=== PATIENT | male | born 1950 | race Caucasian/White ===

== ENCOUNTER 2022-09-24 20:30 | Observation (INO) | payer MEDICARE, SELFPAY ==
[2022-09-24] VITALS (9 sets, daily range): BP systolic 104–157; BP diastolic 53–59; PULSE 83–104; RESP 16–24; TEMP 36.6–36.9; O2SAT 90–100; BMI 27.1; BMI 26.6
--- NOTE | 2022-09-24 20:44 | ED.VIS.DYS ---
HPI History of Present Illness Chief Complaint: Shortness of Breath Narrative Narrative: Patient presents with dyspnea and weakness. He was discharged from another hospital today to home. He lives by himself and cannot care for himself at home and he is still short of breath. He was admitted for COPD. He is denying any fever or chills. He admits to weakness. He is on 5 L of oxygen at home. [facility] Medical History COPD (chronic obstructive pulmonary disease) Home Medications albuterol sulfate 90 mcg/actuation aerosol inhaler (Proventil HFA) 2 puff inhalation Q4H PRN Wheezing 09/24/22 [History Last Taken Unknown] aspirin 81 mg chewable tablet 81 mg PO DAILY 09/24/22 [History Last Taken Unknown] atorvastatin 80 mg tablet 80 mg PO QHS 09/24/22 [History Last Taken Unknown] carvedilol 3.125 mg tablet 3.125 mg PO BID 09/24/22 [History Last Taken Unknown] dextromethorphan-guaifenesin ER 60 mg-1,200 mg tab,extend release,12hr 1 tab PO Q12H PRN Congestion 09/24/22 [History Last Taken Unknown] escitalopram oxalate 5 mg tablet 5 mg PO DAILY 09/24/22 [History Last Taken Unknown] fluticasone fur. 100 mcg-umeclid 62.5 mcg-vilant 25 mcg inhalat.powder (Trelegy Ellipta) 1 inh inhalation DAILY 09/24/22 [History Last Taken Unknown] gabapentin 300 mg capsule 300 mg PO TID PRN Pain 09/24/22 [History Last Taken Unknown] guaifenesin 600 mg tablet, extended release 12 hr 600 mg PO Q12H PRN Cold Symptoms 09/24/22 [History Last Taken Unknown] ipratropium 0.5 mg-albuterol 3 mg (2.5 mg base)/3 mL nebulization soln 3 ml inhalation Q4H PRN Shortness Of Breath 09/24/22 [History Last Taken Unknown] lisinopril 5 mg tablet 5 mg PO DAILY 09/24/22 [History Last Taken Unknown] lorazepam 0.5 mg tablet 0.5 mg PO TID PRN Anxiety 09/24/22 [History Last Taken Unknown] melatonin 3 mg capsule 6 mg PO QHS PRN Insomnia 09/24/22 [History Last Taken Unknown] quetiapine 25 mg tablet (Seroquel) 25 mg PO QHS 09/24/22 [History Last Taken Unknown] trazodone 100 mg tablet 100 mg PO QHS 09/24/22 [History Last Taken Unknown] trazodone 50 mg tablet 50 mg PO QHS 09/24/22 [History Last Taken Unknown] Allergy/AdvReac Type Severity Reaction Status Date / Time No Known Allergies Allergy Verified 09/24/22 20:37 Social History Smoking Status: Former smoker ROS ROS ED ROS Narrative Past medical history: Reviewed, includes COPD, hypertension Medications: Reviewed Social history: Noncontributory Review of systems: General: No fever. Generalized weakness Eyes: No visual changes ENT: No upper airway congestion, normal voice Neck: No neck pain Cardiovascular: No chest pain Respiratory: Dyspnea as in HPI Gastrointestinal: No abdominal pain, nausea vomiting or diarrhea Genitourinary: No dysuria Musculoskeletal: No myalgia or calf pain Skin: No rash Neurological: No memory loss, confusion or any focal weakness EXAM Physical Exam Narrative Exam Narrative: Physical exam General: Patient appears chronically ill. He appears in some distress Head: Normocephalic, Atraumatic Eyes: Conjunctiva not pale ENT: Somewhat dry mucous membranes Neck: Supple, Nontender, No lymphadenopathy Cardiovascular: Regular rate, Regular rhythm Respiratory: Coarse bilateral breath sounds with wheezing and rhonchi Abdomen: Soft, Nontender, Nondistended Back: Nontender, Normal Inspection. Negative for: CVA tenderness Extremities: Nontender, No edema Skin: Normal color, No rash Neurological: No focal deficits Const Vital Signs: 09/24/22 20:32 09/24/22 20:35 09/24/22 20:43 Temperature 98.5 F 98.5 F Temperature Source Temporal Temporal Pulse Rate 104 H 100 Respiratory Rate 18 18 Respiratory Effort Short of Breath Respiratory Depth Deep Blood Pressure 135/59 H 135/59 H Blood Pressure Mean 84 84 Pulse Ox 98 98 Oxygen Delivery Method Nasal Cannula Nasal Cannula Nasal Cannula Oxygen Flow Rate (L/min) 5 5 5 09/24/22 20:54 Temperature Temperature Source Pulse Rate 98 Respiratory Rate 16 Respiratory Effort Respiratory Depth Blood Pressure Blood Pressure Mean Pulse Ox Oxygen Delivery Method Oxygen Flow Rate (L/min) MDM MDM MDM Narrative Medical decision making narrative: In the pertinent interpretation: Chest x-ray read by me shows COPD. Otherwise no acute findings. Telemetry: Sinus rhythm with a rate in the 90s without ectopy EKG: Sinus rhythm with a rate of 98. Normal LA, QTc is slightly elevated at 472. Nonspecific changes throughout. Otherwise unremarkable EKG MDM: Patient has COPD. It is obvious it is quite severe. He is on home oxygen. He is also quite weak and I talked with him about ADLs he got home today and was quite short of breath however he does not feel like he could perform most of his ADLs. Because of this I talked to him about fpc placement and he is agreeable and I will admit him to the hospital so we can get this done. It is almost 10 PM and I cannot place him in a fpc tonight. I will talk to hospitalist for admission. Blood work, CBC CMP, troponin and natruretic peptide were unremarkable other than slight leukocytosis. There is no evidence of infection I do not believe the patient meets criteria for antibiotics at this time. Lab Data Labs: Laboratory Results - last 24 hr 09/24/22 09/24/22 09/24/22 20:35 20:35 20:35 WBC 14.9 H RBC 3.37 L Hgb 10.2 L Hct 32.6 L MCV 96.7 H MCH 30.3 MCHC 31.3 L RDW Std Deviation 52.0 H RDW Coeff of Jessica 14.9 H Plt Count 211 MPV 10.8 Immature Gran % (Auto) 0.600 Neut % (Auto) 80.7 H Lymph % (Auto) 10.3 L [place] % (Auto) 5.1 Eos % (Auto) 3.2 Baso % (Auto) 0.1 Absolute Neuts (auto) 12.0 H Absolute Lymphs (auto) 1.53 Nucleated RBC % 0 Differential Comment SCANNED Sodium 138 Potassium 4.5 Chloride 98 Carbon Dioxide 38.0 H Anion Gap 2 L BUN 27 H Creatinine 1.03 Estim Creat Clear Calc 59.72 Est GFR (MDRD) Af Amer 91 Est GFR (MDRD) Non-Af 75 BUN/Creatinine Ratio 26.2 H Glucose 107 H Calcium 8.5 Total Bilirubin 0.70 AST 37 ALT 66 H Alkaline Phosphatase 96 Troponin I High Sens 18 B-Natriuretic Peptide 38.1 Total Protein 6.8 Albumin 3.0 L Globulin 3.8 Albumin/Globulin Ratio 0.8 L Discharge Plan Triage Chief Complaint: Shortness of Breath ED Provider: Naresh Navarrete Dx/Rx/DC Orders Clinical Impression: COPD (chronic obstructive pulmonary disease), Weakness, Debility Prescriptions: No Action quetiapine [Seroquel] 25 mg Tablet 25 mg PO QHS atorvastatin 80 mg Tablet 80 mg PO QHS ipratropium-albuterol 0.5 mg-3 mg(2.5 mg base)/3 mL Solution For Nebulization 3 ml INHALATION Q4H PRN (Reason: Shortness Of Breath) trazodone 50 mg Tablet 50 mg PO QHS carvedilol 3.125 mg Tablet 3.125 mg PO BID Rx Instructions: must administer with a meal/food lorazepam 0.5 mg Tablet 0.5 mg PO TID PRN (Reason: Anxiety) trazodone 100 mg Tablet 100 mg PO QHS gabapentin 300 mg Capsule 300 mg PO TID PRN (Reason: Pain) dextromethorphan-guaifenesin 60-1,200 mg Tablet Extended Release 12 Hr 1 tab PO Q12H PRN (Reason: Congestion) aspirin 81 mg Tablet,Chewable 81 mg PO DAILY lisinopril 5 mg Tablet 5 mg PO DAILY albuterol sulfate [Proventil HFA] 90 mcg/actuation Hfa Aerosol Inhaler 2 puff INHALATION Q4H PRN (Reason: Wheezing) escitalopram oxalate 5 mg Tablet 5 mg PO DAILY guaifenesin 600 mg Tablet Extended Release 12hr 600 mg PO Q12H PRN (Reason: Cold Symptoms) Trelegy Ellipta 100-62.5-25 mcg Blister With Device 1 inh INHALATION DAILY melatonin 3 mg Capsule 6 mg PO QHS PRN (Reason: Insomnia) Primary Care Provider: [facility] Doctor,Out of Referrals: [facility] [address] Doctor,Out of [Primary Care Provider] - Disposition Disposition: Acute Care [facility]
--- NOTE | 2022-09-24 20:50 | RAD_ITS ---
STUDY: X-RAY CHEST REASON FOR EXAM: Male, 72 years old. sob TECHNIQUE: Single AP portable view of the chest. COMPARISON: None. FINDINGS: There is hyperinflation of the lungs consistent with chronic obstructive lung disease (COPD). Extensive fibrotic and scarring changes are seen and there is a large bulla on the right upper hemithorax measuring approximately 12.5 cm greatest dimension. No infiltrates. No effusions. There is no demonstrated pleural abnormality. There is moderate cardiac enlargement. Normal mediastinum and hugo. There is prominence of the pulmonary hilar arteries without peripheral pulmonary vascular congestion, suggesting pulmonary hypertension. There is atherosclerotic calcification of the aortic arch with tortuosity. There are diffuse degenerative changes of the visualized thoracic spine. There is degenerative osteoarthritis of the bilateral shoulders. There is no demonstrated abnormality of the visualized soft tissue structures of the upper abdomen. RAD/Chest 1 View (Portable) IMPRESSION: Severe chronic pulmonary disease. No definite acute abnormalities. Electronically Signed: Herber Barry MD at 21:16 EDT ,
[2022-09-24] MEDS: Ipratropium/Albuterol Sulfate 3 ML AMPUL.NEB INHALATION ×2 (20:52→23:23)
[2022-09-24 21:00] LABS: Absolute Lymphocyte Count 1.53 X10^3/uL (0.83-4.51); Basophil# 0.02 X10^3/uL; Basophil% 0.1 % (0-1); Eosinophil# 0.48 X10^3/uL; Eosinophils% 3.2 % (0-5); Hematocrit 32.6 % (40-54); Hemoglobin 10.2 g/dL (13.0-16.5); Lymphocyte # 1.53 X10^3/ul (0.83-4.51); Lymphocyte % 10.3 % (19-41); Mean Corp Hgb Conc 31.3 g/dL (32-36); Mean Corpuscular Hgb 30.3 pg (27.0-32.0); Mean Corpuscular Volume 96.7 fL (80-94); Mean Platelet Vol. 10.8 fl (6.2-12.0); Monocyte# 0.75 X10^3/uL; Monocyte% 5.1 % (0-10); NRBC Flagged by Analyzer 0 % (0-5); Neutrophil # 11.98 X10^3/uL (2.7-7.7); Neutrophil % 80.7 % (47-70); POSITIVE COUNT YES; Platelet Count 211 K/mm3 (150-450); RBC Distribution Width CV 14.9 % (11.6-14.6); Red Blood Count 3.37 M/mm3 (4.6-6.2); White Blood Count 14.9 K/mm3 (4.4-11.0)
[2022-09-24 21:02] LABS: Differential Indicated SCAN CRITERIA MET
[2022-09-24 21:10] LABS: ALB/GLOB Ratio 0.8 RATIO (0.9-2.4); AST(SGOT) 37 U/L (15-37); Alanine Aminotransfer ALT/SGPT 66 U/L (16-61); Alkaline Phosphatase 96 U/L (45-117); Anion Gap 2 (5-15); BUN 27 mg/dL (7-18); BUN/Creat Ratio 26.2 RATIO (10-20); Calcium,Total 8.5 mg/dL (8.5-10.1); Chloride 98 mmol/L (98-107); Creatinine, Serum 1.03 mg/dL (0.70-1.30); EST Glomerular Filtration Rate 75 mL/min (>60); Est Glom Filt Rate - Afr Amer 91 mL/min (>60); Estimated Creatinine Clearance 59.72 ml/min; Globulin 3.8 g/dL (2.2-4.2); Glucose 107 mg/dL (74-106); Potassium 4.5 mmol/L (3.5-5.1); Protein, Total 6.8 g/dL (6.4-8.2); Sodium Level 138 mmol/L (136-145); Troponin-I HS 18 pg/mL (3.0-78.0)
[2022-09-24 21:20] LABS: Differential Comment SCANNED
[2022-09-24 21:27] LABS: BNP,B-Type NATRIURETIC PEPTIDE 38.1 pg/mL (0-100)
--- NOTE | 2022-09-24 23:51 | PCM.HP.STD ---
HPI - General General Date of Admission: 09/24/22 Date of Service: 09/24/22 Chief Complaint: feel short of breath HPI Narrative LILIA BALTAZAR, is a 72 M who presents with shortness of breath after just being discharged from [facility] for COPD (hospitalized 3-5 days). He went home at 5 pm but felt very short of breath, even when sitting there trying to hold conversation with neighbor. He is also feeling like he can't keep up his ADL's in this state. He is on 5 liters baseline and does use duoneb machine which he tried at home tonight but it did not bring relief of symptoms. His daughter sees him about once weekly, and does grocery shopping for him. Other than that he is alone for providing care except for neighbor. He was a lifelong smoker, stopped 3 yrs ago. He follows infrequently with a manufacturing process technician, last appt about 8 mo ago. He has history of mild heart attack about 4 years ago and states he is continuing his medications for this. [facility] Medical History Amputation of arm CAD (coronary artery disease) COPD (chronic obstructive pulmonary disease) Ex-smoker Home Medications albuterol sulfate 90 mcg/actuation aerosol inhaler (Proventil HFA) 2 puff inhalation Q4H PRN Wheezing 09/24/22 [History Last Taken 09/24/22] aspirin 81 mg chewable tablet 81 mg PO DAILY heart health 09/24/22 [History Last Taken 09/24/22] atorvastatin 80 mg tablet 80 mg PO QHS cholesterol 09/24/22 [History Last Taken 09/23/22] carvedilol 3.125 mg tablet 3.125 mg PO BIDCM Check with primary doctor 09/24/22 [History Last Taken 09/24/22] dextromethorphan-guaifenesin ER 60 mg-1,200 mg tab,extend release,12hr 1 tab PO Q12H PRN Congestion 09/24/22 [History Last Taken Unknown] escitalopram oxalate 5 mg tablet 5 mg PO DAILY Check with primary doctor 09/24/22 [History Last Taken 09/24/22] fluticasone fur. 100 mcg-umeclid 62.5 mcg-vilant 25 mcg inhalat.powder (Trelegy Ellipta) 1 inh inhalation DAILY Check with primary doctor 09/24/22 [History Last Taken Unknown] gabapentin 300 mg capsule 300 mg PO TID PRN Pain 09/24/22 [History Last Taken Unknown] guaifenesin 600 mg tablet, extended release 12 hr 1,200 mg PO Q12H PRN Cold Symptoms 09/24/22 [History Last Taken 09/24/22] ipratropium 0.5 mg-albuterol 3 mg (2.5 mg base)/3 mL nebulization soln 3 ml inhalation Q4H PRN Shortness Of Breath 09/24/22 [History Last Taken 09/24/22] lisinopril 5 mg tablet 5 mg PO DAILY Check with primary doctor 09/24/22 [History Last Taken 09/24/22] lorazepam 0.5 mg tablet 0.5 mg PO TID PRN Anxiety 09/24/22 [History Last Taken 09/24/22] melatonin 3 mg capsule 6 mg PO QHS PRN Insomnia 09/24/22 [History Last Taken Unknown] quetiapine 25 mg tablet (Seroquel) 25 mg PO QHS sleep 09/24/22 [History Last Taken 09/23/22] trazodone 100 mg tablet 100 mg PO QHS sleep 09/24/22 [History Last Taken Unknown] Allergy/AdvReac Type Severity Reaction Status Date / Time No Known Allergies Allergy Verified 09/24/22 20:37 Surgical History (Updated 09/24/22 @ 22:39 by Partha Sweet) History of ankle surgery Social History Smoking Status: Former smoker ROS ROS Narrative pertinent negatives and positives above per HPI Vital Signs Vital Signs Vital Signs: 09/24/22 20:32 09/24/22 20:35 09/24/22 20:43 Temperature 98.5 F 98.5 F Temperature Source Temporal Temporal Pulse Rate 104 H 100 Respiratory Rate 18 18 Respiratory Effort Short of Breath Respiratory Depth Deep Respiratory Pattern Blood Pressure 135/59 H 135/59 H Blood Pressure Mean 84 84 Blood Pressure Source Blood Pressure Position Blood Pressure Location Pulse Ox 98 98 Oxygen Delivery Method Nasal Cannula Nasal Cannula Nasal Cannula Oxygen Flow Rate (L/min) 5 5 5 09/24/22 20:54 09/24/22 21:51 09/24/22 22:46 Temperature 98.0 F 97.8 F Temperature Source Oral Oral Pulse Rate 98 94 89 Respiratory Rate 16 18 24 H Respiratory Effort Respiratory Depth Respiratory Pattern Blood Pressure 104/53 L 157/55 H Blood Pressure Mean 70 89 Blood Pressure Source Monitor Blood Pressure Position Semi-Fowlers Blood Pressure Location Right Arm Pulse Ox 100 100 Oxygen Delivery Method Nasal Cannula Nasal Cannula Oxygen Flow Rate (L/min) 5 5 09/24/22 22:54 09/24/22 22:56 09/24/22 23:04 Temperature 97.8 F Temperature Source Oral Pulse Rate 89 Respiratory Rate 24 H Respiratory Effort Normal Respiratory Depth Normal Respiratory Pattern Normal Blood Pressure 157/55 H Blood Pressure Mean 89 Blood Pressure Source Monitor Blood Pressure Position Semi-Fowlers Blood Pressure Location Right Arm Pulse Ox 90 97 Oxygen Delivery Method Nasal Cannula Nasal Cannula Nasal Cannula Oxygen Flow Rate (L/min) 5 4 3 Weight Weight: 170 lb 3.15 oz Body Mass Index (BMI) 26.6 Physical Exam Const alert General Appearance: cooperative HEENT normocephalic and head/scalp atraumatic Neck supple Resp normal respiratory effort Resp Narrative: Non productive cough. Course rales. Sounds plugged Cardio regular rate and regular rhythm GI normal to inspection, nondistended, normoactive bowel sounds Skin Skin Narrative: warm adn dry w/o edema Results Medical Records Data Attestation: I reviewed the patient's medical records Lab / Micro Data Attestation: I reviewed the patient's lab results. Result Diagrams: 09/24/22 20:35 09/24/22 20:35 Labs: Laboratory Results - last 24 hr 09/24/22 20:35: WBC 14.9 H, RBC 3.37 L, Hgb 10.2 L, Hct 32.6 L, MCV 96.7 H, MCH 30.3, MCHC 31.3 L, RDW Std Deviation 52.0 H, RDW Coeff of Jessica 14.9 H, Plt Count 211, MPV 10.8, Immature Gran % (Auto) 0.600, Neut % (Auto) 80.7 H, Lymph % (Auto) 10.3 L, [place] % (Auto) 5.1, Eos % (Auto) 3.2, Baso % (Auto) 0.1, Absolute Neuts (auto) 12.0 H, Absolute Lymphs (auto) 1.53, Nucleated RBC % 0, Differential Comment SCANNED 09/24/22 20:35: Sodium 138, Potassium 4.5, Chloride 98, Carbon Dioxide 38.0 H, Anion Gap 2 L, BUN 27 H, Creatinine 1.03, Estim Creat Clear Calc 59.72, Est GFR (MDRD) Af Amer 91, Est GFR (MDRD) Non-Af 75, BUN/Creatinine Ratio 26.2 H, Glucose 107 H, Calcium 8.5, Total Bilirubin 0.70, AST 37, ALT 66 H, Alkaline Phosphatase 96, Troponin I High Sens 18, Total Protein 6.8, Albumin 3.0 L, Globulin 3.8, Albumin/Globulin Ratio 0.8 L 09/24/22 20:35: B-Natriuretic Peptide 38.1 Assessment & Plan Assessment/Plan (1) COPD (chronic obstructive pulmonary disease): (2) Debility: (3) Weakness: (4) CAD (coronary artery disease): PLAN: Plan Severe COPD, Previous tobacco Use. At this point no sign to suggest acute flare or infection. CXR without consolidation. It shows hyperinflation. This is a worsening of chronic process. Sats 98-100 on 5 liters throughout interview. The patient is being admitted mainly for placement b/c he feels he can't do all his ADLs alone at this point. Continue Budesonide q12 hr schedule Continue daily Ellipta inhaler. Duonebs Incentive spirometry. Mucinex PT, OT and criminal justice social worker consults CAD Resume Coreg 3.25, baby aspirin HLD Resume statin 80 mg lipitor Normocytic Anemia Hgb 10.2, monitor. The patient is DNR CCA no intubation, discussed in detail with Mr Baltazar Charges/Coding Visit Charges Inpatient E&M: 02889 Init Hosp L3
[2022-09-25] VITALS (20 sets, daily range): BP systolic 97–131; BP diastolic 38–60; PULSE 60–88; RESP 18–24; TEMP 36.6–37.3; O2SAT 85–98
--- NOTE | 2022-09-25 02:33 | NURSING ---
Patient was up to the bathroom. Turned him up to 5L and was 80%. Once back to bed, patient was >90% on 2L.
[2022-09-25 05:42] LABS: Absolute Neutrophil Count 7.3 X10^3/uL (2.0-7.7); Basophil# 0.01 X10^3/uL; Basophil% 0.1 % (0-1); Eosinophil# 0.36 X10^3/uL; Eosinophils% 3.7 % (0-5); Hematocrit 27.6 % (40-54); Hemoglobin 8.4 g/dL (13.0-16.5); Lymphocyte % 13.5 % (19-41); Mean Corp Hgb Conc 30.4 g/dL (32-36); Mean Corpuscular Hgb 29.7 pg (27.0-32.0); Mean Corpuscular Volume 97.5 fL (80-94); Monocyte# 0.68 X10^3/uL; Monocyte% 7.1 % (0-10); NRBC Flagged by Analyzer 0 % (0-5); Neutrophil # 7.25 X10^3/uL (2.7-7.7); Neutrophil % 75.2 % (47-70); Platelet Count 191 K/mm3 (150-450); RBC Distribution Width CV 14.8 % (11.6-14.6); RBC Distribution Width SD 52.4 fl (35.1-43.9); Red Blood Count 2.83 M/mm3 (4.6-6.2); White Blood Count 9.6 K/mm3 (4.4-11.0)
[2022-09-25 06:04] LABS: Anion Gap 1 (5-15); BUN 24 mg/dL (7-18); BUN/Creat Ratio 28.4 RATIO (10-20); Calcium,Total 8.1 mg/dL (8.5-10.1); Chloride 99 mmol/L (98-107); Creatinine, Serum 0.85 mg/dL (0.70-1.30); EST Glomerular Filtration Rate 94 mL/min (>60); Est Glom Filt Rate - Afr Amer 114 mL/min (>60); Estimated Creatinine Clearance 72.36 ml/min; Glucose 81 mg/dL (74-106); Potassium 4.3 mmol/L (3.5-5.1); Sodium Level 141 mmol/L (136-145)
[2022-09-25] MEDS: Budesonide Respules 0.5 MG/2 ML AMPUL.NEB. INHALATION (07:37)
[2022-09-25] MEDS: Ipratropium/Albuterol Sulfate 3 ML AMPUL.NEB INHALATION ×5 (07:37→23:35)
[2022-09-25] MEDS: Escitalopram Oxalate 10 MG Tablet 5 MG PO (08:58)
[2022-09-25] MEDS: Lisinopril 5 MG Tablet PO (08:58)
[2022-09-25] MEDS: Carvedilol 3.125 MG TABLET PO (08:58)
[2022-09-25] MEDS: Aspirin 81 MG TAB.CHEW PO (08:58)
[2022-09-25] MEDS: Enoxaparin 40 MG/0.4 ML Syringe SC (08:59)
--- NOTE | 2022-09-25 09:29 | PCM.PN.HOSP ---
Reason for Visit Reason for Visit: Diagnoses Atherosclerotic heart disease of seminole coronary artery without angina pectoris (09/24/22) Chronic obstructive pulmonary disease, unspecified (09/24/22) Weakness (09/24/22) Other malaise (09/24/22) Subjective Subjective Endorses still feeling weak and short of breath Objective Data Objective Data Vital Signs: Vital Signs Temp Pulse Resp BP Pulse Ox O2 Del Method O2 Flow Rate 98.2 F 81 20 H 117/56 L 94 Nasal Cannula 3 09/25/22 08:32 09/25/22 08:32 09/25/22 08:32 09/25/22 08:32 09/25/22 08:32 09/25/22 08:40 09/25/22 08:40 Oxygen Flow Rate (L/min) 3 Oxygen Delivery Method Nasal Cannula Weight: 77.2 kg Body Mass Index (BMI) 26.6 Lab / Micro Data Result Diagrams: 09/25/22 05:05 09/25/22 05:05 Labs: Laboratory Results - last 24 hr 09/24/22 20:35: WBC 14.9 H, RBC 3.37 L, Hgb 10.2 L, Hct 32.6 L, MCV 96.7 H, MCH 30.3, MCHC 31.3 L, RDW Std Deviation 52.0 H, RDW Coeff of Jessica 14.9 H, Plt Count 211, MPV 10.8, Immature Gran % (Auto) 0.600, Neut % (Auto) 80.7 H, Lymph % (Auto) 10.3 L, [place] % (Auto) 5.1, Eos % (Auto) 3.2, Baso % (Auto) 0.1, Absolute Neuts (auto) 12.0 H, Absolute Lymphs (auto) 1.53, Nucleated RBC % 0, Differential Comment SCANNED 09/24/22 20:35: Sodium 138, Potassium 4.5, Chloride 98, Carbon Dioxide 38.0 H, Anion Gap 2 L, BUN 27 H, Creatinine 1.03, Estim Creat Clear Calc 59.72, Est GFR (MDRD) Af Amer 91, Est GFR (MDRD) Non-Af 75, BUN/Creatinine Ratio 26.2 H, Glucose 107 H, Calcium 8.5, Total Bilirubin 0.70, AST 37, ALT 66 H, Alkaline Phosphatase 96, Troponin I High Sens 18, Total Protein 6.8, Albumin 3.0 L, Globulin 3.8, Albumin/Globulin Ratio 0.8 L 09/24/22 20:35: B-Natriuretic Peptide 38.1 09/25/22 05:05: WBC 9.6, RBC 2.83 L, Hgb 8.4 L, Hct 27.6 L, MCV 97.5 H, MCH 29.7, MCHC 30.4 L, RDW Std Deviation 52.4 H, RDW Coeff of Jessica 14.8 H, Plt Count 191, MPV 10.0, Immature Gran % (Auto) 0.400, Neut % (Auto) 75.2 H, Lymph % (Auto) 13.5 L, [place] % (Auto) 7.1, Eos % (Auto) 3.7, Baso % (Auto) 0.1, Absolute Neuts (auto) 7.3, Absolute Lymphs (auto) 1.30, Nucleated RBC % 0 09/25/22 05:05: Sodium 141, Potassium 4.3, Chloride 99, Carbon Dioxide 41.0 H, Anion Gap 1 L, BUN 24 H, Creatinine 0.85, Estim Creat Clear Calc 72.36, Est GFR (MDRD) Af Amer 114, Est GFR (MDRD) Non-Af 94, BUN/Creatinine Ratio 28.4 H, Glucose 81, Calcium 8.1 L Physical Exam Narrative General: Alert, oriented, thin HEENT: Atraumatic, normocephalic Eyes: Anicteric, normal conjunctiva, extraocular movements grossly intact Neck: Supple Respiratory: Slight increased work of breathing, somewhat diminished throughout Cardiovascular: Regular rate and rhythm GI: Soft, nontender, nondistended Extremities: No edema Musculoskeletal: Moving all extremities Neuro: No overt focal neurological deficits Skin: No rashes appreciated Psych: Cooperative Assessment & Plan Assessment/Plan (1) COPD (chronic obstructive pulmonary disease): (2) Debility: (3) Weakness: (4) CAD (coronary artery disease): PLAN: Plan #Weakness, failure to thrive -Presented same day after being discharged from [facility] where he was hospitalized for 3 to 5 days for COPD exacerbation -Was feeling short of breath even just sitting trying to talk with neighbor and feels like he cannot maintain his ADLs -PT/OT -Case management -Given generalized weakness and age and comorbidities will decrease atorvastatin to 40 mg #Chronic hypoxic respiratory failure secondary to COPD -Chronically on 5 L O2 at baseline and uses DuoNebs at home -Does feel he has had some increased shortness of breath -Increase nebs to every 4 hours he reports this so he takes it at home, budesonide twice daily -BNP 38 -No previous chest x-ray and x-ray on admission with read still pending, given complaints we will repeat chest x-ray with PA and lateral to assess for any changes and will add Mucinex -Continue incentive spirometry -COVID-negative, respiratory panel pending -Low threshold to start steroids for any escalating symptoms but did not sound to be in exacerbation on presentation #History of coronary artery disease -Coreg changed to metoprolol due to low BP and possible bronchospasm, aspirin, statin #Anemia of unclear chronicity -Hemoglobin 10.2 on admission and this a.m. is 8.4 -No signs or symptoms of bleeding -All cell lines decreased -Continue to monitor -Can consider FOBT and further work-up if indicated #chronic HFpEF -Echo 07/03/2021 based on note from [place] demonstrates grade 1 left ventricular diastolic dysfunction EF around 40% with dilated RV with RV systolic function normal #DVT ppx: Lovenox subcu oLve Maria MD Time spent in the patient's overall evaluation,decision-making process, review of diagnostic data, adjustment of management, discussion with other providers, nursing nursing and ancillary staff involved in patient's care documentation, 30 minutes Charges/Coding Visit Charges Inpatient E&M: 83727 Subs Hosp L2
--- NOTE | 2022-09-25 09:49 | CASEMGMT ---
Discharge Planning SNF list created and given to SW. Keri Luna
--- NOTE | 2022-09-25 12:52 | CASEMGMT ---
Social Work SW received referral for SNF placement. SW met with pt and introduced self and role of SW. Pt is alert and oriented and willing to speak with SW for assessment. PCP: Pt states he has a PCP at the [facility] but pt cannot remember his name Specialists: Pt has a spring setter and management intern in [place] but pt cannot remember their names [facility] Insurance: Pt has both [employer] and Medicare A&B listed. Phone call to [employer] to clarify and awaiting return call. Pt states he has [employer] but does not have his wallet or insurance cards with him. LNOK: Mary Rivas, daughter Living Arrangements: Pt lives at home alone in a one story home with no steps to enter. Pt states he is independent with self care and household care. Pt does state he has been having difficulty cooking for himself and caring for himself. Transportation: Pt does not drive. Dgt and neighbor helps with groceries, dgt takes to doctor appointments DME: Oxygen through [employer], shower chair. No other DME. Pt states he was at the [facility] hospital this week and discharged yesterday. Pt with shortness of breath and came to [facility]. Pt stating he was planning to go to SNF, pt could not remember which one, from [facility] but was told yesterday he was being discharged home instead. Pt cannot understand why this was. Pt stating he needs additional assistance and cannot return home alone. A list of SNF providers including quality and resource use data and consistent with the patient?s preferred geographic region, medical needs, and insurance network were provided from the [employer] Guide. Pt states he does not have preference on SNF. SW encouraged pt to review list and SW offered to help pt review. Pt refused stating he does not care where he goes. SW inquired about geographical area and pt choosing [place]. Pt agreeable to phone call to dgt to discuss d/c plan. Phone call to dgt and VM left requesting return call. PLAN: SNF placement [facility] [place]
--- NOTE | 2022-09-25 14:43 | CASEMGMT ---
CANDICE CM in to discuss [place] form with patient. RN CM explained [place] form, patient voiced understanding. Pt signed form and filed in chart. Pt provided with a copy of signed [place] form. Patient had no further questions or concerns at this time.
--- NOTE | 2022-09-25 15:18 | CASEMGMT ---
Social Work No return call from pt daughter. NICA placed call to Patient [employer] who states pt insurance is [employer]. SW met with pt again and reviewed list of in network SNF providers. SW read information to pt. Pt again states he does not care which facility he goes to but prefers [facility] or [facility]. valeria Saavedra library clerical assistant updated and to send referrals to facilities in the requested area. Plan: SNF, pending acceptance and precert TOMMY [place]
--- NOTE | 2022-09-25 15:39 | CASEMGMT ---
Discharge Planning Patient would like SNF placement close to his daughter in [place]. Referrals sent via [facility] to [facility], [facility], [facility], [facility], and [facility]. Keri Luna
--- NOTE | 2022-09-25 16:50 | RAD_ITS ---
STUDY: X-RAY CHEST REASON FOR EXAM: Male, 72 years old. Refractory SOB TECHNIQUE: PA and lateral views of the chest. COMPARISON: September 24, 2022 FINDINGS: There is hyperinflation of the lungs consistent with chronic obstructive lung disease (COPD). There are moderate interstitial increased opacities in the mid and lower lungs. There is no demonstrated pleural abnormality. Normal size heart. Normal mediastinum and hugo. Normal visualized pulmonary arteries. Normal visualized aortic arch and descending thoracic aorta. There are diffuse degenerative changes of the visualized thoracic spine. There is degenerative change of the right shoulder. There are degenerative, postoperative, and posttraumatic changes of the left shoulder. There is no demonstrated abnormality of the visualized soft tissue structures of the upper abdomen. RAD/Chest PA and Lateral IMPRESSION: COPD with interstitial fibrosis or edema. Electronically Signed: Awais Fernandez MD at 18:39 EDT ,
[2022-09-25] MEDS: Gabapentin 300 MG Capsule PO (17:39)
[2022-09-25] MEDS: Metoprolol Tartrate 25 MG Tablet 12.5 MG PO (23:24)
[2022-09-25] MEDS: Atorvastatin Calcium 80 MG Tablet 40 MG PO (23:25)
[2022-09-25] MEDS: guaiFENesin 1,200 MG Tablet 1200 MG PO (23:25)
[2022-09-25] MEDS: MELATONIN 3 MG TABLET 6 MG PO (23:29)
[2022-09-25] MEDS: traZODone 50 MG Tablet PO (23:29)
[2022-09-25] MEDS: 0.9% Saline Lock 10 ML Syringe IV (23:45)
[2022-09-26] VITALS (18 sets, daily range): BP systolic 91–135; BP diastolic 54–78; PULSE 63–83; RESP 12–28; TEMP 36.6–37.1; O2SAT 79–99
--- NOTE | 2022-09-26 01:51 | NURSING ---
Patient got up to the bathroom without his NC O2 on. Patient dropped to 79%.
[2022-09-26 06:07] LABS: Absolute Lymphocyte Count 1.12 X10^3/uL (0.83-4.51); Absolute Neutrophil Count 6.5 X10^3/uL (2.0-7.7); Basophil# 0.01 X10^3/uL; Basophil% 0.1 % (0-1); Eosinophil# 0.27 X10^3/uL; Eosinophils% 3.2 % (0-5); Hematocrit 27.2 % (40-54); Hemoglobin 8.4 g/dL (13.0-16.5); Lymphocyte # 1.12 X10^3/ul (0.83-4.51); Lymphocyte % 13.2 % (19-41); Mean Corp Hgb Conc 30.9 g/dL (32-36); Mean Corpuscular Hgb 29.9 pg (27.0-32.0); Mean Corpuscular Volume 96.8 fL (80-94); Mean Platelet Vol. 10.2 fl (6.2-12.0); Monocyte# 0.62 X10^3/uL; Monocyte% 7.3 % (0-10); NRBC Flagged by Analyzer 0 % (0-5); Neutrophil # 6.46 X10^3/uL (2.7-7.7); Neutrophil % 75.8 % (47-70); Platelet Count 170 K/mm3 (150-450); RBC Distribution Width SD 53.1 fl (35.1-43.9); Red Blood Count 2.81 M/mm3 (4.6-6.2); White Blood Count 8.5 K/mm3 (4.4-11.0)
[2022-09-26 06:30] LABS: Anion Gap 2 (5-15); BUN 22 mg/dL (7-18); BUN/Creat Ratio 25.2 RATIO (10-20); Calcium,Total 8.2 mg/dL (8.5-10.1); Chloride 101 mmol/L (98-107); Creatinine, Serum 0.87 mg/dL (0.70-1.30); EST Glomerular Filtration Rate 91 mL/min (>60); Est Glom Filt Rate - Afr Amer 110 mL/min (>60); Glucose 86 mg/dL (74-106); Sodium Level 143 mmol/L (136-145)
[2022-09-26] MEDS: Budesonide Respules 0.5 MG/2 ML AMPUL.NEB. INHALATION ×2 (06:48→18:44)
[2022-09-26] MEDS: Ipratropium/Albuterol Sulfate 3 ML AMPUL.NEB INHALATION ×3 (06:48→18:43)
--- NOTE | 2022-09-26 07:56 | PCM.PN.HOSP ---
Reason for Visit Reason for Visit: Diagnoses Atherosclerotic heart disease of [place] coronary artery without angina pectoris (09/24/22) Chronic obstructive pulmonary disease, unspecified (09/24/22) Weakness (09/24/22) Other malaise (09/24/22) Subjective Subjective Follow-up shortness of breath and debility. Feels more short of breath this morning, attempted BiPAP overnight but only tolerated it for 2 to 3 hours before he could not sleep. Open to wearing it but reports he needs something to help him sleep without the case Objective Data Objective Data Vital Signs: Vital Signs Temp Pulse Resp BP Pulse Ox O2 Del Method O2 Flow Rate 98.8 F 75 16 91/78 90 Nasal Cannula 2 09/26/22 05:53 09/26/22 06:49 09/26/22 06:49 09/26/22 05:53 09/26/22 06:49 09/26/22 06:49 09/26/22 06:49 FiO2 30 09/26/22 01:47 Oxygen Flow Rate (L/min) 2 Oxygen Delivery Method Nasal Cannula Weight: 77.2 kg Body Mass Index (BMI) 26.6 Intake & Output: Intake and Output for Last 24 Hours 09/24/22 09/25/22 09/26/22 23:59 23:59 23:59 Intake Total 350 / 350 Balance 350 / 350 Lab / Micro Data Result Diagrams: 09/26/22 05:35 09/26/22 05:35 Labs: Laboratory Results - last 24 hr 09/26/22 05:35: WBC 8.5, RBC 2.81 L, Hgb 8.4 L, Hct 27.2 L, MCV 96.8 H, MCH 29.9, MCHC 30.9 L, RDW Std Deviation 53.1 H, RDW Coeff of Jessica 15.0 H, Plt Count 170, MPV 10.2, Immature Gran % (Auto) 0.400, Neut % (Auto) 75.8 H, Lymph % (Auto) 13.2 L, [place] % (Auto) 7.3, Eos % (Auto) 3.2, Baso % (Auto) 0.1, Absolute Neuts (auto) 6.5, Absolute Lymphs (auto) 1.12, Nucleated RBC % 0 09/26/22 05:35: Sodium 143, Potassium 4.0, Chloride 101, Carbon Dioxide 40.0 H, Anion Gap 2 L, BUN 22 H, Creatinine 0.87, Estim Creat Clear Calc 70.70, Est GFR (MDRD) Af Amer 110, Est GFR (MDRD) Non-Af 91, BUN/Creatinine Ratio 25.2 H, Glucose 86, Calcium 8.2 L Micro: Microbiology 09/25/22 13:35 Mucosa - Nasopharyngeal Respiratory Panel (PCR) - Final 09/25/22 13:20 Nasal Secretion SARS-CoV-2 Antigen (Rapid) - Final Radiography Diagnostic Testing: Radiology Impression Chest X-Ray 09/25/22 16:50 IMPRESSION: COPD with interstitial fibrosis or edema. 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 Neuro: No overt focal neurological deficits Skin: No rashes appreciated Psych: Cooperative Assessment & Plan Assessment/Plan (1) COPD (chronic obstructive pulmonary disease): (2) Debility: (3) Weakness: (4) CAD (coronary artery disease): PLAN: Plan #Weakness, failure to thrive -Presented same day after being discharged from [facility] where he was hospitalized for 3 to 5 days for COPD exacerbation -Was feeling short of breath even just sitting trying to talk with neighbor and feels like he cannot maintain his ADLs -PT/OT -Case management -Given generalized weakness and age and comorbidities will decrease atorvastatin to 40 mg -09/26: PT evaluated and recommended rehab/SNF/TCU, patient agreeable to SNF #Increased shortness of breath and chronic hypoxic respiratory failure secondary to COPD -Chronically on 5 L O2 at baseline and uses DuoNebs at home -Does feel he has had some increased shortness of breath -Increase nebs to every 4 hours he reports this so he takes it at home, budesonide twice daily -BNP 38 -No previous chest x-ray and x-ray on admission with read still pending, given complaints we will repeat chest x-ray with PA and lateral to assess for any changes and will add Mucinex -Continue incentive spirometry -COVID-negative, respiratory panel pending -Low threshold to start steroids for any escalating symptoms but did not sound to be in exacerbation on presentation -09/26: COVID and respiratory panel negative, remains on nebs, Mucinex, budesonide. Was tried briefly on room air last night and had O2 sat of 79%, continues to have increased shortness of breath, very poor airflow and wheezes and has wet cough but is unable to produce sputum, continue flutter valve, I-S, will order chest physiotherapy and IV steroids as he has failed current measures. Medication scheduled to help him sleep so he is able to tolerate BiPAP #History of coronary artery disease -Coreg changed to metoprolol due to low BP and possible bronchospasm, aspirin, statin #Anemia of unclear chronicity -Hemoglobin 10.2 on admission and this a.m. is 8.4 -No signs or symptoms of bleeding -All cell lines decreased -Continue to monitor -Can consider FOBT and further work-up if indicated -09/26: Hemoglobin stable today at 8.4, continue current medications #chronic HFpEF -Echo 07/03/2021 based on note from [place] demonstrates grade 1 left ventricular diastolic dysfunction EF around 40% with dilated RV with RV systolic function normal #DVT ppx: Lovenox subcu Love Maria MD Time spent in the patient's overall evaluation,decision-making process, review of diagnostic data, adjustment of management, discussion with other providers, nursing nursing and ancillary staff involved in patient's care documentation, 30 minutes Charges/Coding Visit Charges Inpatient E&M: 68543 Subs Hosp L2
[2022-09-26] MEDS: Enoxaparin 40 MG/0.4 ML Syringe SC (09:08)
[2022-09-26] MEDS: guaiFENesin 1,200 MG Tablet 1200 MG PO ×2 (09:08→22:15)
[2022-09-26] MEDS: Aspirin 81 MG TAB.CHEW PO (09:08)
[2022-09-26] MEDS: Escitalopram Oxalate 10 MG Tablet 5 MG PO (09:08)
[2022-09-26] MEDS: Metoprolol Tartrate 25 MG Tablet 12.5 MG PO ×2 (09:08→22:14)
--- NOTE | 2022-09-26 10:53 | CASEMGMT ---
Social Work SW called daughter, left another message for her. SW met w/pt, reviewed the nursing homes that accepted him and their locations. Pt is agreeable to the referral at [facility]. D/C retail plannerjones Saavedra will let them know to start precert. JENNIFER Badillo
--- NOTE | 2022-09-26 11:05 | CASEMGMT ---
Discharge Planning Patient has chosen [facility] and they have accepted. Updates sent via [employer]. Asked that pre-cert be submitted. Keri Luna
--- NOTE | 2022-09-26 11:18 | CASEMGMT ---
Discharge Planning [facility] to start pre-cert. Keri Luna
[2022-09-26] MEDS: 0.9% Saline Lock 10 ML Syringe IV ×2 (14:09→22:22)
[2022-09-26] MEDS: Methylprednisolone Sod Succ 40 MG/ML VIAL IV ×2 (14:09→22:11)
[2022-09-26] MEDS: Albuterol 2.5 MG/3 ML VIAL.NEB. INHALATION (15:02)
[2022-09-26] MEDS: Acetaminophen 325 MG Tablet 650 MG PO (17:31)
[2022-09-26] MEDS: Atorvastatin Calcium 80 MG Tablet 40 MG PO (22:13)
[2022-09-26] MEDS: traZODone 100 MG Tablet PO (22:15)
[2022-09-26] MEDS: MELATONIN 3 MG TABLET 10 MG PO (22:16)
[2022-09-27] VITALS (15 sets, daily range): BP systolic 122–147; BP diastolic 58–65; PULSE 63–90; RESP 16–22; TEMP 36.5–36.8; O2SAT 92–98
[2022-09-27] MEDS: LORazepam 0.5 MG Tablet 0.25 MG PO ×2 (00:04→22:46)
[2022-09-27] MEDS: Albuterol 2.5 MG/3 ML VIAL.NEB. INHALATION (01:36)
[2022-09-27] MEDS: Methylprednisolone Sod Succ 40 MG/ML VIAL IV ×2 (05:50→13:43)
[2022-09-27] MEDS: 0.9% Saline Lock 10 ML Syringe IV (05:51)
[2022-09-27] MEDS: Budesonide Respules 0.5 MG/2 ML AMPUL.NEB. INHALATION ×2 (06:40→19:44)
[2022-09-27] MEDS: Ipratropium/Albuterol Sulfate 3 ML AMPUL.NEB INHALATION ×5 (06:40→23:58)
--- NOTE | 2022-09-27 07:14 | PCM.PN.HOSP ---
Reason for Visit Reason for Visit: Diagnoses Atherosclerotic heart disease of [place] coronary artery without angina pectoris (09/24/22) Chronic obstructive pulmonary disease, unspecified (09/24/22) Weakness (09/24/22) Other malaise (09/24/22) Subjective Subjective Does feel his breathing is improving but was unable to sleep last night since the steroids were started, still has cough but has been unable to produce sputum for sample Objective Data Objective Data Vital Signs: Vital Signs Temp Pulse Resp BP Pulse Ox O2 Del Method O2 Flow Rate 98.2 F 73 22 H 122/65 H 96 Nasal Cannula 2 09/27/22 05:49 09/27/22 06:40 09/27/22 06:40 09/27/22 05:49 09/27/22 06:40 09/27/22 06:40 09/27/22 06:40 FiO2 30 09/26/22 22:45 Oxygen Flow Rate (L/min) 2 Oxygen Delivery Method Nasal Cannula Weight: 77.2 kg Body Mass Index (BMI) 26.6 Intake & Output: Intake and Output for Last 24 Hours 09/25/22 09/26/22 09/27/22 23:59 23:59 23:59 Intake Total 350 / 350 250 / 250 300 / 300 Output Total 250 / 250 Balance 350 / 350 0 / 0 300 / 300 Lab / Micro Data Result Diagrams: 09/27/22 07:06 09/27/22 07:06 Micro: Microbiology 09/25/22 13:35 Mucosa - Nasopharyngeal Respiratory Panel (PCR) - Final 09/25/22 13:20 Nasal Secretion SARS-CoV-2 Antigen (Rapid) - Final Radiography Diagnostic Testing: Radiology Impression Chest X-Ray 09/24/22 20:50 IMPRESSION: Severe chronic pulmonary disease. No definite acute abnormalities. 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 Neuro: No overt focal neurological deficits Skin: No rashes appreciated Psych: Cooperative Assessment & Plan Assessment/Plan (1) COPD (chronic obstructive pulmonary disease): (2) Debility: (3) Weakness: (4) CAD (coronary artery disease): PLAN: Plan #Weakness, failure to thrive -Presented same day after being discharged from [facility] where he was hospitalized for 3 to 5 days for COPD exacerbation -Was feeling short of breath even just sitting trying to talk with neighbor and feels like he cannot maintain his ADLs -PT/OT -Case management -Given generalized weakness and age and comorbidities will decrease atorvastatin to 40 mg -09/26: PT evaluated and recommended rehab/SNF/TCU, patient agreeable to SNF -09/27: Awaiting pre-CERT, continue PT #Increased shortness of breath and chronic hypoxic respiratory failure secondary to COPD -Chronically on 5 L O2 at baseline and uses DuoNebs at home -Does feel he has had some increased shortness of breath -Increase nebs to every 4 hours he reports this so he takes it at home, budesonide twice daily -BNP 38 -No previous chest x-ray and x-ray on admission with read still pending, given complaints we will repeat chest x-ray with PA and lateral to assess for any changes and will add Mucinex -Continue incentive spirometry -COVID-negative, respiratory panel pending -Low threshold to start steroids for any escalating symptoms but did not sound to be in exacerbation on presentation -09/26: COVID and respiratory panel negative, remains on nebs, Mucinex, budesonide. Was tried briefly on room air last night and had O2 sat of 79%, continues to have increased shortness of breath, very poor airflow and wheezes and has wet cough but is unable to produce sputum, continue flutter valve, I-S, will order chest physiotherapy and IV steroids as he has failed current measures. Medication scheduled to help him sleep so he is able to tolerate BiPAP -09/27: To switch to p.o. steroids tomorrow, is improving with addition of steroids, continue nebs #History of coronary artery disease -Coreg changed to metoprolol due to low BP and possible bronchospasm, aspirin, statin #Anemia of unclear chronicity -Hemoglobin 10.2 on admission and this a.m. is 8.4 -No signs or symptoms of bleeding -All cell lines decreased -Continue to monitor -Can consider FOBT and further work-up if indicated -09/26: Hemoglobin stable today at 8.4, continue current medications -09/27: Hemoglobin stable #chronic HFpEF -Echo 07/03/2021 based on note from [place] demonstrates grade 1 left ventricular diastolic dysfunction EF around 40% with dilated RV with RV systolic function normal #DVT ppx: Lovenox subcu Love Maria MD Time spent in the patient's overall evaluation,decision-making process, review of diagnostic data, adjustment of management, discussion with other providers, nursing nursing and ancillary staff involved in patient's care documentation, 30 minutes Charges/Coding Visit Charges Inpatient E&M: 33027 Subs Hosp L2
[2022-09-27 08:00] LABS: Absolute Lymphocyte Count 0.64 X10^3/uL (0.83-4.51); Absolute Neutrophil Count 6.4 X10^3/uL (2.0-7.7); Hematocrit 31.5 % (40-54); Hemoglobin 9.5 g/dL (13.0-16.5); Lymphocyte # 0.64 X10^3/ul (0.83-4.51); Mean Corp Hgb Conc 30.2 g/dL (32-36); Mean Corpuscular Hgb 29.1 pg (27.0-32.0); Mean Corpuscular Volume 96.6 fL (80-94); Mean Platelet Vol. 10.4 fl (6.2-12.0); Monocyte# 0.08 X10^3/uL; Monocyte% 1.1 % (0-10); NRBC Flagged by Analyzer 0 % (0-5); Neutrophil # 6.39 X10^3/uL (2.7-7.7); Neutrophil % 89.3 % (47-70); Platelet Count 185 K/mm3 (150-450); RBC Distribution Width CV 14.6 % (11.6-14.6); RBC Distribution Width SD 51.6 fl (35.1-43.9); Red Blood Count 3.26 M/mm3 (4.6-6.2); White Blood Count 7.2 K/mm3 (4.4-11.0)
[2022-09-27 08:14] LABS: Anion Gap 2 (5-15); BUN 21 mg/dL (7-18); BUN/Creat Ratio 20.4 RATIO (10-20); Calcium,Total 8.6 mg/dL (8.5-10.1); Chloride 100 mmol/L (98-107); Creatinine, Serum 1.03 mg/dL (0.70-1.30); EST Glomerular Filtration Rate 75 mL/min (>60); Est Glom Filt Rate - Afr Amer 91 mL/min (>60); Estimated Creatinine Clearance 59.72 ml/min; Glucose 146 mg/dL (74-106); Potassium 4.6 mmol/L (3.5-5.1); Sodium Level 139 mmol/L (136-145)
[2022-09-27] MEDS: Metoprolol Tartrate 25 MG Tablet 12.5 MG PO ×2 (09:30→20:01)
[2022-09-27] MEDS: Enoxaparin 40 MG/0.4 ML Syringe SC (09:30)
[2022-09-27] MEDS: Escitalopram Oxalate 10 MG Tablet 5 MG PO (09:31)
[2022-09-27] MEDS: guaiFENesin 1,200 MG Tablet 1200 MG PO ×2 (09:31→20:02)
[2022-09-27] MEDS: Aspirin 81 MG TAB.CHEW PO (09:31)
--- NOTE | 2022-09-27 17:26 | CASEMGMT ---
Addendum entered and electronically signed by Lorrie Patrick 09/27/22 17:40: Spoke with patient's daughter Mary Rivas at [phone] and updated to planning. -ricardo Original Note: [facility] when [facility] is obtained. Green Sheet is on the chart, to be followed at time of discharge, should percert come back this weekend. [facility] aware to notify [facility] nurses station. PASRR screen is completed and attached to the Green Sheet. PLAN: Skilled level of care pending precert. PASRR completed. -CAROL Suresh, RISK CONSULTANT
--- NOTE | 2022-09-27 17:42 | CASEMGMT ---
Advanced Directive Validation Spoke with patient's daughter Mary who confirms to be the POAHC, though does not have copies of the paperwork (POAHC and Living Will). Mary reports [facility] had a copy on file. Mary reports patient has been to [place] twice in the last month, home for 24 hours the first time, then less than 2 hours after the 2nd visit, which then prompted decision to come to [place] for 3rd visit to hospital. Supportive listening offered. Plan: Will attempt to secure Advanced Directives from [facility]. Discharge Plan: SNF, pending insurance precert. -CAROL Suresh, TELEGRAPH OFFICE ROUTE AIDE
[2022-09-27] MEDS: Atorvastatin Calcium 80 MG Tablet 40 MG PO (20:01)
[2022-09-27] MEDS: Acetaminophen 325 MG Tablet 650 MG PO (20:06)
[2022-09-27] MEDS: MELATONIN 10 MG TABLET PO (22:45)
[2022-09-27] MEDS: traZODone 100 MG Tablet PO (22:45)
[2022-09-28] VITALS (15 sets, daily range): BP systolic 122–140; BP diastolic 60–74; PULSE 67–92; RESP 18–23; TEMP 36.4–36.8; O2SAT 89–100
[2022-09-28] MEDS: Sodium Chloride 0.65% 1 SPRAY SPRAY.BTL 2 SPRAY NASAL (02:07)
[2022-09-28 05:50] LABS: Absolute Neutrophil Count 8.4 X10^3/uL (2.0-7.7); Basophil# 0.01 X10^3/uL; Basophil% 0.1 % (0-1); Hematocrit 28.6 % (40-54); Hemoglobin 8.8 g/dL (13.0-16.5); Lymphocyte % 7.2 % (19-41); Mean Corp Hgb Conc 30.8 g/dL (32-36); Mean Corpuscular Hgb 29.9 pg (27.0-32.0); Mean Corpuscular Volume 97.3 fL (80-94); Mean Platelet Vol. 10.4 fl (6.2-12.0); Monocyte# 0.58 X10^3/uL; Monocyte% 5.9 % (0-10); NRBC Flagged by Analyzer 0 % (0-5); Neutrophil # 8.43 X10^3/uL (2.7-7.7); Neutrophil % 86.3 % (47-70); Platelet Count 185 K/mm3 (150-450); RBC Distribution Width CV 15.1 % (11.6-14.6); RBC Distribution Width SD 53.4 fl (35.1-43.9); Red Blood Count 2.94 M/mm3 (4.6-6.2); White Blood Count 9.8 K/mm3 (4.4-11.0)
[2022-09-28 06:18] LABS: Anion Gap 2 (5-15); BUN 27 mg/dL (7-18); BUN/Creat Ratio 28.4 RATIO (10-20); Calcium,Total 8.3 mg/dL (8.5-10.1); Chloride 103 mmol/L (98-107); Creatinine, Serum 0.95 mg/dL (0.70-1.30); EST Glomerular Filtration Rate 82 mL/min (>60); Est Glom Filt Rate - Afr Amer 100 mL/min (>60); Estimated Creatinine Clearance 64.75 ml/min; Glucose 116 mg/dL (74-106); Potassium 4.6 mmol/L (3.5-5.1); Sodium Level 142 mmol/L (136-145)
--- NOTE | 2022-09-28 06:49 | PCM.PN.HOSP ---
Reason for Visit Reason for Visit: Diagnoses Atherosclerotic heart disease of [place] coronary artery without angina pectoris (09/24/22) Chronic obstructive pulmonary disease, unspecified (09/24/22) Weakness (09/24/22) Other malaise (09/24/22) Subjective Subjective Continues to be short of breath but better than he had been, does have cough but has difficulty producing sputum Objective Data Objective Data Vital Signs: Vital Signs Temp Pulse Resp BP Pulse Ox O2 Del Method O2 Flow Rate 97.5 F L 67 18 133/70 H 95 Nasal Cannula 3 09/28/22 02:21 09/28/22 02:21 09/28/22 02:21 09/28/22 02:21 09/28/22 02:21 09/28/22 02:22 09/28/22 02:21 FiO2 30 09/26/22 22:45 Oxygen Flow Rate (L/min) 3 Oxygen Delivery Method Nasal Cannula Weight: 77.2 kg Body Mass Index (BMI) 26.6 Intake & Output: Intake and Output for Last 24 Hours 09/26/22 09/27/22 09/28/22 23:59 23:59 23:59 Intake Total 250 / 250 800 / 800 Output Total 250 / 250 Balance 0 / 0 800 / 800 Lab / Micro Data Result Diagrams: 09/28/22 05:17 09/28/22 05:17 Labs: Laboratory Results - last 24 hr 09/27/22 07:06: WBC 7.2, RBC 3.26 L, Hgb 9.5 L, Hct 31.5 L, MCV 96.6 H, MCH 29.1, MCHC 30.2 L, RDW Std Deviation 51.6 H, RDW Coeff of Jessica 14.6, Plt Count 185, MPV 10.4, Immature Gran % (Auto) 0.600, Neut % (Auto) 89.3 H, Lymph % (Auto) 9.0 L, [place] % (Auto) 1.1, Eos % (Auto) 0.0, Baso % (Auto) 0.0, Absolute Neuts (auto) 6.4, Absolute Lymphs (auto) 0.64 L, Nucleated RBC % 0 09/27/22 07:06: Sodium 139, Potassium 4.6, Chloride 100, Carbon Dioxide 37.0 H, Anion Gap 2 L, BUN 21 H, Creatinine 1.03, Estim Creat Clear Calc 59.72, Est GFR (MDRD) Af Amer 91, Est GFR (MDRD) Non-Af 75, BUN/Creatinine Ratio 20.4 H, Glucose 146 H, Calcium 8.6 09/28/22 05:17: WBC 9.8, RBC 2.94 L, Hgb 8.8 L, Hct 28.6 L, MCV 97.3 H, MCH 29.9, MCHC 30.8 L, RDW Std Deviation 53.4 H, RDW Coeff of Jessica 15.1 H, Plt Count 185, MPV 10.4, Immature Gran % (Auto) 0.500, Neut % (Auto) 86.3 H, Lymph % (Auto) 7.2 L, [place] % (Auto) 5.9, Eos % (Auto) 0.0, Baso % (Auto) 0.1, Absolute Neuts (auto) 8.4 H, Absolute Lymphs (auto) 0.70 L, Nucleated RBC % 0 09/28/22 05:17: Sodium 142, Potassium 4.6, Chloride 103, Carbon Dioxide 37.0 H, Anion Gap 2 L, BUN 27 H, Creatinine 0.95, Estim Creat Clear Calc 64.75, Est GFR (MDRD) Af Amer 100, Est GFR (MDRD) Non-Af 82, BUN/Creatinine Ratio 28.4 H, Glucose 116 H, Calcium 8.3 L Micro: Microbiology 09/25/22 13:35 Mucosa - Nasopharyngeal Respiratory Panel (PCR) - Final 09/25/22 13:20 Nasal Secretion SARS-CoV-2 Antigen (Rapid) - Final Physical Exam Narrative General: Alert, oriented, thin HEENT: Atraumatic, normocephalic Eyes: Anicteric, normal conjunctiva, extraocular movements grossly intact Neck: Supple Respiratory: Work of breathing improved, somewhat better airflow bilaterally Cardiovascular: Regular rate GI: Soft, nontender, nondistended Extremities: No edema Musculoskeletal: Moving all extremities, 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 Neuro: No overt focal neurological deficits Skin: No rashes appreciated Psych: Cooperative Assessment & Plan Assessment/Plan (1) COPD (chronic obstructive pulmonary disease): (2) Debility: (3) Weakness: (4) CAD (coronary artery disease): PLAN: Plan #Weakness, failure to thrive -Presented same day after being discharged from [facility] where he was hospitalized for 3 to 5 days for COPD exacerbation -Was feeling short of breath even just sitting trying to talk with neighbor and feels like he cannot maintain his ADLs -PT/OT -Case management -Given generalized weakness and age and comorbidities will decrease atorvastatin to 40 mg -09/26: PT evaluated and recommended rehab/SNF/TCU, patient agreeable to SNF -09/27: Awaiting pre-CERT, continue PT -09/28: Continue working with physical therapy #Increased shortness of breath and chronic hypoxic respiratory failure secondary to COPD -Chronically on 5 L O2 at baseline and uses DuoNebs at home -Does feel he has had some increased shortness of breath -Increase nebs to every 4 hours he reports this so he takes it at home, budesonide twice daily -BNP 38 -No previous chest x-ray and x-ray on admission with read still pending, given complaints we will repeat chest x-ray with PA and lateral to assess for any changes and will add Mucinex -Continue incentive spirometry -COVID-negative, respiratory panel pending -Low threshold to start steroids for any escalating symptoms but did not sound to be in exacerbation on presentation -09/26: COVID and respiratory panel negative, remains on nebs, Mucinex, budesonide. Was tried briefly on room air last night and had O2 sat of 79%, continues to have increased shortness of breath, very poor airflow and wheezes and has wet cough but is unable to produce sputum, continue flutter valve, I-S, will order chest physiotherapy and IV steroids as he has failed current measures. Medication scheduled to help him sleep so he is able to tolerate BiPAP -09/27: To switch to p.o. steroids tomorrow, is improving with addition of steroids, continue nebs -09/28: De-escalated to p.o. steroids, continue nebs, continue to encourage flutter valve incentive spirometry #History of coronary artery disease -Coreg changed to metoprolol due to low BP and possible bronchospasm, aspirin, statin #Anemia of unclear chronicity -Hemoglobin 10.2 on admission and this a.m. is 8.4 -No signs or symptoms of bleeding -All cell lines decreased -Continue to monitor -Can consider FOBT and further work-up if indicated -09/26: Hemoglobin stable today at 8.4, continue current medications -09/27: Hemoglobin stable #chronic HFpEF -Echo 07/03/2021 based on note from [place] demonstrates grade 1 left ventricular diastolic dysfunction EF around 40% with dilated RV with RV systolic function normal -09/28: Does not appear to be overloaded at this time, BNP on presentation 38.1 #DVT ppx: Lovenox subcu Love Maria MD Time spent in the patient's overall evaluation,decision-making process, review of diagnostic data, adjustment of management, discussion with other providers, nursing nursing and ancillary staff involved in patient's care documentation, 30 minutes Charges/Coding Visit Charges Inpatient E&M: 35268 Subs Hosp L2
[2022-09-28] MEDS: Budesonide Respules 0.5 MG/2 ML AMPUL.NEB. INHALATION ×2 (07:10→19:00)
[2022-09-28] MEDS: Ipratropium/Albuterol Sulfate 3 ML AMPUL.NEB INHALATION ×5 (07:10→23:33)
[2022-09-28] MEDS: Enoxaparin 40 MG/0.4 ML Syringe SC (07:39)
[2022-09-28] MEDS: Escitalopram Oxalate 10 MG Tablet 5 MG PO (07:39)
[2022-09-28] MEDS: Aspirin 81 MG TAB.CHEW PO (07:39)
[2022-09-28] MEDS: Metoprolol Tartrate 25 MG Tablet 12.5 MG PO ×2 (07:39→21:11)
[2022-09-28] MEDS: predniSONE 20 MG Tablet 40 MG PO (07:40)
[2022-09-28] MEDS: guaiFENesin 1,200 MG Tablet 1200 MG PO ×2 (07:40→21:11)
--- NOTE | 2022-09-28 12:20 | RAD_ITS ---
EXAM: XR CHEST, 1 VIEW CLINICAL INDICATION: SOB. TECHNIQUE: Frontal view of the chest. COMPARISON: 09/25/2022. FINDINGS: LUNGS AND PLEURAL SPACES: Large bleb in the right upper lobe is unchanged. No suspicious infiltrates. Mild pulmonary hyperinflation and flattening of the hemidiaphragms are unchanged. No pneumothorax. No effusion. HEART: Unremarkable. Cardiac silhouette not enlarged. MEDIASTINUM: Central airways and mediastinal contour are unremarkable. BONES/JOINTS: Fracture deformity of the left shoulder with 2 threaded metallic screws in the left glenoid process. SOFT TISSUES: Unremarkable. RAD/Chest 1 View (Portable) IMPRESSION: 1. No acute findings in the chest. 2. Large bleb in the right upper lobe and COPD are unchanged. Electronically Signed: Trino Miller MD at 15:21 EDT ,
[2022-09-28] MEDS: Furosemide 20 MG/2 ML VIAL IV (12:21)
--- NOTE | 2022-09-28 14:19 | CPS ---
Pt sounds much better after lasix, no longer coarse and wet.
[2022-09-28] MEDS: Atorvastatin Calcium 80 MG Tablet 40 MG PO (21:11)
[2022-09-28] MEDS: Acetaminophen 325 MG Tablet 650 MG PO (21:12)
[2022-09-28] MEDS: Gabapentin 300 MG Capsule PO (23:50)
[2022-09-28] MEDS: MELATONIN 10 MG TABLET PO (23:50)
[2022-09-28] MEDS: LORazepam 0.5 MG Tablet 0.25 MG PO (23:50)
[2022-09-29] VITALS (14 sets, daily range): BP systolic 118–129; BP diastolic 49–60; PULSE 67–97; RESP 18–24; TEMP 36.4–36.7; O2SAT 5–100
[2022-09-29] MEDS: Ipratropium/Albuterol Sulfate 3 ML AMPUL.NEB INHALATION ×4 (07:04→19:42)
--- NOTE | 2022-09-29 07:14 | PCM.PN.HOSP ---
Reason for Visit Reason for Visit: Diagnoses Atherosclerotic heart disease of [place] coronary artery without angina pectoris (09/24/22) Chronic obstructive pulmonary disease, unspecified (09/24/22) Weakness (09/24/22) Other malaise (09/24/22) Subjective Subjective Reports he is feeling somewhat better today after he got good sleep last night, breathing continues to improve Objective Data Objective Data Vital Signs: Vital Signs Temp Pulse Resp BP Pulse Ox O2 Del Method O2 Flow Rate 97.5 F L 67 18 129/49 H 95 Nasal Cannula 3 09/29/22 05:47 09/29/22 05:47 09/29/22 05:47 09/29/22 05:47 09/29/22 05:47 09/29/22 05:48 09/29/22 05:47 FiO2 30 09/26/22 22:45 Oxygen Flow Rate (L/min) 3 Oxygen Delivery Method Nasal Cannula Weight: 77.2 kg Body Mass Index (BMI) 26.6 Intake & Output: Intake and Output for Last 24 Hours 09/27/22 09/28/22 09/29/22 23:59 23:59 23:59 Intake Total 800 / 800 650 / 650 Output Total 800 / 800 Balance 800 / 800 -150 / -150 Lab / Micro Data Result Diagrams: 09/29/22 06:30 09/29/22 06:30 Micro: Microbiology 09/28/22 21:10 Sputum, Expectorated/Coughed Gram Stain - Preliminary 09/25/22 13:35 Mucosa - Nasopharyngeal Respiratory Panel (PCR) - Final 09/25/22 13:20 Nasal Secretion SARS-CoV-2 Antigen (Rapid) - Final Radiography Diagnostic Testing: Radiology Impression Chest X-Ray 09/28/22 12:20 IMPRESSION: 1. No acute findings in the chest. 2. Large bleb in the right upper lobe and COPD are unchanged. 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, Neuro: No overt focal neurological deficits Skin: No rashes appreciated Psych: Cooperative Assessment & Plan Assessment/Plan (1) COPD (chronic obstructive pulmonary disease): (2) Debility: (3) Weakness: (4) CAD (coronary artery disease): PLAN: Plan #Weakness, failure to thrive -Presented same day after being discharged from [facility] where he was hospitalized for 3 to 5 days for COPD exacerbation -Was feeling short of breath even just sitting trying to talk with neighbor and feels like he cannot maintain his ADLs -PT/OT -Case management -Given generalized weakness and age and comorbidities will decrease atorvastatin to 40 mg -09/26: PT evaluated and recommended rehab/SNF/TCU, patient agreeable to SNF -09/27: Awaiting pre-CERT, continue PT -09/28: Continue working with physical therapy -09/29: Patient has additional difficulty due to his arm amputation and was discussing various ways to troubleshoot this problem, continue to work with physical therapy #Increased shortness of breath and chronic hypoxic respiratory failure secondary to COPD -Chronically on 5 L O2 at baseline and uses DuoNebs at home -Does feel he has had some increased shortness of breath -Increase nebs to every 4 hours he reports this so he takes it at home, budesonide twice daily -BNP 38 -No previous chest x-ray and x-ray on admission with read still pending, given complaints we will repeat chest x-ray with PA and lateral to assess for any changes and will add Mucinex -Continue incentive spirometry -COVID-negative, respiratory panel pending -Low threshold to start steroids for any escalating symptoms but did not sound to be in exacerbation on presentation -09/26: COVID and respiratory panel negative, remains on nebs, Mucinex, budesonide. Was tried briefly on room air last night and had O2 sat of 79%, continues to have increased shortness of breath, very poor airflow and wheezes and has wet cough but is unable to produce sputum, continue flutter valve, I-S, will order chest physiotherapy and IV steroids as he has failed current measures. Medication scheduled to help him sleep so he is able to tolerate BiPAP -09/27: To switch to p.o. steroids tomorrow, is improving with addition of steroids, continue nebs -09/28: De-escalated to p.o. steroids, continue nebs, continue to encourage flutter valve incentive spirometry -09/29: Was able to produce sputum sample. Continue steroids and nebs, patient did have some crackles yesterday and x-ray appeared to have possible small left-sided pleural effusion and he responded well to Lasix. Echo 07/03/2021 based on note from Brandon demonstrates grade 1 left ventricular diastolic dysfunction EF around 40% with dilated RV with RV systolic function normal. Given he had borderline EF with a component of diastolic dysfunction and dilated RV will repeat echo to assess for worsening and eval if worsening heart failure could be component of slow recovery #History of coronary artery disease -Coreg changed to metoprolol due to low BP and possible bronchospasm, cont aspirin, statin #Anemia of unclear chronicity -Hemoglobin 10.2 on admission and this a.m. is 8.4 -No signs or symptoms of bleeding -All cell lines decreased -Continue to monitor -Can consider FOBT and further work-up if indicated -09/26: Hemoglobin stable today at 8.4, continue current medications -09/27: Hemoglobin stable #chronic HFpEF -Echo 07/03/2021 based on note from Brandon demonstrates grade 1 left ventricular diastolic dysfunction EF around 40% with dilated RV with RV systolic function normal -09/28: Does not appear to be peripherally overloaded at this time BNP on presentation 38.1 however he did have some crackles that responded to Lasix #DVT ppx: Lovenox subcu Love Maria MD Time spent in the patient's overall evaluation,decision-making process, review of diagnostic data, adjustment of management, discussion with other providers, nursing nursing and ancillary staff involved in patient's care documentation, 30 minutes Charges/Coding Visit Charges Inpatient E&M: 85621 Subs Hosp L2
--- NOTE | 2022-09-29 07:17 | ECHOCS_ITS ---
Reason For Study: Congenital heart disease, failure to thrive Procedure This was a 2D Doppler, Color Flow transthoracic echocardiogram. The study was technically difficult. Exam performed portable in patient room. Left Ventricle Normal left ventricle. Apical false tendon noted. Left ventricular systolic function is lower limits of normal. The estimated ejection fraction is 53 %. Stage 1 diastolic dysfunction. No regional wall motion abnormalities noted. Right Ventricle Normal RV size. Normal systolic function. Atria Normal left atrium. Normal right atrium. Mitral Valve There is mild mitral annular calcification. Trivial mitral valve insufficiency. Tricuspid Valve Normal tricuspid valve. Aortic Valve Trisinus/trileaflet aortic valve. Pulmonic Valve Normal pulmonic valve. Great Vessels Normal aortic root. The pulmonary artery is normal size. Normal inferior vena cava. Pericardium/Pleural No pericardial effusion. Medication Diluted definity 2ml given slow IV push to enhance endocardial definition. MMode/2D Measurements & Calculations LVIDd: 5.0 cm IVSd: 1.1 cm Ao root diam: 3.3 cm LVIDs: 3.5 cm LVPWd: 1.3 cm RVDd: 4.3 cm FS: 30.0 % LAV(MOD-bp): 33.0 ml LVAd ap4: 45.6 cm2 LVAd ap2: 39.3 cm2 LAV(MOD-bp) Indexed: 17.5 ml/m2 LVLd ap4: 9.8 cm LVLd ap2: 8.7 cm LAV(MOD-sp2): 30.3 ml EDV(MOD-sp4): 179.6 ml EDV(MOD-sp2): 144.8 ml LAV(MOD-sp4): 35.8 ml EDV(sp4-el): 180.2 ml EDV(sp2-el): 151.4 ml LVAs ap4: 28.4 cm2 LVAs ap2: 22.4 cm2 LVLs ap4: 8.1 cm LVLs ap2: 7.6 cm ESV(MOD-sp4): 86.0 ml ESV(MOD-sp2): 55.9 ml ESV(sp4-el): 84.5 ml ESV(sp2-el): 55.6 ml EF(MOD-sp4): 52.1 % EF(MOD-sp2): 61.4 % EF(sp4-el): 53.1 % SV(MOD-sp4): 93.6 ml SV(MOD-sp2): 88.9 ml SV(sp4-el): 95.6 ml LA A4 area: 16.3 cm2 LA dimension(2D): 2.9 cm RA A4 area: 17.9 cm2 TAPSE: 2.1 cm Time Measurements MV dec time: 0.22 sec Doppler Measurements & Calculations MV E max jakob: 89.2 cm/sec Lat Peak E' Jakob: 12.5 cm/sec Med Peak E' Jakob: 8.0 cm/sec MV A max jakob: 94.0 cm/sec E/E' lat: 7.1 E/E' med: 11.1 MV E/A: 0.95 Ao V2 max: 128.0 cm/sec LV V1 max: 93.2 cm/sec MV dec slope: 402.8 cm/sec2 Ao max P.6 mmHg LV V1 max P.5 mmHg PA V2 max: 88.9 cm/sec ECHO/Echo Complete W/ Contrast Interpretation Summary Normal left ventricle. Left ventricular systolic function is lower limits of normal. The estimated ejection fraction is 53 %. Stage 1 diastolic dysfunction. There is mild mitral annular calcification. Apical false tendon noted. Ordering Physician: Love Maria Performed By: Lizyz Londono RDCS
[2022-09-29 07:26] LABS: Absolute Lymphocyte Count 1.59 X10^3/uL (0.83-4.51); Absolute Neutrophil Count 5.3 X10^3/uL (2.0-7.7); Basophil# 0.01 X10^3/uL; Basophil% 0.1 % (0-1); Eosinophil# 0.05 X10^3/uL; Eosinophils% 0.7 % (0-5); Hemoglobin 9.2 g/dL (13.0-16.5); Lymphocyte # 1.59 X10^3/ul (0.83-4.51); Lymphocyte % 20.8 % (19-41); Mean Corp Hgb Conc 29.7 g/dL (32-36); Mean Corpuscular Hgb 29.6 pg (27.0-32.0); Mean Corpuscular Volume 99.7 fL (80-94); Mean Platelet Vol. 10.6 fl (6.2-12.0); Monocyte# 0.63 X10^3/uL; Monocyte% 8.2 % (0-10); NRBC Flagged by Analyzer 0 % (0-5); Neutrophil # 5.34 X10^3/uL (2.7-7.7); Neutrophil % 69.8 % (47-70); Platelet Count 188 K/mm3 (150-450); RBC Distribution Width CV 15.5 % (11.6-14.6); RBC Distribution Width SD 55.7 fl (35.1-43.9); Red Blood Count 3.11 M/mm3 (4.6-6.2); White Blood Count 7.7 K/mm3 (4.4-11.0)
--- NOTE | 2022-09-29 07:36 | CPS ---
patient states he does not want the pulmicort
[2022-09-29] MEDS: predniSONE 20 MG Tablet 40 MG PO (08:49)
[2022-09-29] MEDS: Aspirin 81 MG TAB.CHEW PO (08:50)
[2022-09-29] MEDS: Metoprolol Tartrate 25 MG Tablet 12.5 MG PO ×2 (08:50→20:17)
[2022-09-29] MEDS: guaiFENesin 1,200 MG Tablet 1200 MG PO ×2 (08:50→20:17)
[2022-09-29] MEDS: Escitalopram Oxalate 10 MG Tablet 5 MG PO (08:50)
[2022-09-29] MEDS: Enoxaparin 40 MG/0.4 ML Syringe SC (08:51)
[2022-09-29 08:54] LABS: Anion Gap 5 (5-15); BUN 31 mg/dL (7-18); BUN/Creat Ratio 31.1 RATIO (10-20); Calcium,Total 8.8 mg/dL (8.5-10.1); Chloride 100 mmol/L (98-107); EST Glomerular Filtration Rate 78 mL/min (>60); Est Glom Filt Rate - Afr Amer 94 mL/min (>60); Estimated Creatinine Clearance 61.51 ml/min; Glucose 87 mg/dL (74-106); Potassium 3.9 mmol/L (3.5-5.1); Sodium Level 141 mmol/L (136-145)
--- NOTE | 2022-09-29 11:32 | CASEMGMT ---
Discharge Planning Updates sent to [facility] via [employer]. Keri Luna
[2022-09-29] MEDS: Gabapentin 300 MG Capsule PO ×2 (11:50→23:06)
--- NOTE | 2022-09-29 15:34 | PCM.HOSP.N ---
Hospitalist Note Gram-positive cocci in chains in his sputum and although growth is rare and is present and he still has wet cough and still has shortness of breath above baseline, will add Rocephin and await speciation
--- NOTE | 2022-09-29 15:50 | CASEMGMT ---
Social Work SW placed call to [facility] Medical Records and requested copy of advance directives. [place] signed by pt and faxed to [facility] for records. Message to [facility] and precert has not yet been obtained. SW to continue to follow. Plan: [facility], pending precert TOMMY Fairbanks
[2022-09-29] MEDS: Ceftriaxone 1 GM/50 ML BAG IV (16:43)
[2022-09-29] MEDS: 0.9% Saline Lock 10 ML Syringe IV (16:43)
[2022-09-29] MEDS: Acetaminophen 325 MG Tablet 650 MG PO ×2 (16:43→23:10)
[2022-09-29] MEDS: Atorvastatin Calcium 80 MG Tablet 40 MG PO (20:16)
[2022-09-29] MEDS: Sodium Chloride 0.65% 1 SPRAY SPRAY.BTL 2 SPRAY NASAL (20:18)
[2022-09-29] MEDS: MELATONIN 10 MG TABLET PO (23:06)
[2022-09-29] MEDS: LORazepam 0.5 MG Tablet 0.25 MG PO (23:06)
[2022-09-30] VITALS (16 sets, daily range): BP systolic 121–141; BP diastolic 52–69; PULSE 63–97; RESP 12–24; TEMP 36.6; O2SAT 94–98
[2022-09-30] MEDS: Albuterol 2.5 MG/3 ML VIAL.NEB. INHALATION (04:41)
[2022-09-30] MEDS: Ipratropium/Albuterol Sulfate 3 ML AMPUL.NEB INHALATION ×6 (04:56→23:17)
[2022-09-30 07:19] LABS: Absolute Lymphocyte Count 1.63 X10^3/uL (0.83-4.51); Absolute Neutrophil Count 4.3 X10^3/uL (2.0-7.7); Eosinophil# 0.09 X10^3/uL; Eosinophils% 1.4 % (0-5); Hematocrit 30.3 % (40-54); Hemoglobin 9.1 g/dL (13.0-16.5); Lymphocyte # 1.63 X10^3/ul (0.83-4.51); Lymphocyte % 24.9 % (19-41); Mean Corpuscular Hgb 29.7 pg (27.0-32.0); Mean Platelet Vol. 10.5 fl (6.2-12.0); Monocyte# 0.52 X10^3/uL; NRBC Flagged by Analyzer 0 % (0-5); Neutrophil # 4.29 X10^3/uL (2.7-7.7); Neutrophil % 65.5 % (47-70); Platelet Count 190 K/mm3 (150-450); RBC Distribution Width CV 15.1 % (11.6-14.6); RBC Distribution Width SD 54.6 fl (35.1-43.9); Red Blood Count 3.06 M/mm3 (4.6-6.2); White Blood Count 6.5 K/mm3 (4.4-11.0)
[2022-09-30 07:40] LABS: Anion Gap 0 (5-15); BUN 28 mg/dL (7-18); BUN/Creat Ratio 34.4 RATIO (10-20); Calcium,Total 8.3 mg/dL (8.5-10.1); Chloride 102 mmol/L (98-107); Creatinine, Serum 0.81 mg/dL (0.70-1.30); EST Glomerular Filtration Rate 99 mL/min (>60); Est Glom Filt Rate - Afr Amer 119 mL/min (>60); Estimated Creatinine Clearance 75.94 ml/min; Glucose 92 mg/dL (74-106); Potassium 3.7 mmol/L (3.5-5.1); Sodium Level 141 mmol/L (136-145)
[2022-09-30] MEDS: Budesonide Respules 0.5 MG/2 ML AMPUL.NEB. INHALATION ×2 (07:53→19:24)
[2022-09-30] MEDS: Aspirin 81 MG TAB.CHEW PO (07:56)
[2022-09-30] MEDS: Enoxaparin 40 MG/0.4 ML Syringe SC (07:58)
[2022-09-30] MEDS: Escitalopram Oxalate 10 MG Tablet 5 MG PO (07:58)
[2022-09-30] MEDS: guaiFENesin 1,200 MG Tablet 1200 MG PO ×2 (07:58→22:10)
[2022-09-30] MEDS: Metoprolol Tartrate 25 MG Tablet 12.5 MG PO ×2 (07:58→22:07)
[2022-09-30] MEDS: predniSONE 20 MG Tablet 60 MG PO (08:04)
[2022-09-30] MEDS: Ceftriaxone 1 GM/50 ML BAG IV (10:13)
[2022-09-30] MEDS: 0.9% Saline Lock 10 ML Syringe IV (10:13)
[2022-09-30] MEDS: Acetaminophen 325 MG Tablet 650 MG PO (10:21)
--- NOTE | 2022-09-30 10:53 | CASEMGMT ---
Addendum entered by Ria Simms 09/30/22 16:01: No return call from [facility]. SW placed call to [employer] and spoke with Mandi ([phone] #3) and discussed appeal and request for Peer to Peer. Mandi states that after reviewing information, it is discovered that pt case was not denied by voided. Case was voided because referral was started from [facility] but clinical information was never uploaded. Mandi recommends [facility] restarts precert at this time. Phone call to Admission coordinator at [facility] Sherrie ([phone]) and explained above. Sherrie agreeable to start a new precert. NICA sent updated clinicals via [employer] and requested this be done as soon as possible. Sherrie agreeable. TOMMY Fairbanks Original Note: Social Work SW notified by [employer] that pt was denied by insurance. Appeal can be called to [phone]. NICA called this number and automated option for an online appeal can be made. No peer to peer option. [facility] ([phone][facility] who states no other information has been provided for Peer to Peer and case has been closed by [employer]. NICA placed call to Courtney at [employer] [phone] option #3 and discussed case and requested Peer to Peer. Courtney states she sent an email to the correct department who will call this SW today to set up a Peer to Peer. Physician has been updated and agreeable to complete Peer to Peer. NICA will await return call from [facility]. Plan: Awaiting return call from [facility] for Peer to Peer for SNF placement TOMMY Fairbanks
--- NOTE | 2022-09-30 18:00 | PCM.PN.HOSP ---
Reason for Visit Reason for Visit: Diagnoses Atherosclerotic heart disease of [place] coronary artery without angina pectoris (09/24/22) Chronic obstructive pulmonary disease, unspecified (09/24/22) Weakness (09/24/22) Other malaise (09/24/22) Subjective Subjective Pt starting to improve from respiratory status but has some pain when coughing. Continue with breathing treatments Objective Data Objective Data Vital Signs: Vital Signs Temp Pulse Resp BP Pulse Ox O2 Del Method O2 Flow Rate 97.8 F 75 18 121/52 H 97 Nasal Cannula 3 09/30/22 14:56 09/30/22 15:37 09/30/22 15:37 09/30/22 14:56 09/30/22 14:56 09/30/22 14:56 09/30/22 14:56 FiO2 30 09/30/22 01:38 Oxygen Flow Rate (L/min) [ 95 AMBULATING with Oxygen #1] Oxygen Flow Rate (L/min) 3 Oxygen Delivery Method Nasal Cannula Weight: 77.2 kg Body Mass Index (BMI) 26.6 Intake & Output: Intake and Output for Last 24 Hours 09/28/22 09/29/22 09/30/22 23:59 23:59 23:59 Intake Total 650 / 650 57.00 / 57.00 290 / 290 Output Total 800 / 800 300 / 300 Balance -150 / -150 57.00 / 57.00 -10 / -10 Lab / Micro Data Result Diagrams: 09/30/22 06:50 09/30/22 06:50 Labs: Laboratory Results - last 24 hr 09/30/22 06:50: WBC 6.5, RBC 3.06 L, Hgb 9.1 L, Hct 30.3 L, MCV 99.0 H, MCH 29.7, MCHC 30.0 L, RDW Std Deviation 54.6 H, RDW Coeff of Jessica 15.1 H, Plt Count 190, MPV 10.5, Immature Gran % (Auto) 0.200, Neut % (Auto) 65.5, Lymph % (Auto) 24.9, [place] % (Auto) 8.0, Eos % (Auto) 1.4, Baso % (Auto) 0.0, Absolute Neuts (auto) 4.3, Absolute Lymphs (auto) 1.63, Nucleated RBC % 0 09/30/22 06:50: Sodium 141, Potassium 3.7, Chloride 102, Carbon Dioxide 39.0 H, Anion Gap 0 L, BUN 28 H, Creatinine 0.81, Estim Creat Clear Calc 75.94, Est GFR (MDRD) Af Amer 119, Est GFR (MDRD) Non-Af 99, BUN/Creatinine Ratio 34.4 H, Glucose 92, Calcium 8.3 L Micro: Microbiology 09/28/22 21:10 Sputum, Expectorated/Coughed Gram Stain - Final 09/25/22 13:35 Mucosa - Nasopharyngeal Respiratory Panel (PCR) - Final 09/25/22 13:20 Nasal Secretion SARS-CoV-2 Antigen (Rapid) - Final Physical Exam Narrative General: Alert, oriented, thin HEENT: Atraumatic, normocephalic Eyes: Anicteric, normal conjunctiva, extraocular movements grossly intact Neck: Supple Respiratory: Work of breathing is improved, somewhat diminished airflow bilaterally but do not appreciate any crackles today Cardiovascular: Regular rate GI: Soft, nontender, nondistended Extremities: Trace bilateral lower extremity pitting edema Musculoskeletal: Moving all extremities, 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, Neuro: No overt focal neurological deficits Skin: No rashes appreciated Psych: Cooperative Assessment & Plan Assessment/Plan (1) COPD (chronic obstructive pulmonary disease): (2) Debility: (3) Weakness: (4) CAD (coronary artery disease): PLAN: Plan #Weakness, failure to thrive -Presented same day after being discharged from [facility] where he was hospitalized for 3 to 5 days for COPD exacerbation -Was feeling short of breath even just sitting trying to talk with neighbor and feels like he cannot maintain his ADLs -PT/OT -Case management -Given generalized weakness and age and comorbidities will decrease atorvastatin to 40 mg -09/26: PT evaluated and recommended rehab/SNF/TCU, patient agreeable to SNF -09/27: Awaiting pre-CERT, continue PT -09/28: Continue working with physical therapy -09/29: Patient has additional difficulty due to his arm amputation and was discussing various ways to troubleshoot this problem, continue to work with physical therapy -09/30: Patient debilitated with several rapid readmissions and not safe for discharge home, physical therapy recommending placement, agree. Continue to work on placement, new pre-CERT has to be started #Increased shortness of breath and chronic hypoxic respiratory failure secondary to COPD -Chronically on 5 L O2 at baseline and uses DuoNebs at home -Does feel he has had some increased shortness of breath -Increase nebs to every 4 hours he reports this so he takes it at home, budesonide twice daily -BNP 38 -No previous chest x-ray and x-ray on admission with read still pending, given complaints we will repeat chest x-ray with PA and lateral to assess for any changes and will add Mucinex -Continue incentive spirometry -COVID-negative, respiratory panel pending -Low threshold to start steroids for any escalating symptoms but did not sound to be in exacerbation on presentation -09/26: COVID and respiratory panel negative, remains on nebs, Mucinex, budesonide. Was tried briefly on room air last night and had O2 sat of 79%, continues to have increased shortness of breath, very poor airflow and wheezes and has wet cough but is unable to produce sputum, continue flutter valve, I-S, will order chest physiotherapy and IV steroids as he has failed current measures. Medication scheduled to help him sleep so he is able to tolerate BiPAP -09/27: To switch to p.o. steroids tomorrow, is improving with addition of steroids, continue nebs -09/28: De-escalated to p.o. steroids, continue nebs, continue to encourage flutter valve incentive spirometry -09/29: Was able to produce sputum sample. Continue steroids and nebs, patient did have some crackles yesterday and x-ray appeared to have possible small left-sided pleural effusion and he responded well to Lasix. Echo 07/03/2021 based on note from Brandon demonstrates grade 1 left ventricular diastolic dysfunction EF around 40% with dilated RV with RV systolic function normal. Given he had borderline EF with a component of diastolic dysfunction and dilated RV will repeat echo to assess for worsening and eval if worsening heart failure could be component of slow recovery -09/30: Sputum culture with rare gram-positive cocci in chains, on Rocephin, did seem to improve on this, continue current management #History of coronary artery disease -Coreg changed to metoprolol due to low BP and possible bronchospasm, cont aspirin, statin #Anemia of unclear chronicity -Hemoglobin 10.2 on admission and this a.m. is 8.4 -No signs or symptoms of bleeding -All cell lines decreased -Continue to monitor -Can consider FOBT and further work-up if indicated -09/26: Hemoglobin stable today at 8.4, continue current medications -09/27: Hemoglobin stable #chronic HFpEF -Echo 07/03/2021 based on note from Brandon demonstrates grade 1 left ventricular diastolic dysfunction EF around 40% with dilated RV with RV systolic function normal -09/28: Does not appear to be peripherally overloaded at this time BNP on presentation 38.1 however he did have some crackles that responded to Lasix #DVT ppx: Lovenox subcu Love Maria MD Time spent in the patient's overall evaluation,decision-making process, review of diagnostic data, adjustment of management, discussion with other providers, nursing nursing and ancillary staff involved in patient's care documentation, 30 minutes Charges/Coding Visit Charges Inpatient E&M: 43548 Subs Hosp L2
[2022-09-30] MEDS: Atorvastatin Calcium 80 MG Tablet 40 MG PO (22:04)
[2022-09-30] MEDS: LORazepam 0.5 MG Tablet 0.25 MG PO (22:46)
[2022-09-30] MEDS: MELATONIN 10 MG TABLET PO (22:46)
[2022-09-30] MEDS: Gabapentin 300 MG Capsule PO (22:46)
[2022-10-01] VITALS (13 sets, daily range): BP systolic 122–139; BP diastolic 48–66; PULSE 67–93; RESP 12–20; TEMP 36.4–36.6; O2SAT 94–98
--- NOTE | 2022-10-01 05:28 | CPS ---
Bipap put on patient by RN
[2022-10-01] MEDS: Ipratropium/Albuterol Sulfate 3 ML AMPUL.NEB INHALATION ×5 (05:30→23:03)
[2022-10-01] MEDS: Budesonide Respules 0.5 MG/2 ML AMPUL.NEB. INHALATION ×3 (05:30→19:27)
[2022-10-01] MEDS: Gabapentin 300 MG Capsule PO ×2 (08:35→22:48)
[2022-10-01] MEDS: Acetaminophen 325 MG Tablet 650 MG PO ×2 (08:36→20:06)
[2022-10-01] MEDS: guaiFENesin 1,200 MG Tablet 1200 MG PO ×2 (08:36→22:48)
[2022-10-01] MEDS: predniSONE 20 MG Tablet 60 MG PO (08:36)
[2022-10-01] MEDS: Metoprolol Tartrate 25 MG Tablet 12.5 MG PO ×2 (08:36→22:49)
[2022-10-01] MEDS: Escitalopram Oxalate 10 MG Tablet 5 MG PO (08:36)
[2022-10-01] MEDS: Aspirin 81 MG TAB.CHEW PO (08:36)
[2022-10-01 08:49] LABS: Anion Gap 1 (5-15); BUN 22 mg/dL (7-18); BUN/Creat Ratio 24.2 RATIO (10-20); Calcium,Total 8.6 mg/dL (8.5-10.1); Chloride 101 mmol/L (98-107); Creatinine, Serum 0.91 mg/dL (0.70-1.30); EST Glomerular Filtration Rate 87 mL/min (>60); Est Glom Filt Rate - Afr Amer 105 mL/min (>60); Estimated Creatinine Clearance 67.59 ml/min; Glucose 87 mg/dL (74-106); Sodium Level 143 mmol/L (136-145)
[2022-10-01] MEDS: Ceftriaxone 1 GM/50 ML BAG IV (09:52)
[2022-10-01] MEDS: Enoxaparin 40 MG/0.4 ML Syringe SC (09:52)
[2022-10-01] MEDS: 0.9% Saline Lock 10 ML Syringe IV ×2 (09:52→14:56)
--- NOTE | 2022-10-01 11:18 | CASEMGMT ---
Addendum entered by Ria Simms 10/01/22 13:35: Phone call to Sherrie in admissions at [facility] to check on status of precert. VM left. TOMMY Fairbanks Original Note: Social Work Message sent to [facility] requesting status update of precert. SW will await return information. SW met with pt and updated on discharge process. Plan: [facility], pending TOMMY Phelan
--- NOTE | 2022-10-01 13:07 | PCM.PN.HOSP ---
Reason for Visit Reason for Visit: Diagnoses Atherosclerotic heart disease of [place] coronary artery without angina pectoris (09/24/22) Chronic obstructive pulmonary disease, unspecified (09/24/22) Weakness (09/24/22) Other malaise (09/24/22) Subjective Subjective Her words at times he will feel like he cannot catch his breath when laying flat but otherwise doing much better. Does still have cough Objective Data Objective Data Vital Signs: Vital Signs Temp Pulse Resp BP Pulse Ox O2 Del Method O2 Flow Rate 97.8 F 70 20 H 129/66 H 98 Nasal Cannula 5 10/01/22 08:28 10/01/22 08:36 10/01/22 08:28 10/01/22 08:28 10/01/22 08:28 10/01/22 08:28 10/01/22 08:28 FiO2 30 10/01/22 00:20 Oxygen Flow Rate (L/min) [ 95 AMBULATING with Oxygen #1] Oxygen Flow Rate (L/min) 5 Oxygen Delivery Method Nasal Cannula Weight: 77.2 kg Body Mass Index (BMI) 26.6 Intake & Output: Intake and Output for Last 24 Hours 09/29/22 09/30/22 10/01/22 23:59 23:59 23:59 Intake Total 57.00 / 57.00 290 / 790 755 / 755 Output Total 300 / 500 200 / 200 Balance 57.00 / 57.00 -10 / 290 555 / 555 Lab / Micro Data Result Diagrams: 09/30/22 06:50 10/01/22 07:42 Labs: Laboratory Results - last 24 hr 10/01/22 07:42: Sodium 143, Potassium 4.0, Chloride 101, Carbon Dioxide 41.0 H, Anion Gap 1 L, BUN 22 H, Creatinine 0.91, Estim Creat Clear Calc 67.59, Est GFR (MDRD) Af Amer 105, Est GFR (MDRD) Non-Af 87, BUN/Creatinine Ratio 24.2 H, Glucose 87, Calcium 8.6 Micro: Microbiology 09/28/22 21:10 Sputum, Expectorated/Coughed Gram Stain - Final 09/28/22 21:10 Sputum, Expectorated/Coughed Respiratory Culture - Preliminary Gram negative tato 09/25/22 13:35 Mucosa - Nasopharyngeal Respiratory Panel (PCR) - Final 09/25/22 13:20 Nasal Secretion SARS-CoV-2 Antigen (Rapid) - Final Physical Exam Narrative General: Alert, oriented, thin HEENT: Atraumatic, normocephalic Eyes: Anicteric, normal conjunctiva, extraocular movements grossly intact Neck: Supple Respiratory: Work of breathing is improved, somewhat diminished airflow bilaterally, no wheezes Cardiovascular: Regular rate GI: Soft, nontender, nondistended Extremities: Trace bilateral lower extremity pitting edema Musculoskeletal: Moving all extremities, 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, Neuro: No overt focal neurological deficits Skin: No rashes appreciated Psych: Cooperative Assessment & Plan Assessment/Plan (1) COPD (chronic obstructive pulmonary disease): (2) Debility: (3) Weakness: (4) CAD (coronary artery disease): PLAN: Plan #Weakness, failure to thrive -Presented same day after being discharged from [facility] where he was hospitalized for 3 to 5 days for COPD exacerbation -Was feeling short of breath even just sitting trying to talk with neighbor and feels like he cannot maintain his ADLs -PT/OT -Case management -Given generalized weakness and age and comorbidities will decrease atorvastatin to 40 mg -09/26: PT evaluated and recommended rehab/SNF/TCU, patient agreeable to SNF -09/27: Awaiting pre-CERT, continue PT -09/28: Continue working with physical therapy -09/29: Patient has additional difficulty due to his arm amputation and was discussing various ways to troubleshoot this problem, continue to work with physical therapy -09/30: Patient debilitated with several rapid readmissions and not safe for discharge home, physical therapy recommending placement, agree. Continue to work on placement, new pre-CERT has to be started -10/01: Pre-CERT pending #Increased shortness of breath and chronic hypoxic respiratory failure secondary to COPD-found to have gram-negative tato pneumonia -Chronically on 5 L O2 at baseline and uses DuoNebs at home -Does feel he has had some increased shortness of breath -Increase nebs to every 4 hours he reports this so he takes it at home, budesonide twice daily -BNP 38 -No previous chest x-ray and x-ray on admission with read still pending, given complaints we will repeat chest x-ray with PA and lateral to assess for any changes and will add Mucinex -Continue incentive spirometry -COVID-negative, respiratory panel pending -Low threshold to start steroids for any escalating symptoms but did not sound to be in exacerbation on presentation -09/26: COVID and respiratory panel negative, remains on nebs, Mucinex, budesonide. Was tried briefly on room air last night and had O2 sat of 79%, continues to have increased shortness of breath, very poor airflow and wheezes and has wet cough but is unable to produce sputum, continue flutter valve, I-S, will order chest physiotherapy and IV steroids as he has failed current measures. Medication scheduled to help him sleep so he is able to tolerate BiPAP -09/27: To switch to p.o. steroids tomorrow, is improving with addition of steroids, continue nebs -09/28: De-escalated to p.o. steroids, continue nebs, continue to encourage flutter valve incentive spirometry -09/29: Was able to produce sputum sample. Continue steroids and nebs, patient did have some crackles yesterday and x-ray appeared to have possible small left-sided pleural effusion and he responded well to Lasix. Echo 07/03/2021 based on note from [facility] demonstrates grade 1 left ventricular diastolic dysfunction EF around 40% with dilated RV with RV systolic function normal. Given he had borderline EF with a component of diastolic dysfunction and dilated RV will repeat echo to assess for worsening and eval if worsening heart failure could be component of slow recovery -09/30: Sputum culture with rare gram-positive cocci in chains, on Rocephin, did seem to improve on this, continue current management -10/01: Sputum culture now showing gram-negative rods, changed antibiotic to Zosyn, saturating well, pursuing placement at present #History of coronary artery disease -Coreg changed to metoprolol due to low BP and possible bronchospasm, cont aspirin, statin #Anemia of unclear chronicity -Hemoglobin 10.2 on admission and this a.m. is 8.4 -No signs or symptoms of bleeding -All cell lines decreased -Continue to monitor -Can consider FOBT and further work-up if indicated -09/26: Hemoglobin stable today at 8.4, continue current medications -09/27: Hemoglobin stable #chronic HFpEF -Echo 07/03/2021 based on note from [facility] demonstrates grade 1 left ventricular diastolic dysfunction EF around 40% with dilated RV with RV systolic function normal -09/28: Does not appear to be peripherally overloaded at this time BNP on presentation 38.1 however he did have some crackles that responded to Lasix -10/01: He will need daily weights at discharge and may need as needed Lasix moving forward for any signs/symptoms of fluid overload #DVT ppx: Lovenox subcu Love Maria MD Time spent in the patient's overall evaluation,decision-making process, review of diagnostic data, adjustment of management, discussion with other providers, nursing nursing and ancillary staff involved in patient's care documentation, 30 minutes Charges/Coding Visit Charges Inpatient E&M: 65785 Subs Hosp L2
[2022-10-01] MEDS: Furosemide 20 MG/2 ML VIAL IV (14:56)
--- NOTE | 2022-10-01 15:51 | CASEMGMT ---
Discharge Planning Spoke with hospital receptionist at [facility] regarding status of pre-cert. She was able to check [employer] and it is still pending. SW notified. Keri Luna DC Planning Asst.
[2022-10-01] MEDS: LORazepam 0.5 MG Tablet 0.25 MG PO (22:48)
[2022-10-01] MEDS: MELATONIN 10 MG TABLET PO (22:49)
[2022-10-01] MEDS: Atorvastatin Calcium 80 MG Tablet 40 MG PO (22:49)
[2022-10-02] VITALS (10 sets, daily range): BP systolic 131–141; BP diastolic 54–62; PULSE 60–76; RESP 12–24; TEMP 36.6–36.7; O2SAT 95–99; BMI 25.9
[2022-10-02] MEDS: Albuterol 2.5 MG/3 ML VIAL.NEB. INHALATION (05:13)
[2022-10-02] MEDS: Budesonide Respules 0.5 MG/2 ML AMPUL.NEB. INHALATION (06:50)
[2022-10-02] MEDS: Ipratropium/Albuterol Sulfate 3 ML AMPUL.NEB INHALATION ×3 (06:50→14:13)
[2022-10-02 07:10] LABS: Anion Gap 1 (5-15); BUN 24 mg/dL (7-18); BUN/Creat Ratio 24.4 RATIO (10-20); Chloride 100 mmol/L (98-107); Creatinine, Serum 0.98 mg/dL (0.70-1.30); EST Glomerular Filtration Rate 79 mL/min (>60); Est Glom Filt Rate - Afr Amer 96 mL/min (>60); Estimated Creatinine Clearance 62.77 ml/min; Glucose 104 mg/dL (74-106); Potassium 3.7 mmol/L (3.5-5.1); Sodium Level 141 mmol/L (136-145)
[2022-10-02] MEDS: guaiFENesin 1,200 MG Tablet 1200 MG PO (08:10)
[2022-10-02] MEDS: predniSONE 20 MG Tablet 60 MG PO (08:10)
[2022-10-02] MEDS: Metoprolol Tartrate 25 MG Tablet 12.5 MG PO (08:10)
[2022-10-02] MEDS: Aspirin 81 MG TAB.CHEW PO (08:10)
[2022-10-02] MEDS: Escitalopram Oxalate 10 MG Tablet 5 MG PO (08:11)
[2022-10-02] MEDS: Enoxaparin 40 MG/0.4 ML Syringe SC (08:11)
--- NOTE | 2022-10-02 10:46 | CASEMGMT ---
Discharge Planning Precert has been obtained by [facility]. SW notified. Keri Luna, Discharge Planning Asst.
[2022-10-02] MEDS: 0.9% Saline Lock 10 ML Syringe IV (10:50)
--- NOTE | 2022-10-02 12:15 | CASEMGMT ---
Social Work SW let pt know that he was approved by insurance to go to SNF today. SW also let physician know. Pt to be discharged to [facility] this afternoon once physician completes the discharge. Pt to [facility] skilled. JENNIFER Boggs
--- NOTE | 2022-10-02 12:32 | TREXTCAR_ITS ---
Diet Diet Order/Speech Therapy: 09/24/22 22:15 Diet: Regular - General Food consistency:: Regular Liquid Consistency:: Regular/Thin Is pt able to select menu?: Yes Routine Orders/Code Status Suppository Type: Dulcolax 10mg Suppository Frequency: Daily PRN O2 Liters per Minute: 5 O2 Frequency: Continuous Keep PO Greater than or Equal to (%): 90 Code Status: DNRCC-A Therapies Physical Therapy: Eval and Treat Occupational Therapy: Eval and Treat Problem/Diagnosis (1) COPD (chronic obstructive pulmonary disease): Status: Chronic Code(s): J44.9 - Chronic obstructive pulmonary disease, unspecified (2) Weakness: Status: Acute Code(s): R53.1 - Weakness (3) CAD (coronary artery disease): Status: Acute Code(s): I25.10 - Atherosclerotic heart disease of [place] coronary artery without angina pectoris Plan #Weakness, failure to thrive #Increased shortness of breath and chronic hypoxic respiratory failure secondary to COPD on 5 L home O2-found to have gram-negative tato pneumonia as well #History of coronary artery disease #Chronic anemia #chronic HFpEF 72-year-old male history of COPD on 5 L home O2, coronary artery disease, left arm amputation presented to [facility] 09/24/2022 due to increased weakness and shortness of breath. He had been admitted at [facility] for a COPD exacerbation and went home at 5 PM but after several hours was too weak and short of breath and came back to the ED. He was treated for COPD exacerbation with nebs and steroids and did begin to improve, was able to cough up sputum which did grow gram-negative rods, final sensitivity pending but patient doing much better and feel he can be discharged on oral Levaquin pending final sensitivities. Did have some crackles in the bases with history of chronic heart failure with preserved ejection fraction and had 2 dose of Lasix over his hospitalization which did improve each time. Do not feel he needs scheduled Lasix but will need daily weights and possibly as needed moving forward. Does still have cough but is saturating well on his home O2, has some chest pain when he has cough and has difficulty producing sputum, feel he will benefit from prolonged prednisone taper. On day of discharge he was feeling better though still weak and with cough, feel he does not need further inpatient admission and is stable to go to SNF for further rehab and management. Discharge instructions as followed: DISCHARGE INSTRUCTIONS PLEASE READ *Please take this with you to your next doctors appointment* -You will be discharged on a prednisone taper: -60 mg daily x3 days -50mg daily x3 days -40mg daily x3 days -30mg daily x3 days -20mg daily x3 days -10mg daily x3 days -Would recommend wearing BiPAP at bedtime and adjust nighttime medication for better tolerability -Would recommend continuing Trelegy Ellipta with duonebs every 4-6 hours and can spread out until able to tolerate as needed -Can consider resuming Seroquel at bedtime but would only do so if wearing BiPAP and given potential QTc interaction would begin this after you have completed your antibiotic course -Your Coreg has been discontinued and you have been changed to metoprolol tartrate 12.5 mg twice daily to try to decrease your risk of bronchospasm -Would resume lorazepam with caution due to age and respiratory status -You will be discharged on antibiotics to complete a course for pneumonia, you will be sent on Levaquin 750 mg to take for 6 more days -Please follow-up with your lung doctor upon discharge, if you do not already have a lung doctor would recommend being referred to on outpatient basis -Weigh yourself every day. A sudden weight gain can mean you are retaining fluid. Weigh yourself at the same time of day and in the same kind of clothes. Ideally, weigh yourself first thing in the morning after you empty your bladder, but before you eat breakfast. -Please call your physician if your weight goes up by more than 2 pounds in 1 day or 5 pounds in 1 week. This can be a sign that you are retaining more fluid than you should be. -Please call your primary care provider's office upon discharge to schedule a hospital follow up within 1 week. -For any concerning signs or symptoms please call 911 or proceed to the nearest emergency department Allergies/Procedures Done in Hospital Allergies No Known Allergies Allergy (Verified 09/24/22 20:37) Procedures: 2-D Echocardiogram Type of Care/Length of Stay Estimated LOS: More Than 30 Days Type of Care Needed: Skilled Rehab Potential: Fair Prognosis: Fair Additional Orders/Day of Discharge Day of Discharge: 10/02/22 Discharge Plan Admission Admit Date/Time: 09/24/22 22:14 Primary Reason for Your Visit: Shortness of breath Attending Provider: Love Maria Primary Care Provider: Care Physician,No Primary Consulting Providers: Dean Anaya Instructions Patient Instructions: Asthma and COPD Additional Instructions / Restrictions: DISCHARGE INSTRUCTIONS PLEASE READ *Please take this with you to your next doctors appointment* -You will be discharged on a prednisone taper: -60 mg daily x3 days -50mg daily x3 days -40mg daily x3 days -30mg daily x3 days -20mg daily x3 days -10mg daily x3 days -Would recommend wearing BiPAP at bedtime and adjust nighttime medication for better tolerability -Would recommend continuing Trelegy Ellipta with duonebs every 4-6 hours and can spread out until able to tolerate as needed -Can consider resuming Seroquel at bedtime but would only do so if wearing BiPAP and given potential QTc interaction would begin this after you have completed your antibiotic course -Your Coreg has been discontinued and you have been changed to metoprolol tartrate 12.5 mg twice daily to try to decrease your risk of bronchospasm -Would resume lorazepam with caution due to age and respiratory status, will defer this to the physician taking over your care -You will be discharged on antibiotics to complete a course for pneumonia, you will be sent on Levaquin 750 mg to take for 6 more days -Please follow-up with your lung doctor upon discharge, if you do not already have a lung doctor would recommend being referred to on outpatient basis -Weigh yourself every day. A sudden weight gain can mean you are retaining fluid. Weigh yourself at the same time of day and in the same kind of clothes. Ideally, weigh yourself first thing in the morning after you empty your bladder, but before you eat breakfast. -Please call your physician if your weight goes up by more than 2 pounds in 1 day or 5 pounds in 1 week. This can be a sign that you are retaining more fluid than you should be. -Please call your primary care provider's office upon discharge to schedule a hospital follow up within 1 week. -For any concerning signs or symptoms please call 911 or proceed to the nearest emergency department Discharge Orders/Prescriptions Prescriptions: New metoprolol tartrate 25 mg Tablet 12.5 mg PO BID 30 Days Qty: 30 0RF prednisone 20 mg tablet See Taper PO BREAKFAST Qty: 32 0RF Taper: Prednisone Taper 60 mg WITH BREAKFAST for 3 Days and 0 Hour 50 mg WITH BREAKFAST for 3 Days and 0 Hour 40 mg WITH BREAKFAST for 3 Days and 0 Hour 30 mg WITH BREAKFAST for 3 Days and 0 Hour 20 mg WITH BREAKFAST for 3 Days and 0 Hour 10 mg WITH BREAKFAST for 3 Days and 0 Hour levofloxacin 750 mg tablet 750 mg PO DAILY 6 Days Qty: 6 0RF Continued atorvastatin 80 mg Tablet 80 mg PO QHS gabapentin 300 mg Capsule 300 mg PO TID PRN (Reason: Pain) aspirin 81 mg Tablet,Chewable 81 mg PO DAILY lisinopril 5 mg Tablet 5 mg PO DAILY albuterol sulfate [Proventil HFA] 90 mcg/actuation Hfa Aerosol Inhaler 2 puff INHALATION Q4H PRN (Reason: Wheezing) escitalopram oxalate 5 mg Tablet 5 mg PO DAILY guaifenesin 600 mg Tablet Extended Release 12hr 1,200 mg PO Q12H PRN (Reason: Cold Symptoms) Trelegy Ellipta 100-62.5-25 mcg Blister With Device 1 inh INHALATION DAILY melatonin 3 mg Capsule 6 mg PO QHS PRN (Reason: Insomnia) Changed ipratropium-albuterol 0.5 mg-3 mg(2.5 mg base)/3 mL Solution For Nebulization 3 ml INHALATION Q6H 14 Days Qty: 0 0RF trazodone 100 mg Tablet 100 mg PO QHS PRN (Reason: insomnia) Qty: 30 0RF Held quetiapine [Seroquel] 25 mg Tablet 25 mg PO QHS Hold Instructions: Resume on 10/08/22. Can consider resuming Seroquel at bedtime but would only do so if wearing BiPAP Discontinued carvedilol 3.125 mg Tablet 3.125 mg PO BIDCM Rx Instructions: must administer with a meal/food lorazepam 0.5 mg Tablet 0.5 mg PO TID PRN (Reason: Anxiety) dextromethorphan-guaifenesin 60-1,200 mg Tablet Extended Release 12 Hr 1 tab PO Q12H PRN (Reason: Congestion) Referrals / Follow Up: Care Physician,No Primary [Primary Care Provider] - [facility] Doctor,Out of [Non-Staff] - Within 1 Week Disposition Disposition (needs filled in before D/C Order can be placed): Intermediate Facility
--- NOTE | 2022-10-02 12:38 | DS.PCM_ITS ---
Providers Date of Admission: 09/24/22 Date of Discharge: 10/02/22 Primary Care Physician: No Primary Care Phys Reason For Visit: FAILURE TO THRIVE Diagnosis Discharge Diagnosis (1) COPD (chronic obstructive pulmonary disease): Status: Chronic Code(s): J44.9 - Chronic obstructive pulmonary disease, unspecified (2) Weakness: Status: Acute Code(s): R53.1 - Weakness (3) CAD (coronary artery disease): Status: Acute Code(s): I25.10 - Atherosclerotic heart disease of [place] coronary artery without angina pectoris Plan #Weakness, failure to thrive #Increased shortness of breath and chronic hypoxic respiratory failure secondary to COPD on 5 L home O2-found to have gram-negative tato pneumonia as well #History of coronary artery disease #Chronic anemia #chronic HFpEF Medications at Discharge Home Medications albuterol sulfate 90 mcg/actuation aerosol inhaler (Proventil HFA) 2 puff inhalation Q4H PRN Wheezing 09/24/22 aspirin 81 mg chewable tablet 81 mg PO DAILY heart health 09/24/22 atorvastatin 80 mg tablet 80 mg PO QHS cholesterol 09/24/22 escitalopram oxalate 5 mg tablet 5 mg PO DAILY Check with primary doctor 09/24/22 fluticasone fur. 100 mcg-umeclid 62.5 mcg-vilant 25 mcg inhalat.powder (Trelegy Ellipta) 1 inh inhalation DAILY Check with primary doctor 09/24/22 gabapentin 300 mg capsule 300 mg PO TID PRN Pain 09/24/22 guaifenesin 600 mg tablet, extended release 12 hr 1,200 mg PO Q12H PRN Cold Symptoms 09/24/22 lisinopril 5 mg tablet 5 mg PO DAILY Check with primary doctor 09/24/22 melatonin 3 mg capsule 6 mg PO QHS PRN Insomnia 09/24/22 quetiapine 25 mg tablet (Seroquel) 25 mg PO QHS sleep 09/24/22 ipratropium 0.5 mg-albuterol 3 mg (2.5 mg base)/3 mL nebulization soln 3 ml inhalation Q6H 14 days #0 mL 09/30/22 trazodone 100 mg tablet 100 mg PO QHS PRN insomnia #30 tabs 09/30/22 levofloxacin 750 mg tablet 750 mg PO DAILY 6 days #6 tabs 06/08/23 metoprolol tartrate 25 mg tablet 12.5 mg PO BID 30 days #30 tabs 10/02/22 prednisone 20 mg tablet See Taper PO BREAKFAST #32 tabs 10/02/22 Hospital Course Procedures Transthoracic echo Summary of Care Provided Minutes Spent on Discharge: 40 Hospital Course: 72-year-old male history of COPD on 5 L home O2, coronary artery disease, left arm amputation presented to [facility] 09/24/2022 due to increased weakness and shortness of breath. He had been admitted at [facility] for a COPD exacerbation and went home at 5 PM but after several hours was too weak and short of breath and came back to the ED. He was treated for COPD e xacerbation with nebs and steroids and did begin to improve, was able to cough up sputum which did grow gram-negative rods, final sensitivity pending but patient doing much better and feel he can be discharged on oral Levaquin pending final sensitivities. Did have some crackles in the bases with history of chronic heart failure with preserved ejection fraction and had 2 dose of Lasix over his hospitalization which did improve each time. Do not feel he needs scheduled Lasix but will need daily weights and possibly as needed moving forward. Does still have cough but is saturating well on his home O2, has some chest pain when he has cough and has difficulty producing sputum, feel he will benefit from prolonged prednisone taper. On day of discharge he was feeling better though still weak and with cough, feel he does not need further inpatient admission and is stable to go to SNF for further rehab and management. Discharge instructions as followed: DISCHARGE INSTRUCTIONS PLEASE READ *Please take this with you to your next doctors appointment* -You will be discharged on a prednisone taper: -60 mg daily x3 days -50mg daily x3 days -40mg daily x3 days -30mg daily x3 days -20mg daily x3 days -10mg daily x3 days -Would recommend wearing BiPAP at bedtime and adjust nighttime medication for better tolerability -Would recommend continuing Trelegy Ellipta with duonebs every 4-6 hours and can spread out until able to tolerate as needed -Can consider resuming Seroquel at bedtime but would only do so if wearing BiPAP and given potential QTc interaction would begin this after you have completed your antibiotic course -Your Coreg has been discontinued and you have been changed to metoprolol tartrate 12.5 mg twice daily to try to decrease your risk of bronchospasm -Would resume lorazepam with caution due to age and respiratory status -You will be discharged on antibiotics to complete a course for pneumonia, you will be sent on Levaquin 750 mg to take for 6 more days -Please follow-up with your lung doctor upon discharge, if you do not already have a lung doctor would recommend being referred to on outpatient basis -Weigh yourself every day. A sudden weight gain can mean you are retaining fluid. Weigh yourself at the same time of day and in the same kind of clothes. Ideally, weigh yourself first thing in the morning after you empty your bladder, but before you eat breakfast. -Please call your physician if your weight goes up by more than 2 pounds in 1 day or 5 pounds in 1 week. This can be a sign that you are retaining more fluid than you should be. -Please call your primary care provider's office upon discharge to schedule a hospital follow up within 1 week. 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, Neuro: No overt focal neurological deficits Skin: No rashes appreciated Psych: Cooperative Weight / BMI Weight Weight: 75.3 kg Body Mass Index (BMI) 25.9 ABG / Lab / Microbiology Data Result Diagrams: 09/30/22 06:50 10/02/22 06:20 Laboratory: Laboratory Results - last 24 hr 10/02/22 06:20: Sodium 141, Potassium 3.7, Chloride 100, Carbon Dioxide 40.0 H, Anion Gap 1 L, BUN 24 H, Creatinine 0.98, Estim Creat Clear Calc 62.77, Est GFR (MDRD) Af Amer 96, Est GFR (MDRD) Non-Af 79, BUN/Creatinine Ratio 24.4 H, Glucose 104, Calcium 8.0 L Microbiology: Microbiology 10/02/22 11:30 Nasal Secretion SARS-CoV-2 Antigen (Rapid) - Final 09/28/22 21:10 Sputum, Expectorated/Coughed Gram Stain - Final 09/28/22 21:10 Sputum, Expectorated/Coughed Respiratory Culture - Preliminary Gram negative tato 09/25/22 13:35 Mucosa - Nasopharyngeal Respiratory Panel (PCR) - Final 09/25/22 13:20 Nasal Secretion SARS-CoV-2 Antigen (Rapid) - Final Meaningful Use Info Meaningful Use Diagnoses (Choose all that apply): None applicable Discharge Plan Admission Admit Date/Time: 09/24/22 22:14 Primary Reason for Your Visit: Shortness of breath Attending Provider: Love Maria Primary Care Provider: Care Physician,No Primary Consulting Providers: Dean Anaya Instructions Patient Instructions: Asthma and COPD Additional Instructions / Restrictions: DISCHARGE INSTRUCTIONS PLEASE READ *Please take this with you to your next doctors appointment* -You will be discharged on a prednisone taper: -60 mg daily x3 days -50mg daily x3 days -40mg daily x3 days -30mg daily x3 days -20mg daily x3 days -10mg daily x3 days -Would recommend wearing BiPAP at bedtime and adjust nighttime medication for better tolerability -Would recommend continuing Trelegy Ellipta with duonebs every 4-6 hours and can spread out until able to tolerate as needed -Can consider resuming Seroquel at bedtime but would only do so if wearing BiPAP and given potential QTc interaction would begin this after you have completed your antibiotic course -Your Coreg has been discontinued and you have been changed to metoprolol tartrate 12.5 mg twice daily to try to decrease your risk of bronchospasm -Would resume lorazepam with caution due to age and respiratory status, will defer this to the physician taking over your care -You will be discharged on antibiotics to complete a course for pneumonia, you will be sent on Levaquin 750 mg to take for 6 more days -Please follow-up with your lung doctor upon discharge, if you do not already have a lung doctor would recommend being referred to on outpatient basis -Weigh yourself every day. A sudden weight gain can mean you are retaining fluid. Weigh yourself at the same time of day and in the same kind of clothes. Ideally, weigh yourself first thing in the morning after you empty your bladder, but before you eat breakfast. -Please call your physician if your weight goes up by more than 2 pounds in 1 day or 5 pounds in 1 week. This can be a sign that you are retaining more fluid than you should be. -Please call your primary care provider's office upon discharge to schedule a hospital follow up within 1 week. -For any concerning signs or symptoms please call 911 or proceed to the nearest emergency department Discharge Orders/Prescriptions Prescriptions: New metoprolol tartrate 25 mg Tablet 12.5 mg PO BID 30 Days Qty: 30 0RF prednisone 20 mg tablet See Taper PO BREAKFAST Qty: 32 0RF Taper: Prednisone Taper 60 mg WITH BREAKFAST for 3 Days and 0 Hour 50 mg WITH BREAKFAST for 3 Days and 0 Hour 40 mg WITH BREAKFAST for 3 Days and 0 Hour 30 mg WITH BREAKFAST for 3 Days and 0 Hour 20 mg WITH BREAKFAST for 3 Days and 0 Hour 10 mg WITH BREAKFAST for 3 Days and 0 Hour levofloxacin 750 mg tablet 750 mg PO DAILY 6 Days Qty: 6 0RF Continued atorvastatin 80 mg Tablet 80 mg PO QHS gabapentin 300 mg Capsule 300 mg PO TID PRN (Reason: Pain) aspirin 81 mg Tablet,Chewable 81 mg PO DAILY lisinopril 5 mg Tablet 5 mg PO DAILY albuterol sulfate [Proventil HFA] 90 mcg/actuation Hfa Aerosol Inhaler 2 puff INHALATION Q4H PRN (Reason: Wheezing) escitalopram oxalate 5 mg Tablet 5 mg PO DAILY guaifenesin 600 mg Tablet Extended Release 12hr 1,200 mg PO Q12H PRN (Reason: Cold Symptoms) Trelegy Ellipta 100-62.5-25 mcg Blister With Device 1 inh INHALATION DAILY melatonin 3 mg Capsule 6 mg PO QHS PRN (Reason: Insomnia) Changed ipratropium-albuterol 0.5 mg-3 mg(2.5 mg base)/3 mL Solution For Nebulization 3 ml INHALATION Q6H 14 Days Qty: 0 0RF trazodone 100 mg Tablet 100 mg PO QHS PRN (Reason: insomnia) Qty: 30 0RF Held quetiapine [Seroquel] 25 mg Tablet 25 mg PO QHS Hold Instructions: Resume on 10/08/22. Can consider resuming Seroquel at bedt mikie but would only do so if wearing BiPAP Discontinued carvedilol 3.125 mg Tablet 3.125 mg PO BIDCM Rx Instructions: must administer with a meal/food lorazepam 0.5 mg Tablet 0.5 mg PO TID PRN (Reason: Anxiety) dextromethorphan-guaifenesin 60-1,200 mg Tablet Extended Release 12 Hr 1 tab PO Q12H PRN (Reason: Congestion) Referrals / Follow Up: Care Physician,No Primary [Primary Care Provider] - [facility] Doctor,Out of [Non-Staff] - Within 1 Week Disposition Disposition (needs filled in before D/C Order can be placed): [facility] Facility Charges/Coding Visit Charges Inpatient E&M: 37498 Disch Hosp >30min
--- NOTE | 2022-10-02 13:46 | CASEMGMT ---
Discharge Planning Transport set up for 4:30 w/[facility]. Discharge documents sent to [facility] with pickup time. SW notified. Keri Luna DC Planning Asst.
--- NOTE | 2022-10-02 13:50 | CASEMGMT ---
Social Work Transport is at 2:30pm, not 4:30pm. SW let pt know and pt's bedside RN know the time. SW also let pt's daughter Mary know time of pickup. Pt leaving today, 2:30pm, via [facility], for [facility], going there skilled. No further needs are anticipated. JENNIFER Badillo
[2022-10-02] MEDS: Gabapentin 300 MG Capsule PO (14:24)
[2022-10-02] MEDS: Acetaminophen 325 MG Tablet 650 MG PO (14:24)
== END 2022-10-02 16:46 | disposition skilled nursing facility (03) ==
LOC: ED 21:54 → MS3 22:11
PROVIDERS: Admitting Provider Hospitalist; Emergency Provider Emergency Medicine; Visit Provider Internal Medicine
DX: J15.6 Pneumonia due to other Gram-negative bacteria (principal); J44.0 Chronic obstructive pulmonary disease with (acute) lower respiratory infection; I11.0 Hypertensive heart disease with heart failure; I50.32 Chronic diastolic (congestive) heart failure; J96.11 Chronic respiratory failure with hypoxia; Z87.891 Personal history of nicotine dependence; Z79.82 Long term (current) use of aspirin; I25.10 Atherosclerotic heart disease of native coronary artery without angina pectoris; R62.7 Adult failure to thrive; Z79.51 Long term (current) use of inhaled steroids; Z79.899 Other long term (current) drug therapy; Z99.81 Dependence on supplemental oxygen; I25.2 Old myocardial infarction; D64.9 Anemia, unspecified
CPT/HCPCS: 36415; 71045; 71046; 80048; 80053; 83880; 84484; 85025; 87070; 87077; 87186; 87205; 87426; 87633; 93005; 93306; 94002; 94003; 94640; 94668; 94762; 96365; 96366; 96367; 96372; 96375; 96376; 97110; 97116; 97162; 97166; 97530; 97535; 99221; 99252; 99285; J7050; Q9957; A4216; C8929; G0378; G0463; J1940

== ENCOUNTER 2022-10-03 09:09 | Observation (INO) | payer MEDICARE, SELFPAY ==
[2022-10-03] VITALS (13 sets, daily range): BP systolic 115–164; BP diastolic 61–87; PULSE 71–97; RESP 16–20; TEMP 36.6–37.1; O2SAT 95–99; BMI 26.6
--- NOTE | 2022-10-03 09:36 | EKG12_ITS ---
Test Reason : SOB Blood Pressure : / mmHG Vent. Rate : 078 BPM Atrial Rate : 078 BPM P-R Int : 164 ms QRS Dur : 098 ms QT Int : 384 ms P-R-T Axes : 079 -12 098 degrees QTc Int : 437 ms Normal sinus rhythm Septal infarct , age undetermined Abnormal ECG Confirmed by KENDALL CHAHAL, ZAID ([id number]), editor greeting card HERLINDA MACEDO ([id number]) on 10/06/2022 1:35:03 PM Referred By: JANES Confirmed By:ZAID ARGUETA MD
--- NOTE | 2022-10-03 09:36 | RAD_ITS ---
STUDY: X-RAY CHEST REASON FOR EXAM: Male, 72 years old. Cough sob TECHNIQUE: Single AP portable view of the chest. COMPARISON: Comparison is made with prior study dated September 28, 2022. FINDINGS: EKG electrodes are seen. There is hyperinflation of the lungs consistent with chronic obstructive lung disease (COPD). Decreased bronchovascular markings in both upper lobes more prominent on the right side suggests of bolus formation. Stable increased markings at the lung bases suggestive of scarring. Normal size heart. Normal mediastinum and hugo. There is prominence of the pulmonary hilar arteries without peripheral pulmonary vascular congestion, suggesting pulmonary hypertension. Normal visualized aortic arch and descending thoracic aorta. There are diffuse degenerative changes of the visualized thoracic spine. There is degenerative osteoarthritis of the bilateral shoulders. There is no demonstrated abnormality of the visualized soft tissue structures of the upper abdomen. RAD/Chest 1 View (Portable) IMPRESSION: Hyperinflation and changes compatible with COPD. Bullous changes in the right upper lobe. Stable scarring at the lung bases. Prominence of the pulmonary arteries bilaterally. Electronically Signed: Vidal Cornejo MD at 10:20 EDT ,
--- NOTE | 2022-10-03 09:39 | EDS_ITS ---
HPI History of Present Illness Chief Complaint: Shortness of Breath Informant: patient and EMS Narrative Narrative: Patient was recently admitted for COPD and debility, he was discharged to rehab facility in [place] yesterday from this hospital, when he got there he needed a breathing treatment and they told him that they do not do breathing treatments. His daughter came and got him, took him home where he lives alone, he woke up this morning and he cannot breathe despite doing a breathing treatment so he was brought back here by EMS. He denies any new symptoms. PFSH PFSH Medical History Amputation of arm CAD (coronary artery disease) COPD (chronic obstructive pulmonary disease) Ex-smoker Home Medications albuterol sulfate 90 mcg/actuation aerosol inhaler (Proventil HFA) 2 puff inhalation Q4H PRN Wheezing 09/24/22 [History Last Taken 09/24/22] aspirin 81 mg chewable tablet 81 mg PO DAILY heart health 09/24/22 [History Last Taken 09/24/22] atorvastatin 80 mg tablet 80 mg PO QHS cholesterol 09/24/22 [History Last Taken 09/23/22] escitalopram oxalate 5 mg tablet 5 mg PO DAILY Check with primary doctor 09/24/22 [History Last Taken 09/24/22] fluticasone fur. 100 mcg-umeclid 62.5 mcg-vilant 25 mcg inhalat.powder (Trelegy Ellipta) 1 inh inhalation DAILY Check with primary doctor 09/24/22 [History Last Taken Unknown] gabapentin 300 mg capsule 300 mg PO TID PRN Pain 09/24/22 [History Last Taken Unknown] guaifenesin 600 mg tablet, extended release 12 hr 1,200 mg PO Q12H PRN Cold Symptoms 09/24/22 [History Last Taken 09/24/22] lisinopril 5 mg tablet 5 mg PO DAILY Check with primary doctor 09/24/22 [History Last Taken 09/24/22] melatonin 3 mg capsule 6 mg PO QHS PRN Insomnia 09/24/22 [History Last Taken Unknown] quetiapine 25 mg tablet (Seroquel) 25 mg PO QHS sleep 09/24/22 [History Last Taken 09/23/22] ipratropium 0.5 mg-albuterol 3 mg (2.5 mg base)/3 mL nebulization soln 3 ml inhalation Q6H 14 days #0 mL 09/30/22 [Rx Last Taken 10/03/22] trazodone 100 mg tablet 100 mg PO QHS PRN insomnia #30 tabs 09/30/22 [Rx Last Taken Unknown] levofloxacin 750 mg tablet 750 mg PO DAILY 6 days #6 tabs 10/02/22 [Rx Last Taken Unknown] metoprolol tartrate 25 mg tablet 12.5 mg PO BID 30 days #30 tabs 10/02/22 [Rx Last Taken Unknown] prednisone 20 mg tablet See Taper PO BREAKFAST #32 tabs 10/02/22 [Rx Last Taken Unknown] Allergy/AdvReac Type Severity Reaction Status Date / Time No Known Allergies Allergy Verified 09/24/22 20:37 Surgical History History of ankle surgery Social History Smoking Status: Former smoker ROS ROS ED Constitutional Constitutional ED: Denies chills or fever(s) Eyes Eyes: Denies change in vision or diplopia ENT ENT ED: Denies rhinorrhea or sore throat Cardiovascular Cardiovascular: Denies chest pain or palpitations Respiratory/Chest Respiratory/Chest: Reports chest tightness, cough, dyspnea and wheezing Gastrointestinal Gastrointestinal: Denies abdominal pain, diarrhea, nausea or vomiting Genitourinary Genitourinary ED: Denies dysuria or hematuria Musculoskeletal Musculoskeletal: Denies back pain or neck pain Integumentary Denies abscess or rash Neurologic Neurologic: Denies headache(s), paresthesias or weakness Psychiatric Psychiatric: Denies anxiety or suicidal thoughts EXAM Physical Exam Const Vital Signs: 10/03/22 09:10 10/03/22 09:12 10/03/22 09:12 Temperature 97.9 F 97.9 F Temperature Source Temporal Temporal Pulse Rate 90 85 Respiratory Rate 19 H 20 H Respiratory Effort Short of Breath Respiratory Depth Deep Respiratory Pattern Normal Blood Pressure 164/68 H 164/68 H Blood Pressure Mean 100 100 Pulse Ox 96 95 Oxygen Delivery Method Nasal Cannula Nasal Cannula Nasal Cannula Oxygen Flow Rate (L/min) 3 3 3 10/03/22 10:15 10/03/22 13:14 Temperature Temperature Source Pulse Rate 88 77 Respiratory Rate 18 17 Respiratory Effort Respiratory Depth Respiratory Pattern Tachypnea Blood Pressure 115/87 H Blood Pressure Mean 96 Pulse Ox 98 Oxygen Delivery Method Nasal Cannula Oxygen Flow Rate (L/min) 3 Positive well nourished and well developed Constitutional Narrative: Mild respiratory distress General Appearance ED: well developed HEENT Reports moist mucous membranes normocephalic and atraumatic Eyes PERRL and EOMs intact bilaterally Neck full ROM, no lymphadenopathy, supple and no JVD Resp Resp Narrative: Mild respiratory distress, expiratory wheezes throughout diminished throughout, no rales or rhonchi heard Cardio regular rate, regular rhythm and no murmurs Rate: Negative for tachycardic GI non-tender and non-distended Auscultation: normoactive bowel sounds Palpation: soft Back/Spine no CVA tenderness General Back: other FROM Extremity normal to inspection Extremity Narrative: Status post left upper arm amputation distal to the shoulder General Extremety ED: Yes edema; Negative for pulses abnormal or tenderness General Extremity: edema bilateral lower extremity Details: trace; Negative for pulses abnormal Neuro oriented x3, CN's II-XII intact bilaterally and no sensory deficits noted Sensorium / Orientation: awake and alert Motor Exam: strength 5/5 throughout Psych mental status grossly normal Skin no rashes or lesions noted and no wounds MDM MDM MDM Narrative Medical decision making narrative: Breathing treatments, 1 view chest x-ray showing COPD and no pneumonia acutely on my interpretation or change compared with the other films from before, and repeat labs were obtained. I reviewed records, he was discharged yesterday on prednisone taper starting at 60 mg daily for 3 days his last dose was yesterday so I gave him a dose of 60 mg here in addition to the above treatments. They did help quite a bit and he is currently doing well with regards to his vital signs and pulse ox, mid 90s on 3 L nasal cannula. Chest x-ray 1 view reviewed and on my interpretation shows no acute pneumonia/infiltrate, but does show chronic COPD changes, radiology in agreement. I got case management involved. It sounds like they do have the ability to provide breathing treatments at the senior care he went to, however at the time he needed them they happen to be out of the medication itself. The patient is refusing to go back there. With regards to getting into a new 1, his insurance requires precertification. For that reason, I am not able to get him to a new facility out of the ER and he will be admitted. History & Record Review Additional record(s) reviewed:: Prior inpatient record and Prior labs Lab Data Attestation: I reviewed the patient's lab results. Labs: Laboratory Results - last 24 hr 10/03/22 10/03/22 10/03/22 10:15 10:15 10:15 WBC 5.2 RBC 3.68 L Hgb 10.9 L Hct 35.4 L MCV 96.2 H MCH 29.6 MCHC 30.8 L RDW Std Deviation 51.9 H RDW Coeff of Jessica 14.8 H Plt Count 136 L MPV 11.0 Immature Gran % (Auto) 0.400 Neut % (Auto) 85.8 H Lymph % (Auto) 11.3 L Estill % (Auto) 2.3 Eos % (Auto) 0.2 Baso % (Auto) 0.0 Absolute Neuts (auto) 4.5 Absolute Lymphs (auto) 0.59 L Nucleated RBC % 0 Platelet Estimate ADEQUATE Plt Morphology Comment LARGE Polychromasia RARE Basophilic Stippling RARE Ovalocytes 1+ Sodium 141 Potassium 4.9 Chloride 98 Carbon Dioxide 43.0 H Anion Gap 0 L BUN 21 H Creatinine 0.96 Estim Creat Clear Calc 64.07 Est GFR (MDRD) Af Amer 98 Est GFR (MDRD) Non-Af 81 BUN/Creatinine Ratio 21.8 H Glucose 125 H Calcium 9.1 Troponin I High Sens 33 B-Natriuretic Peptide 112.5 H Radiography Diagnostic Testing: Clinical Impression(s) from Imaging Studies Chest X-Ray 10/03/22 09:36 IMPRESSION: Hyperinflation and changes compatible with COPD. Bullous changes in the right upper lobe. Stable scarring at the lung bases. Prominence of the pulmonary arteries bilaterally. Electronically Signed: Vidal Cornejo MD at 10:20 EDT , Rhythm Strip Rhythm Strip: Sinus Rhythm Rate: 80 Ectopy: None EKG Initial EKG: Attestation: I personally reviewed and interpreted this EKG as follows: Interpretation: Sinus Rhythm, No Acute Injury Pattern and Non-Specific ST Changes Prior EKG tracings: available for review Prior: Unchanged Management Discussion w/another healthcare provider: Hospitalist and powder worker tnt/Case management Discharge Plan Dx/Rx/DC Orders Clinical Impression: Debility, Acute exacerbation of chronic obstructive pulmonary disease (COPD) Disposition Disposition: Acute Care Hospital [facility] Discharge Date/Time: 10/03/22 15:58
[2022-10-03] MEDS: Albuterol 2.5 MG/3 ML VIAL.NEB. INHALATION ×2 (09:50)
[2022-10-03] MEDS: Ipratropium/Albuterol Sulfate 3 ML AMPUL.NEB INHALATION ×4 (09:50→23:51)
[2022-10-03] MEDS: predniSONE 20 MG Tablet 60 MG PO (09:56)
[2022-10-03 10:33] LABS: Absolute Lymphocyte Count 0.59 X10^3/uL (0.83-4.51); Absolute Neutrophil Count 4.5 X10^3/uL (2.0-7.7); Eosinophil# 0.01 X10^3/uL; Eosinophils% 0.2 % (0-5); Hematocrit 35.4 % (40-54); Hemoglobin 10.9 g/dL (13.0-16.5); Lymphocyte # 0.59 X10^3/ul (0.83-4.51); Lymphocyte % 11.3 % (19-41); Mean Corp Hgb Conc 30.8 g/dL (32-36); Mean Corpuscular Hgb 29.6 pg (27.0-32.0); Mean Corpuscular Volume 96.2 fL (80-94); Monocyte# 0.12 X10^3/uL; Monocyte% 2.3 % (0-10); NRBC Flagged by Analyzer 0 % (0-5); Neutrophil # 4.49 X10^3/uL (2.7-7.7); Neutrophil % 85.8 % (47-70); POSITIVE COUNT YES; POSITIVE DIFFERENTIAL YES; Platelet Count 136 K/mm3 (150-450); RBC Distribution Width CV 14.8 % (11.6-14.6); RBC Distribution Width SD 51.9 fl (35.1-43.9); Red Blood Count 3.68 M/mm3 (4.6-6.2); White Blood Count 5.2 K/mm3 (4.4-11.0)
[2022-10-03 10:52] LABS: Anion Gap 0 (5-15); BUN 21 mg/dL (7-18); BUN/Creat Ratio 21.8 RATIO (10-20); Calcium,Total 9.1 mg/dL (8.5-10.1); Chloride 98 mmol/L (98-107); Creatinine, Serum 0.96 mg/dL (0.70-1.30); EST Glomerular Filtration Rate 81 mL/min (>60); Est Glom Filt Rate - Afr Amer 98 mL/min (>60); Estimated Creatinine Clearance 64.07 ml/min; Glucose 125 mg/dL (74-106); Potassium 4.9 mmol/L (3.5-5.1); Sodium Level 141 mmol/L (136-145); Troponin-I HS 33 pg/mL (3.0-78.0)
[2022-10-03 11:00] LABS: Differential Indicated SCAN CRITERIA MET
[2022-10-03 11:01] LABS: Basophilic Stippling RARE; Platelet Estimate ADEQUATE (ADEQ); Platelet Morphology LARGE; Polychromasia RARE
[2022-10-03 11:02] LABS: Ovalocyte 1+
--- NOTE | 2022-10-03 14:37 | CM.ED ---
Social Work NICA introduced self and role to patient. Patient reports he got to the SNF and they do not do breathing treatments there and he went to an ED in [place] for a breathing treatment. Daughter picked him up from ED and then took him home. Pt reports he could not breathe in the morning and he returned to [facility]. SW called SNF, [facility], who reports patient signed out AMA and had called 911 from facility due to not getting his breathing treatment immediately. DON reports they give breathing treatments but were waiting for his prescription since he had arrived yesterday but pt did not want to wait and called 911. DON reports [facility] unwilling to take patient back. Pt will need a precert through his insurance for new SNF placement. SW called pt's daughter per patient request. Daughter, Shahnaz, expressed her concerns regarding whether patient will be able to return home or need more permanent care. Daughter also wondered if Medicaid may be an option. Daughter reports there was a SNF in [facility] that were on his list and she is interested in for patient. SW provided emotional support. Plan: Pt will need precert for new SNF placement. NICA to review SNF options daughter reported for referral. Kim Franco LITHOGRAPHIC PLATE MAKER, EMBEDDED SYSTEMS ENGINEER
--- NOTE | 2022-10-03 14:49 | HP.PCM.HOS_ITS ---
HPI - General General Date of Admission: 10/03/22 Date of Service: 10/03/22 Chief Complaint: SOB HPI Narrative LILIA SIBLEY, is a 72-year-old male history of COPD on 5 L home O2, coronary artery disease, left arm amputation presented to [facility] 10/03/2022 with increasing shortness of breath refractory to nebulizer treatments. He had recently been hospitalized from 09/24 to 10/02 with a COPD exacerbation and pneumonia and slowly improved, he was discharged to SNF 10/02 for further rehab due to weakness and frequent readmissions and failure to thrive. He was discharged on prednisone taper, nebs, antibiotics. He was at the SNF and reports he asked for breathing treatment as he was having increased difficulty breathing because he had not had 1 in 8 hours and he reports that he was told that he cannot get a breathing treatment as they were not giving them ever since [facility]. After this he called the squad and was taken to [facility] and given a breathing treatment which helped. His daughter made him there and took him home and this morning when he woke up he felt worse and like he could not breathe and breathing treatments were not helping so he presented to the ED. He was given steroids and a neb treatment and this combination did help. Hospitalist called for placement. Spoke with patient who reports that he felt worse this morning in regards to his breathing, denies fevers, still has wet cough but difficulty producing sputum. No other new/acute complaints. [facility] Medical History Amputation of arm CAD (coronary artery disease) COPD (chronic obstructive pulmonary disease) Ex-smoker Home Medications albuterol sulfate 90 mcg/actuation aerosol inhaler (Proventil HFA) 2 puff inhalation Q4H PRN Wheezing 09/24/22 [History Last Taken 09/24/22] aspirin 81 mg chewable tablet 81 mg PO DAILY heart health 09/24/22 [History Last Taken 09/24/22] atorvastatin 80 mg tablet 80 mg PO QHS cholesterol 09/24/22 [History Last Taken 09/23/22] escitalopram oxalate 5 mg tablet 5 mg PO DAILY Check with primary doctor 09/24/22 [History Last Taken 09/24/22] fluticasone fur. 100 mcg-umeclid 62.5 mcg-vilant 25 mcg inhalat.powder (Trelegy Ellipta) 1 inh inhalation DAILY Check with primary doctor 09/24/22 [History Last Taken Unknown] gabapentin 300 mg capsule 300 mg PO TID PRN Pain 09/24/22 [History Last Taken Unknown] guaifenesin 600 mg tablet, extended release 12 hr 1,200 mg PO Q12H PRN Cold Symptoms 09/24/22 [History Last Taken 09/24/22] lisinopril 5 mg tablet 5 mg PO DAILY Check with primary doctor 09/24/22 [History Last Taken 09/24/22] melatonin 3 mg capsule 6 mg PO QHS PRN Insomnia 09/24/22 [History Last Taken Unknown] quetiapine 25 mg tablet (Seroquel) 25 mg PO QHS sleep 09/24/22 [History Last Ta chris 09/23/22] ipratropium 0.5 mg-albuterol 3 mg (2.5 mg base)/3 mL nebulization soln 3 ml inhalation Q6H 14 days #0 mL 09/30/22 [Rx Last Taken 10/03/22] trazodone 100 mg tablet 100 mg PO QHS PRN insomnia #30 tabs 09/30/22 [Rx Last Taken Unknown] levofloxacin 750 mg tablet 750 mg PO DAILY 6 days #6 tabs 10/02/22 [Rx Last Taken Unknown] metoprolol tartrate 25 mg tablet 12.5 mg PO BID 30 days #30 tabs 10/02/22 [Rx Last Taken Unknown] prednisone 20 mg tablet See Taper PO BREAKFAST #32 tabs 10/02/22 [Rx Last Taken Unknown] Allergy/AdvReac Type Severity Reaction Status Date / Time No Known Allergies Allergy Verified 09/24/22 20:37 Surgical History (Updated 09/24/22 @ 22:39 by Partha Sweet) History of ankle surgery Social History Smoking Status: Former smoker ROS ROS Narrative General: Denies fever/chills HENT: Denies headache, denies stuffy nose, denies sore throat EYES: Chronic changes in vision Resp: Has cough but has difficulty producing sputum, does have shortness of breath Cardiac: Denies chest pain GI: Denies abdominal pain, denies changes in bowel, denies nausea/vomiting : Denies changes in urination Extremity: Denies swelling MSK: Generalized weakness Neuro: Denies any numbness/tingling Heme: Denies any bleeding or bruising Skin: Denies rashes Psychiatric: Expressed frustration over the past 24 hours but was very pleasant and cooperative on my exam Vital Signs Vital Signs Vital Signs: 10/03/22 09:10 10/03/22 09:12 10/03/22 09:12 Temperature 97.9 F 97.9 F Temperature Source Temporal Temporal Pulse Rate 90 85 Respiratory Rate 19 H 20 H Respiratory Effort Short of Breath Respiratory Depth Deep Respiratory Pattern Normal Blood Pressure 164/68 H 164/68 H Blood Pressure Mean 100 100 Pulse Ox 96 95 Oxygen Delivery Method Nasal Cannula Nasal Cannula Nasal Cannula Oxygen Flow Rate (L/min) 3 3 3 10/03/22 10:15 10/03/22 13:14 Temperature Temperature Source Pulse Rate 88 77 Respiratory Rate 18 17 Respiratory Effort Respiratory Depth Respiratory Pattern Tachypnea Blood Pressure 115/87 H Blood Pressure Mean 96 Pulse Ox 98 Oxygen Delivery Method Nasal Cannula Oxygen Flow Rate (L/min) 3 Weight Weight: 77 kg Body Mass Index (BMI) 26.6 Results Lab / Micro Data Result Diagrams: 10/03/22 10:15 10/03/22 10:15 Labs: Laboratory Results - last 24 hr 10/03/22 10:15: WBC 5.2, RBC 3.68 L, Hgb 10.9 L, Hct 35.4 L, MCV 96.2 H, MCH 29.6, MCHC 30.8 L, RDW Std Deviation 51.9 H, RDW Coeff of Jessica 14.8 H, Plt Count 136 L, MPV 11.0, Immature Gran % (Auto) 0.400, Neut % (Auto) 85.8 H, Lymph % (Auto) 11.3 L, [place] % (Auto) 2.3, Eos % (Auto) 0.2, Baso % (Auto) 0.0, Absolute Neuts (auto) 4.5, Absolute Lymphs (auto) 0.59 L, Nucleated RBC % 0, Platelet Estimate ADEQUATE, Plt Morphology Comment LARGE, Polychromasia RARE, Basophilic Stippling RARE, Ovalocytes 1+ 10/03/22 10:15: Sodium 141, Potassium 4.9, Chloride 98, Carbon Dioxide 43.0 H, Anion Gap 0 L, BUN 21 H, Creatinine 0.96, Estim Creat Clear Calc 64.07, Est GFR (MDRD) Af Amer 98, Est GFR (MDRD) Non-Af 81, BUN/Creatinine Ratio 21.8 H, Glucose 125 H, Calcium 9.1, Troponin I High Sens 33 Rhythm Strip Rhythm Strip: Sinus Rhythm Rate: 80 Ectopy: None Radiology Impression Chest X-Ray 10/03/22 09:36 IMPRESSION: Hyperinflation and changes compatible with COPD. Bullous changes in the right upper lobe. Stable scarring at the lung bases. Prominence of the pulmonary arteries bilaterally. Electronically Signed: Vidal Cornejo MD at 10:20 EDT , Assessment & Plan Assessment/Plan (1) COPD (chronic obstructive pulmonary disease): (2) Debility: (3) Weakness: (4) CAD (coronary artery disease): PLAN: Plan #Suspect acute exacerbation of chronic COPD with chronic hypoxic respiratory failure and pneumonia for which she is still on antibiotics -Multifactorial, did not receive his prednisone and suspect with his lungs, current pneumonia and need for long taper this likely caused exacerbation -Cannot rule out a component of fluid overload given increased in pulmonary markings on chest x-ray and does have hazy opacity in lower left lung that was not there on prior film -Had been discharged on Levaquin for 6 more days to complete a course for pneumonia with gram-negative tato growing in previous sputum culture, did not get dose today, will continue Levaquin to complete course -COVID yesterday negative but will repeat respiratory panel and sputum culture -We will obtain BNP and repeat cxr in AM, daily weights, I's and O's -Mucinex -Incentive spirometry, chest physiotherapy #Generalized weakness/failure to thrive -PT/OT and case management consults -Patient will need placement #History of coronary artery disease -Metoprolol, aspirin, statin #Chronic anemia -Stable #Chronic heart failure with preserved ejection fraction -Echo 07/03/2021 based on note from [place] demonstrates grade 1 left ventricular diastolic dysfunction EF around 40% with dilated RV with RV systolic function normal -Did have some increase in pulmonary markings on chest x-ray, will obtain BNP -Daily weights, I's and O's #DVT ppx: Lovenox subcu Love Maria, MD Time spent in the patient's overall evaluation,decision-making process, review of diagnostic data, adjustment of management, discussion with other providers, nursing nursing and ancillary staff involved in patient's care documentation, 60 minutes Charges/Coding Visit Charges Inpatient E&M: 21291 Init Hosp L2
[2022-10-03 16:08] LABS: BNP,B-Type NATRIURETIC PEPTIDE 112.5 pg/mL (0-100)
--- NOTE | 2022-10-03 16:22 | CASEMGMT ---
Addendum entered by Raisa Arrieta 10/04/22 16:56: Both [facility] and [facility] responded they can accept pt. SW to follow up Thursday with PT/OT to facilities. JENNIFER Badillo Original Note: Social Work SW met w/pt in room, he is agreeable to go to another [facility]. He states that [facility] didn't have oxygen tanks. (He also has said they didn't have his nebulizer treatments, see prior SW note). Pt would like to go wherever his daughter thinks would be a good choice. SW called daughter, spoke w/her about options. SW does have list for pt and daughter of halfway facilities in network w/insurance, in their preferred geographic area, complete with quality and resource use data. However, daughter states preference for places pt has been in the past: [facility] or [facility] in [facility]. She wasn't sure on the [facility], asked SW to check w/pt. SW checked w/pt, these are the two places pt has been. SW will make referrals on Thursday. SW will continue to follow. JENNIFER Badillo
[2022-10-03] MEDS: levoFLOXacin 750 MG Tablet PO (18:33)
[2022-10-03] MEDS: guaiFENesin 1,200 MG Tablet 1200 MG PO (20:55)
[2022-10-03] MEDS: MELATONIN 10 MG TABLET PO (20:55)
[2022-10-03] MEDS: Metoprolol Tartrate 25 MG Tablet 12.5 MG PO (20:56)
[2022-10-03] MEDS: Furosemide 20 MG/2 ML VIAL IV (22:02)
[2022-10-03] MEDS: 0.9% Saline Lock 10 ML Syringe IV ×2 (22:03→22:41)
[2022-10-03] MEDS: Atorvastatin Calcium 80 MG Tablet PO (22:08)
[2022-10-04] VITALS (13 sets, daily range): BP systolic 120–156; BP diastolic 40–65; PULSE 68–89; RESP 16–20; TEMP 36.5–36.8; O2SAT 94–99; BMI 33.1
--- NOTE | 2022-10-04 00:46 | CPS ---
Pt refuses PAP at this time
[2022-10-04] MEDS: Ipratropium/Albuterol Sulfate 3 ML AMPUL.NEB INHALATION ×6 (04:50→23:29)
--- NOTE | 2022-10-04 05:00 | RAD_ITS ---
STUDY: X-RAY CHEST REASON FOR EXAM: Male, 72 years old. worsened sob TECHNIQUE: Single AP portable view of the chest. COMPARISON: October 03, 2022 FINDINGS: Redemonstration of hyperinflation and moderate to significant cystic emphysematous changes of both lungs. Chronic interstitial fibrotic opacities are stable in the lung bases. No focal consolidation or new infiltrate is seen. No pneumothorax is present. There is borderline cardiomegaly. Normal mediastinum and hugo. Normal visualized pulmonary arteries. There is atherosclerotic calcification of the aortic arch with tortuosity. Stable osseous structures. Surgical screws of the left glenoid are stable. There is no demonstrated abnormality of the visualized soft tissue structures of the upper abdomen. RAD/Chest 1 View (Portable) IMPRESSION: 1. Redemonstration of hyperinflation and moderate to significant cystic emphysematous changes of both lungs. Chronic interstitial fibrotic opacities are stable in the lung bases. No focal consolidation or new infiltrate is seen. No pneumothorax is present. Electronically Signed: Kareem Regalado MD at 16:11 EDT ,
[2022-10-04] MEDS: levoFLOXacin 750 MG Tablet PO (06:59)
[2022-10-04] MEDS: 0.9% Saline Lock 10 ML Syringe IV ×2 (07:04→20:58)
--- NOTE | 2022-10-04 07:49 | PN.HOSP_ITS ---
Reason for Visit Reason for Visit: Diagnoses Atherosclerotic heart disease of [place] coronary artery without angina pectoris (10/03/22) Chronic obstructive pulmonary disease, unspecified (10/03/22) Weakness (10/03/22) Other malaise (10/03/22) Subjective Subjective Patient anxious about getting his nebulizers on time. Reports he is not feeling very well due to multiple emergencies on the floor overnight causing delay in any breathing treatments he requested. No other major complaints at this time Objective Data Objective Data Vital Signs: Vital Signs Temp Pulse Resp BP Pulse Ox O2 Del Method O2 Flow Rate 97.7 F L 71 18 156/57 H 98 Nasal Cannula 3 10/04/22 02:44 10/04/22 04:51 10/04/22 04:51 10/04/22 02:44 10/04/22 04:05 10/04/22 04:05 10/04/22 04:05 Oxygen Flow Rate (L/min) 3 Oxygen Delivery Method Nasal Cannula Weight: 95.9 kg Body Mass Index (BMI) 33.1 Intake & Output: Intake and Output for Last 24 Hours 10/02/22 10/03/22 10/04/22 23:59 23:59 23:59 Intake Total 200 / 200 Balance 200 / 200 Lab / Micro Data Result Diagrams: 10/03/22 10:15 10/03/22 10:15 Labs: Laboratory Results - last 24 hr 10/03/22 10:15: WBC 5.2, RBC 3.68 L, Hgb 10.9 L, Hct 35.4 L, MCV 96.2 H, MCH 29.6, MCHC 30.8 L, RDW Std Deviation 51.9 H, RDW Coeff of Jessica 14.8 H, Plt Count 136 L, MPV 11.0, Immature Gran % (Auto) 0.400, Neut % (Auto) 85.8 H, Lymph % (Auto) 11.3 L, [place] % (Auto) 2.3, Eos % (Auto) 0.2, Baso % (Auto) 0.0, Absolute Neuts (auto) 4.5, Absolute Lymphs (auto) 0.59 L, Nucleated RBC % 0, Platelet Estimate ADEQUATE, Plt Morphology Comment LARGE, Polychromasia RARE, Basophilic Stippling RARE, Ovalocytes 1+ 10/03/22 10:15: Sodium 141, Potassium 4.9, Chloride 98, Carbon Dioxide 43.0 H, Anion Gap 0 L, BUN 21 H, Creatinine 0.96, Estim Creat Clear Calc 64.07, Est GFR (MDRD) Af Amer 98, Est GFR (MDRD) Non-Af 81, BUN/Creatinine Ratio 21.8 H, Glucose 125 H, Calcium 9.1, Troponin I High Sens 33 10/03/22 10:15: B-Natriuretic Peptide 112.5 H Micro: Microbiology 10/03/22 15:10 Mucosa - Nose Respiratory Panel (PCR) - Final Radiography Diagnostic Testing: Radiology Impression Chest X-Ray 10/03/22 09:36 IMPRESSION: Hyperinflation and changes compatible with COPD. Bullous changes in the right upper lobe. Stable scarring at the lung bases. Prominence of the pulmonary arteries bilaterally. Electronically Signed: Vidal Cornejo MD at 10:20 EDT , Rhythm Strip Rhythm Strip: Sinus Rhythm Rate: 80 Ectopy: None Physical Exam Narrative General: Alert, oriented, thin HEENT: Atraumatic, normocephalic Eyes: Anicteric, normal conjunctiva, extraocular movements grossly intact Neck: Supple Respiratory: Work of breathing is improved, somewhat diminished airflow bilaterally, no wheezes Cardiovascular: Regular rate GI: Soft, nontender, nondistended Extremities: Trace bilateral lower extremity pitting edema Musculoskeletal: Moving all extremities, 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, Neuro: No overt focal neurological deficits Skin: No rashes appreciated Psych: Cooperative Assessment & Plan Assessment/Plan (1) COPD (chronic obstructive pulmonary disease): (2) Debility: (3) Weakness: (4) CAD (coronary artery disease): PLAN: Plan #Suspect acute exacerbation of chronic COPD with chronic hypoxic respiratory failure and pneumonia for which she is still on antibiotics -Multifactorial, did not receive his prednisone and suspect with his lungs, current pneumonia and need for long taper this likely caused exacerbation -Cannot rule out a component of fluid overload given increased in pulmonary markings on chest x-ray and does have hazy opacity in lower left lung that was not there on prior film -Had been discharged on Levaquin for 6 more days to complete a course for pneumonia with gram-negative tato growing in previous sputum culture, did not get dose today, will continue Levaquin to complete course -COVID yesterday negative but will repeat respiratory panel and sputum culture -We will obtain BNP and repeat cxr in AM, daily weights, I's and O's -Mucinex -Incentive spirometry, chest physiotherapy -10/04: O2 sat 99 to 100% on 3 L, is improving, continue nebs, steroids, Levaquin #Generalized weakness/failure to thrive -PT/OT and case management consults -Patient will need placement #History of coronary artery disease -Metoprolol, aspirin, statin #Chronic anemia -Stable #Chronic heart failure with preserved ejection fraction -Echo 07/03/2021 based on note from [place] demonstrates grade 1 left ventricular diastolic dysfunction EF around 40% with dilated RV with RV systolic function normal -Did have some increase in pulmonary markings on chest x-ray, will obtain BNP -Daily weights, I's and O's -10/04: BNP slightly elevated compared to previous, received 1 dose of Lasix, O2 sat improved #DVT ppx: Lovenox subcu Love Maria MD Time spent in the patient's overall evaluation,decision-making process, review of diagnostic data, adjustment of management, discussion with other providers, nursing nursing and ancillary staff involved in patient's care documentation, 30 minutes Charges/Coding Visit Charges Inpatient E&M: 23092 Subs Hosp L2
[2022-10-04] MEDS: Metoprolol Tartrate 25 MG Tablet 12.5 MG PO ×2 (09:10→20:57)
[2022-10-04] MEDS: Escitalopram Oxalate 10 MG Tablet 5 MG PO (09:11)
[2022-10-04] MEDS: Lisinopril 5 MG Tablet PO (09:12)
[2022-10-04] MEDS: Enoxaparin 40 MG/0.4 ML Syringe SC (09:12)
[2022-10-04] MEDS: guaiFENesin 1,200 MG Tablet 1200 MG PO ×2 (09:13→20:57)
[2022-10-04] MEDS: Aspirin 81 MG TAB.CHEW PO (09:13)
[2022-10-04 09:37] LABS: Absolute Neutrophil Count 5.1 X10^3/uL (2.0-7.7); Hematocrit 34.3 % (40-54); Hemoglobin 10.6 g/dL (13.0-16.5); Mean Corp Hgb Conc 30.9 g/dL (32-36); Mean Corpuscular Volume 97.2 fL (80-94); Monocyte# 0.19 X10^3/uL; Monocyte% 3.3 % (0-10); NRBC Flagged by Analyzer 0 % (0-5); Neutrophil # 5.14 X10^3/uL (2.7-7.7); Neutrophil % 89.4 % (47-70); POSITIVE DIFFERENTIAL YES; Platelet Count 228 K/mm3 (150-450); Red Blood Count 3.53 M/mm3 (4.6-6.2); White Blood Count 5.8 K/mm3 (4.4-11.0)
[2022-10-04 09:47] LABS: Differential Indicated SCAN CRITERIA MET
[2022-10-04 09:49] LABS: ALB/GLOB Ratio 0.9 RATIO (0.9-2.4); AST(SGOT) 18 U/L (15-37); Alanine Aminotransfer ALT/SGPT 36 U/L (16-61); Alkaline Phosphatase 65 U/L (45-117); Anion Gap 2 (5-15); BUN 26 mg/dL (7-18); Calcium,Total 8.7 mg/dL (8.5-10.1); Chloride 96 mmol/L (98-107); Creatinine, Serum 1.04 mg/dL (0.70-1.30); EST Glomerular Filtration Rate 74 mL/min (>60); Est Glom Filt Rate - Afr Amer 90 mL/min (>60); Estimated Creatinine Clearance 59.14 ml/min; Globulin 3.3 g/dL (2.2-4.2); Glucose 134 mg/dL (74-106); Magnesium 2.2 mg/dL (1.6-2.6); Potassium 4.4 mmol/L (3.5-5.1); Protein, Total 6.3 g/dL (6.4-8.2); Sodium Level 139 mmol/L (136-145)
[2022-10-04 10:07] LABS: Differential Comment SCANNED
--- NOTE | 2022-10-04 16:15 | CASEMGMT ---
CANDICE CM in to complete KRISH[place] form with patient. CANDICE WHIPPLE explained [place] form, patient voiced understanding. Patient signed [place] form and filed in chart. Patient provided with copy of signed [place] form. Patient had no further questions or concerns at this time.
--- NOTE | 2022-10-04 16:16 | CASEMGMT ---
Social Work SW sent initial referrals to [facility] and [facility]. Pt did not participate in therapy today however. SW spoke w/pt in room, confirmed the SNF choices. SW did give pt list of long-term facilities in network w/pt's insurance, in pt's preferred geographic area, complete with quality and resource use data in event pt wants to consider a different facility. SW also encouraged pt to participate in therapy so we can send the rest of the referral Thursday. SW explained the process of referral, acceptance and precert to pt. SW will follow up on Thursday. JENNIFER Badillo
[2022-10-04] MEDS: Acetaminophen 325 MG Tablet 650 MG PO (20:56)
[2022-10-04] MEDS: Atorvastatin Calcium 80 MG Tablet PO (20:58)
[2022-10-04] MEDS: traZODone 100 MG Tablet PO (20:58)
[2022-10-04] MEDS: MELATONIN 10 MG TABLET PO (20:59)
[2022-10-05] VITALS (14 sets, daily range): BP systolic 117–137; BP diastolic 49–87; PULSE 62–93; RESP 12–24; TEMP 36.4–36.7; O2SAT 95–99; BMI 33.0
[2022-10-05] MEDS: Ipratropium/Albuterol Sulfate 3 ML AMPUL.NEB INHALATION ×6 (02:57→22:40)
--- NOTE | 2022-10-05 03:13 | CPS ---
Patient refuses Bipap use
[2022-10-05] MEDS: levoFLOXacin 750 MG Tablet PO (05:04)
[2022-10-05 06:27] LABS: Absolute Lymphocyte Count 0.53 X10^3/uL (0.83-4.51); Absolute Neutrophil Count 4.6 X10^3/uL (2.0-7.7); Hematocrit 30.9 % (40-54); Hemoglobin 9.7 g/dL (13.0-16.5); Lymphocyte # 0.53 X10^3/ul (0.83-4.51); Lymphocyte % 9.6 % (19-41); Mean Corp Hgb Conc 31.4 g/dL (32-36); Mean Corpuscular Hgb 30.2 pg (27.0-32.0); Mean Corpuscular Volume 96.3 fL (80-94); Mean Platelet Vol. 9.7 fl (6.2-12.0); Monocyte# 0.35 X10^3/uL; Monocyte% 6.4 % (0-10); NRBC Flagged by Analyzer 0 % (0-5); Neutrophil % 83.6 % (47-70); POSITIVE DIFFERENTIAL YES; Platelet Count 207 K/mm3 (150-450); RBC Distribution Width CV 15.3 % (11.6-14.6); RBC Distribution Width SD 53.6 fl (35.1-43.9); Red Blood Count 3.21 M/mm3 (4.6-6.2); White Blood Count 5.5 K/mm3 (4.4-11.0)
[2022-10-05 06:43] LABS: Differential Indicated SCAN CRITERIA MET
[2022-10-05 06:49] LABS: Anisocytosis 1+; Macrocytosis 1+
[2022-10-05 06:51] LABS: AST(SGOT) 19 U/L (15-37); Alanine Aminotransfer ALT/SGPT 37 U/L (16-61); Albumin, Serum 2.6 g/dL (3.2-5.0); Alkaline Phosphatase 58 U/L (45-117); Anion Gap 1 (5-15); BUN 28 mg/dL (7-18); BUN/Creat Ratio 28.3 RATIO (10-20); Calcium,Total 8.4 mg/dL (8.5-10.1); Chloride 100 mmol/L (98-107); Creatinine, Serum 0.99 mg/dL (0.70-1.30); EST Glomerular Filtration Rate 79 mL/min (>60); Est Glom Filt Rate - Afr Amer 95 mL/min (>60); Estimated Creatinine Clearance 62.13 ml/min; Globulin 2.7 g/dL (2.2-4.2); Glucose 126 mg/dL (74-106); Potassium 4.4 mmol/L (3.5-5.1); Protein, Total 5.3 g/dL (6.4-8.2); Sodium Level 141 mmol/L (136-145)
--- NOTE | 2022-10-05 08:03 | PCM.PN.HOSP ---
Reason for Visit Reason for Visit: Diagnoses Atherosclerotic heart disease of [place] coronary artery without angina pectoris (10/03/22) Chronic obstructive pulmonary disease, unspecified (10/03/22) Weakness (10/03/22) Other malaise (10/03/22) Subjective Subjective Feeling down, reports he feels somewhat crummy this morning, oxygenating well, has not been wearing BiPAP nightly due to anxiety Objective Data Objective Data Vital Signs: Vital Signs Temp Pulse Resp BP Pulse Ox O2 Del Method O2 Flow Rate 98.1 F 70 20 H 118/49 L 96 Nasal Cannula 2 10/05/22 05:12 10/05/22 07:04 10/05/22 07:04 10/05/22 05:12 10/05/22 07:04 10/05/22 07:46 10/05/22 07:46 Oxygen Flow Rate (L/min) 2 Oxygen Delivery Method Nasal Cannula Weight: 95.7 kg Body Mass Index (BMI) 33.0 Intake & Output: Intake and Output for Last 24 Hours 10/03/22 10/04/22 10/05/22 23:59 23:59 23:59 Intake Total 200 / 200 720 / 720 Output Total 0 / 0 Balance 200 / 200 720 / 720 0 / 0 Lab / Micro Data Result Diagrams: 10/05/22 06:20 10/05/22 06:20 Labs: Laboratory Results - last 24 hr 10/04/22 09:20: WBC 5.8, RBC 3.53 L, Hgb 10.6 L, Hct 34.3 L, MCV 97.2 H, MCH 30.0, MCHC 30.9 L, RDW Std Deviation 53.0 H, RDW Coeff of Jessica 15.0 H, Plt Count 228, MPV 10.0, Immature Gran % (Auto) 0.300, Neut % (Auto) 89.4 H, Lymph % (Auto) 7.0 L, [place] % (Auto) 3.3, Eos % (Auto) 0.0, Baso % (Auto) 0.0, Absolute Neuts (auto) 5.1, Absolute Lymphs (auto) 0.40 L, Nucleated RBC % 0, Differential Comment SCANNED 10/04/22 09:20: Sodium 139, Potassium 4.4, Chloride 96 L, Carbon Dioxide 41.0 H, Anion Gap 2 L, BUN 26 H, Creatinine 1.04, Estim Creat Clear Calc 59.14, Est GFR (MDRD) Af Amer 90, Est GFR (MDRD) Non-Af 74, BUN/Creatinine Ratio 25.0 H, Glucose 134 H, Calcium 8.7, Magnesium 2.2, Total Bilirubin 0.50, AST 18, ALT 36, Alkaline Phosphatase 65, Total Protein 6.3 L, Albumin 3.0 L, Globulin 3.3, Albumin/Globulin Ratio 0.9 10/05/22 06:20: WBC 5.5, RBC 3.21 L, Hgb 9.7 L, Hct 30.9 L, MCV 96.3 H, MCH 30.2, MCHC 31.4 L, RDW Std Deviation 53.6 H, RDW Coeff of Jessica 15.3 H, Plt Count 207, MPV 9.7, Immature Gran % (Auto) 0.400, Neut % (Auto) 83.6 H, Lymph % (Auto) 9.6 L, [place] % (Auto) 6.4, Eos % (Auto) 0.0, Baso % (Auto) 0.0, Absolute Neuts (auto) 4.6, Absolute Lymphs (auto) 0.53 L, Nucleated RBC % 0, Anisocytosis 1+, Macrocytosis 1+ 10/05/22 06:20: Sodium 141, Potassium 4.4, Chloride 100, Carbon Dioxide 40.0 H, Anion Gap 1 L, BUN 28 H, Creatinine 0.99, Estim Creat Clear Calc 62.13, Est GFR (MDRD) Af Amer 95, Est GFR (MDRD) Non-Af 79, BUN/Creatinine Ratio 28.3 H, Glucose 126 H, Calcium 8.4 L, Total Bilirubin 0.50, AST 19, ALT 37, Alkaline Phosphatase 58, Total Protein 5.3 L, Albumin 2.6 L, Globulin 2.7, Albumin/Globulin Ratio 1.0 Micro: Microbiology 10/03/22 15:10 Mucosa - Nose Respiratory Panel (PCR) - Final Radiography Diagnostic Testing: Radiology Impression Chest X-Ray 10/04/22 05:00 IMPRESSION: 1. Redemonstration of hyperinflation and moderate to significant cystic emphysematous changes of both lungs. Chronic interstitial fibrotic opacities are stable in the lung bases. No focal consolidation or new infiltrate is seen. No pneumothorax is present. Electronically Signed: Kareem Regalado MD at 16:11 EDT Reading Location ID and State: [facility] / [place] , Service support , Rhythm Strip Rhythm Strip: Sinus Rhythm Rate: 80 Ectopy: None Physical Exam Narrative General: Alert, oriented, thin HEENT: Atraumatic, normocephalic Eyes: Anicteric, normal conjunctiva, extraocular movements grossly intact Neck: Supple Respiratory: Work of breathing is improved, somewhat diminished airflow bilaterally, transmitted upper airway sounds, no wheezes Cardiovascular: Regular rate GI: Soft, nontender, nondistended Extremities: No bilateral lower extremity pitting edema Musculoskeletal: Moving all extremities, 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, Neuro: No overt focal neurological deficits Skin: No rashes appreciated Psych: Cooperative Assessment & Plan Assessment/Plan (1) COPD (chronic obstructive pulmonary disease): (2) Debility: (3) Weakness: (4) CAD (coronary artery disease): PLAN: Plan #Acute exacerbation of chronic COPD with chronic hypoxic respiratory failure and pneumonia -Multifactorial, did not receive his prednisone and suspect with his lungs, current pneumonia and need for long taper this likely caused exacerbation -Cannot rule out a component of fluid overload given increased in pulmonary markings on chest x-ray and does have hazy opacity in lower left lung that was not there on prior film -Had been discharged on Levaquin for 6 more days to complete a course for pneumonia with gram-negative tato growing in previous sputum culture, did not get dose today, will continue Levaquin to complete course -COVID yesterday negative but will repeat respiratory panel and sputum culture -We will obtain BNP and repeat cxr in AM, daily weights, I's and O's -Mucinex -Incentive spirometry, chest physiotherapy -10/04: O2 sat 99 to 100% on 3 L, is improving, continue nebs, steroids, Levaquin -10/05: Patient transition back to oral prednisone taper and Levaquin continued. On nebs, awaiting placement. Patient does do well if he uses BiPAP at night however patient not agreeable, his home Seroquel has been held and trazodone is as needed due to concerns that oversedation at bedtime may lead to significant hypercapnia and have adverse outcome/clinical deterioration. ABG however after patient was reporting not feeling as well and demonstrated hypercapnia, patient agreeable 1 discussed related to BiPAP at this time, will add medication to help with anxiety associated with BiPAP. Additionally given patient's difficulty with adequate cough to clear secretions ordered CT to assess for any significant underlying pathology or mucous obstructing any areas however patient is saturating at this time #Hypercapnia -Likely acute on chronic secondary to his underlying lung disease -Continue to manage COPD exacerbation, will place BiPAP #Generalized weakness/failure to thrive -PT/OT and case management consults -Patient will need placement #History of coronary artery disease -Metoprolol, aspirin, statin #Chronic anemia -Stable #Chronic heart failure with preserved ejection fraction -Echo 07/03/2021 based on note from [place] demonstrates grade 1 left ventricular diastolic dysfunction EF around 40% with dilated RV with RV systolic function normal -Did have some increase in pulmonary markings on chest x-ray, will obtain BNP -Daily weights, I's and O's -10/04: BNP slightly elevated compared to previous, received 1 dose of Lasix, O2 sat improved -10/05: Given need for intermittent IV Lasix, will schedule 20 mg of Lasix daily and monitor daily weights and I's and O's as well as BMP #DVT ppx: Lovenox subcu Love Maria MD Time spent in the patient's overall evaluation,decision-making process, review of diagnostic data, adjustment of management, discussion with other providers, nursing nursing and ancillary staff involved in patient's care documentation, 30 minutes Charges/Coding Visit Charges Inpatient E&M: 94197 Subs Hosp L2
[2022-10-05] MEDS: predniSONE 20 MG Tablet 50 MG PO (09:21)
[2022-10-05] MEDS: Lisinopril 5 MG Tablet PO (09:21)
[2022-10-05] MEDS: Escitalopram Oxalate 10 MG Tablet 5 MG PO (09:21)
[2022-10-05] MEDS: Metoprolol Tartrate 25 MG Tablet 12.5 MG PO ×2 (09:21→21:24)
[2022-10-05] MEDS: Aspirin 81 MG TAB.CHEW PO (09:22)
[2022-10-05] MEDS: guaiFENesin 1,200 MG Tablet 1200 MG PO ×2 (09:22→21:26)
[2022-10-05] MEDS: Enoxaparin 40 MG/0.4 ML Syringe SC (09:22)
[2022-10-05] MEDS: Furosemide 20 MG Tablet PO (09:29)
--- NOTE | 2022-10-05 12:29 | CT_ITS ---
STUDY: CT Chest W/O Contrast Injection 10/05/2022 2:59 PM REASON FOR EXAM: Male, 72 years old. increased secretions Individualized dose optimization techniques were used for this CT. TECHNIQUE: Transaxial imaging was performed withoutIV contrast material. COMPARISON: xr 10.04.22. FINDINGS: There are degenerative changes of the shoulders. There is no pneumothorax. There is no demonstrated pleural abnormality. There are scattered blebs and bullae. This can be seen in pulmonary emphysema. 17 x 7mm spiculated nodule in the mid aspect of the right upper lobe. 2 screws in the left scapula. There are calcifications of the coronary arteries. Normal mediastinum. Normal hilar regions. Normal pulmonary arteries. There is atherosclerotic calcification of the aortic arch with tortuosity and elongation of the aortic arch and descending thoracic aorta. There are multi-level degenerative changes of the thoracic spine. There are no acute findings of the upper abdomen. CT/Chest without Contrast IMPRESSION: Right upper lobe nodule. For low-risk or high-risk patients consider a follow-up chest CT at 3 months. If unchanged consider an additional follow-up CT at 18-24 months. Alternatively (or additionally) PET/CT or tissue sampling could be performed. Electronically Signed: Keron Castelan MD at 15:14 EDT ,
[2022-10-05 14:01] LABS: Allen Test Positive; Base Excess 19 mmol/L (-2 to +2); Bicarbonate 43.9 mmol/L (22-26); Blood Gas Specimen Type ART; O2 Delivery Device Cannula; PO2 81 mmHG (75-100); SITE R Radial; SO2 95 % (95-99); Total Carbon Dioxide 46 mmol/L; pCO2 71.1 mmHg (35-45)
[2022-10-05] MEDS: LORazepam 0.5 MG Tablet 0.25 MG PO (14:38)
[2022-10-05] MEDS: MELATONIN 10 MG TABLET PO (21:26)
[2022-10-05] MEDS: Atorvastatin Calcium 80 MG Tablet PO (21:26)
[2022-10-05] MEDS: traZODone 100 MG Tablet PO (21:30)
[2022-10-05] MEDS: Polyethylene Glycol 3350 17 GM PACKET PO (21:30)
[2022-10-06] VITALS (15 sets, daily range): BP systolic 105–152; BP diastolic 47–91; PULSE 63–90; RESP 12–20; TEMP 36.6–36.8; O2SAT 93–98; BMI 31.3
[2022-10-06] MEDS: LORazepam 0.5 MG Tablet 0.25 MG PO ×2 (00:49→13:12)
[2022-10-06] MEDS: Ipratropium/Albuterol Sulfate 3 ML AMPUL.NEB INHALATION ×6 (02:50→22:31)
[2022-10-06] MEDS: levoFLOXacin 750 MG Tablet PO (06:00)
[2022-10-06] MEDS: 0.9% Saline Lock 10 ML Syringe IV (06:08)
[2022-10-06 06:36] LABS: Absolute Lymphocyte Count 1.06 X10^3/uL (0.83-4.51); Absolute Neutrophil Count 4.8 X10^3/uL (2.0-7.7); Basophil# 0.01 X10^3/uL; Basophil% 0.2 % (0-1); Hematocrit 31.5 % (40-54); Hemoglobin 9.6 g/dL (13.0-16.5); Lymphocyte # 1.06 X10^3/ul (0.83-4.51); Lymphocyte % 16.2 % (19-41); Mean Corp Hgb Conc 30.5 g/dL (32-36); Mean Corpuscular Hgb 29.7 pg (27.0-32.0); Mean Corpuscular Volume 97.5 fL (80-94); Monocyte# 0.66 X10^3/uL; Monocyte% 10.1 % (0-10); NRBC Flagged by Analyzer 0 % (0-5); Platelet Count 199 K/mm3 (150-450); RBC Distribution Width CV 15.4 % (11.6-14.6); RBC Distribution Width SD 55.4 fl (35.1-43.9); Red Blood Count 3.23 M/mm3 (4.6-6.2); White Blood Count 6.6 K/mm3 (4.4-11.0)
[2022-10-06 07:11] LABS: ALB/GLOB Ratio 0.9 RATIO (0.9-2.4); AST(SGOT) 28 U/L (15-37); Alanine Aminotransfer ALT/SGPT 45 U/L (16-61); Albumin, Serum 2.5 g/dL (3.2-5.0); Alkaline Phosphatase 61 U/L (45-117); Anion Gap 2 (5-15); BUN 34 mg/dL (7-18); BUN/Creat Ratio 37.4 RATIO (10-20); Calcium,Total 8.2 mg/dL (8.5-10.1); Chloride 101 mmol/L (98-107); Creatinine, Serum 0.91 mg/dL (0.70-1.30); EST Glomerular Filtration Rate 87 mL/min (>60); Est Glom Filt Rate - Afr Amer 105 mL/min (>60); Estimated Creatinine Clearance 67.59 ml/min; Globulin 2.7 g/dL (2.2-4.2); Glucose 96 mg/dL (74-106); Potassium 4.1 mmol/L (3.5-5.1); Protein, Total 5.2 g/dL (6.4-8.2); Sodium Level 140 mmol/L (136-145)
[2022-10-06] MEDS: Escitalopram Oxalate 10 MG Tablet 5 MG PO (08:19)
[2022-10-06] MEDS: guaiFENesin 1,200 MG Tablet 1200 MG PO ×2 (08:19→21:44)
[2022-10-06] MEDS: Enoxaparin 40 MG/0.4 ML Syringe SC (08:19)
[2022-10-06] MEDS: Lisinopril 5 MG Tablet PO (08:19)
[2022-10-06] MEDS: Polyethylene Glycol 3350 17 GM PACKET PO (08:19)
[2022-10-06] MEDS: Furosemide 20 MG Tablet PO (08:19)
[2022-10-06] MEDS: predniSONE 20 MG Tablet 50 MG PO (08:20)
[2022-10-06] MEDS: Aspirin 81 MG TAB.CHEW PO (08:20)
[2022-10-06] MEDS: Metoprolol Tartrate 25 MG Tablet 12.5 MG PO ×2 (08:29→21:44)
--- NOTE | 2022-10-06 08:57 | PN.HOSP_ITS ---
Reason for Visit Reason for Visit: Diagnoses Atherosclerotic heart disease of [place] coronary artery without angina pectoris (10/03/22) Chronic obstructive pulmonary disease, unspecified (10/03/22) Weakness (10/03/22) Other malaise (10/03/22) Subjective Subjective Breathing ok. Does not feel that he can go home. Objective Data Objective Data Vital Signs: Vital Signs Temp Pulse Resp BP Pulse Ox O2 Del Method O2 Flow Rate 36.8 C 74 18 126/47 H 93 Nasal Cannula 2 10/06/22 05:45 10/06/22 08:29 10/06/22 06:48 10/06/22 08:29 10/06/22 06:48 10/06/22 06:48 10/06/22 06:48 FiO2 30 10/05/22 22:55 Oxygen Flow Rate (L/min) 2 Oxygen Delivery Method Nasal Cannula Weight: 90.5 kg Body Mass Index (BMI) 31.3 Intake & Output: Intake and Output for Last 24 Hours 10/04/22 10/05/22 10/06/22 23:59 23:59 23:59 Intake Total 720 / 720 Output Total 0 / 0 Balance 720 / 720 0 / 0 Lab / Micro Data Result Diagrams: 10/06/22 06:20 10/06/22 06:20 Labs: Laboratory Results - last 24 hr 10/06/22 06:20: WBC 6.6, RBC 3.23 L, Hgb 9.6 L, Hct 31.5 L, MCV 97.5 H, MCH 29.7, MCHC 30.5 L, RDW Std Deviation 55.4 H, RDW Coeff of Jessica 15.4 H, Plt Count 199, MPV 10.0, Immature Gran % (Auto) 0.500, Neut % (Auto) 73.0 H, Lymph % (Auto) 16.2 L, Tillman % (Auto) 10.1 H, Eos % (Auto) 0.0, Baso % (Auto) 0.2, Absolute Neuts (auto) 4.8, Absolute Lymphs (auto) 1.06, Nucleated RBC % 0 10/06/22 06:20: Sodium 140, Potassium 4.1, Chloride 101, Carbon Dioxide 37.0 H, Anion Gap 2 L, BUN 34 H, Creatinine 0.91, Estim Creat Clear Calc 67.59, Est GFR (MDRD) Af Amer 105, Est GFR (MDRD) Non-Af 87, BUN/Creatinine Ratio 37.4 H, Glucose 96, Calcium 8.2 L, Total Bilirubin 0.40, AST 28, ALT 45, Alkaline Phosphatase 61, Total Protein 5.2 L, Albumin 2.5 L, Globulin 2.7, Albumin/Globulin Ratio 0.9 Micro: Microbiology 10/03/22 15:10 Mucosa - Nose Respiratory Panel (PCR) - Final ABG Data ABG results: ABG 10/05/22 13:57 Specimen Type ART Sample Site R Radial pH 7.40 Bicarbonate Actual 43.9 H Total CO2 46 Base Excess 19 H O2 Saturation 95 ABG pCO2 71.1 H* ABG pO2 81 Vini Test Positive O2 Delivery Device Cannula Liter Flow 2.0 Crit Call To/Read Back Yes Blood Gas Notified Whom samuel Radiography Diagnostic Testing: Radiology Impression Chest CT 10/05/22 12:29 IMPRESSION: Right upper lobe nodule. For low-risk or high-risk patients consider a follow-up chest CT at 3 months. If unchanged consider an additional follow-up CT at 18-24 months. Alternatively (or additionally) PET/CT or tissue sampling could be performed. Electronically Signed: Keron Castelan MD at 15:14 EDT , Rhythm Strip Rhythm Strip: Sinus Rhythm Rate: 80 Ectopy: None Physical Exam Const alert and no apparent distress HEENT head/scalp atraumatic and moist oral mucous membranes Resp normal respiratory effort, no retractions, no use of accessory muscles and clear to auscultation bilaterally Cardio regular rate, regular rhythm, S1 normal heart sound and S2 normal heart sound GI normal to inspection, nondistended, normoactive bowel sounds, soft to palpation, non-tender and non-distended Assessment & Plan Assessment/Plan (1) COPD (chronic obstructive pulmonary disease): PLAN: Acute exacerbation of chronic COPD with chronic hypoxic respiratory failure and pneumonia CT 10/05: shows severe emphysematous changes. Resp panel negative COVID 19 negative SCx 09/28: Pseudomonas On Prednisone taper On Levofloxacin through the (2) Debility: PLAN: Pt refused therapy eval on 10/04 and . He did see therapy today and ambulated 3'. Will require SNF upon discharge (3) Lung nodule: PLAN: noted on CT follow up CT in 3 months (4) Chronic hypercapnic respiratory failure: PLAN: 2/2 COPD On ABG, pt's pCO2 was 71.1 Patient requires volume ventilation and all other alternative therapies, including bilevel, have been considered and ruled out due to the severity of the disease state, weak breathing muscles and potential life-threatening condition including CO2 retention probability of acute exacerbation, patient requires ventilation to be used during the day as needed, addition to every night usage with facemask. Complicating this is compliance PLAN: Plan Chronic complicating conditions: * History of coronary artery disease-Metoprolol, aspirin, statin * Chronic anemia-Stable * Chronic heart failure with preserved ejection fraction-Echo 07/03/2021 based on note from [facility] demonstrates grade 1 left ventricular diastolic dysfunction EF around 40% with dilated RV with RV systolic function normal-Did have some increase in pulmonary markings on chest x-ray, will obtain BNP-Daily weights, I's and O's-10/04: BNP slightly elevated compared to previous, received 1 dose of Lasix, O2 sat improved-10/05: Given need for intermittent IV Lasix, will schedule 20 mg of Lasix daily and monitor daily weights and I's and O's as well as BMP DVT ppx: Lovenox subcu Charges/Coding Visit Charges Inpatient E&M: 45594 Subs Hosp L2
--- NOTE | 2022-10-06 13:55 | CASEMGMT ---
Addendum entered by Ria Simms 10/06/22 15:39: Social Work SW received message from [facility] that they are not in network with pt insurance. SW spoke with Kirsten at [facility] and they have beds available. SW sent updated clinicals to [facility]. Will await determination on acceptance. Pt will need precert prior to discharge. Plan: [facility], pending acceptance and precert [facility] Original Note: Social Work Pt known to this SW from previous visit last week. Pt agreeable to meet with SW. Pt has had multiple failed discharges home from the hospital over the last two weeks. Pt was at [facility] and returned home for 24 hours and was then readmitted to [facility]. Pt then returned home and was home for 2 hours and came to [facility]. Pt discharged to [facility] and was unhappy with care. Pt states his daughter picked him up and took him home. Pt stayed at home alone overnight and then called 911 the following morning as he could not care for himself and is readmitted to [facility] at this time. Referrals have been made to [facility] and [facility]. Both facilities state they can accept pt. NICA met with pt and discussed discharge plan. Pt preferred provider is [facility] as he has been here in the past and felt he got good care. Updated clinicals sent to [facility] with request to start precert. Plan: [facility], pending precert [facility]
[2022-10-06] MEDS: Atorvastatin Calcium 80 MG Tablet PO (21:44)
[2022-10-06] MEDS: MELATONIN 10 MG TABLET PO (21:44)
[2022-10-06] MEDS: Acetaminophen 325 MG Tablet 650 MG PO (21:48)
[2022-10-06] MEDS: traZODone 100 MG Tablet PO (21:48)
[2022-10-07] VITALS (15 sets, daily range): BP systolic 105–151; BP diastolic 48–107; PULSE 63–88; RESP 12–22; TEMP 36.4–36.8; O2SAT 94–98; BMI 31.3
[2022-10-07] MEDS: LORazepam 0.5 MG Tablet 0.25 MG PO ×2 (01:39→22:37)
[2022-10-07] MEDS: Ipratropium/Albuterol Sulfate 3 ML AMPUL.NEB INHALATION ×4 (06:09→19:08)
[2022-10-07] MEDS: levoFLOXacin 750 MG Tablet PO (06:36)
[2022-10-07 07:09] LABS: Absolute Lymphocyte Count 1.05 X10^3/uL (0.83-4.51); Absolute Neutrophil Count 5.5 X10^3/uL (2.0-7.7); Eosinophil# 0.01 X10^3/uL; Eosinophils% 0.1 % (0-5); Hematocrit 30.3 % (40-54); Hemoglobin 9.6 g/dL (13.0-16.5); Lymphocyte # 1.05 X10^3/ul (0.83-4.51); Lymphocyte % 14.5 % (19-41); Mean Corp Hgb Conc 31.7 g/dL (32-36); Mean Corpuscular Volume 94.7 fL (80-94); Monocyte# 0.67 X10^3/uL; Monocyte% 9.3 % (0-10); NRBC Flagged by Analyzer 0 % (0-5); Neutrophil # 5.49 X10^3/uL (2.7-7.7); Neutrophil % 75.8 % (47-70); Platelet Count 188 K/mm3 (150-450); RBC Distribution Width CV 15.4 % (11.6-14.6); White Blood Count 7.2 K/mm3 (4.4-11.0)
--- NOTE | 2022-10-07 07:43 | PCM.PN.HOSP ---
Reason for Visit Reason for Visit: Diagnoses Atherosclerotic heart disease of [place] coronary artery without angina pectoris (10/03/22) Chronic obstructive pulmonary disease, unspecified (10/03/22) Chronic respiratory failure with hypercapnia (10/03/22) Weakness (10/03/22) Other malaise (10/03/22) Solitary pulmonary nodule (10/03/22) Subjective Subjective Breathing better. Worked with therapy yesterday, but only able to manage 3 feet. Objective Data Objective Data Vital Signs: Vital Signs Temp Pulse Resp BP Pulse Ox O2 Del Method O2 Flow Rate 36.8 C 65 18 115/54 L 96 Bi-pap 2 10/07/22 01:35 10/07/22 06:09 10/07/22 06:09 10/07/22 01:35 10/07/22 01:42 10/07/22 01:42 10/07/22 01:35 FiO2 30 10/06/22 23:44 Oxygen Flow Rate (L/min) 2 Oxygen Delivery Method Bi-pap Weight: 90.5 kg Body Mass Index (BMI) 31.3 Intake & Output: Intake and Output for Last 24 Hours 10/05/22 10/06/22 10/07/22 23:59 23:59 23:59 Intake Total 355 / 355 Output Total 0 / 0 75 / 75 Balance 0 / 0 280 / 280 Lab / Micro Data Result Diagrams: 10/07/22 06:35 10/07/22 06:35 Labs: Laboratory Results - last 24 hr 10/07/22 06:35: WBC 7.2, RBC 3.20 L, Hgb 9.6 L, Hct 30.3 L, MCV 94.7 H, MCH 30.0, MCHC 31.7 L, RDW Std Deviation 54.0 H, RDW Coeff of Jessica 15.4 H, Plt Count 188, MPV 10.0, Immature Gran % (Auto) 0.300, Neut % (Auto) 75.8 H, Lymph % (Auto) 14.5 L, [place] % (Auto) 9.3, Eos % (Auto) 0.1, Baso % (Auto) 0.0, Absolute Neuts (auto) 5.5, Absolute Lymphs (auto) 1.05, Nucleated RBC % 0 Micro: Microbiology 10/03/22 15:10 Mucosa - Nose Respiratory Panel (PCR) - Final Rhythm Strip Rhythm Strip: Sinus Rhythm Rate: 80 Ectopy: None Physical Exam Const alert and no apparent distress Resp normal respiratory effort, no retractions, no use of accessory muscles and clear to auscultation bilaterally Cardio regular rate, regular rhythm, S1 normal heart sound and S2 normal heart sound GI normal to inspection, nondistended, normoactive bowel sounds, soft to palpation, non-tender and non-distended Extremity normal to inspection Assessment & Plan Assessment/Plan (1) COPD (chronic obstructive pulmonary disease): PLAN: Acute exacerbation of chronic COPD with chronic hypoxic respiratory failure and pneumonia CT 10/05: shows severe emphysematous changes. Resp panel negative COVID 19 negative SCx 09/28: Pseudomonas On Prednisone taper On Levofloxacin through the (2) Debility: PLAN: Pt refused therapy eval on 10/04 and . He did see therapy today and ambulated 3'. Will require SNF upon discharge (3) Lung nodule: PLAN: noted on CT follow up CT in 3 months (4) Chronic hypercapnic respiratory failure: PLAN: 2/2 COPD On ABG, pt's pCO2 was 71.1 Patient requires volume ventilation and all other alternative therapies, including bilevel, have been considered and ruled out due to the severity of the disease state, weak breathing muscles and potential life-threatening condition including CO2 retention probability of acute exacerbation, patient requires ventilation to be used during the day as needed, addition to every night usage with facemask. Complicating this is compliance PLAN: Plan Chronic complicating conditions: History of coronary artery disease-Metoprolol, aspirin, statin Chronic anemia-Stable Chronic heart failure with preserved ejection fraction-Echo 07/03/2021 based on note from [facility] demonstrates grade 1 left ventricular diastolic dysfunction EF around 40% with dilated RV with RV systolic function normal-Did have some increase in pulmonary markings on chest x-ray, will obtain BNP-Daily weights, I's and O's-10/04: BNP slightly elevated compared to previous, received 1 dose of Lasix, O2 sat improved-10/05: Given need for intermittent IV Lasix, will schedule 20 mg of Lasix daily and monitor daily weights and I's and O's as well as BMP DVT ppx: Lovenox subcu Disposition: to SNF pending insurance approval. Charges/Coding Visit Charges Inpatient E&M: 38724 Subs Hosp L2
[2022-10-07 07:53] LABS: AST(SGOT) 23 U/L (15-37); Alanine Aminotransfer ALT/SGPT 49 U/L (16-61); Albumin, Serum 2.5 g/dL (3.2-5.0); Alkaline Phosphatase 64 U/L (45-117); Anion Gap 2 (5-15); BUN 35 mg/dL (7-18); BUN/Creat Ratio 37.8 RATIO (10-20); Chloride 101 mmol/L (98-107); Creatinine, Serum 0.92 mg/dL (0.70-1.30); EST Glomerular Filtration Rate 85 mL/min (>60); Est Glom Filt Rate - Afr Amer 103 mL/min (>60); Estimated Creatinine Clearance 66.86 ml/min; Globulin 2.6 g/dL (2.2-4.2); Glucose 95 mg/dL (74-106); Potassium 4.1 mmol/L (3.5-5.1); Protein, Total 5.1 g/dL (6.4-8.2); Sodium Level 141 mmol/L (136-145)
[2022-10-07] MEDS: guaiFENesin 1,200 MG Tablet 1200 MG PO ×2 (08:52→20:32)
[2022-10-07] MEDS: predniSONE 20 MG Tablet 50 MG PO (08:52)
[2022-10-07] MEDS: Escitalopram Oxalate 10 MG Tablet 5 MG PO (08:52)
[2022-10-07] MEDS: Aspirin 81 MG TAB.CHEW PO (08:53)
[2022-10-07] MEDS: Enoxaparin 40 MG/0.4 ML Syringe SC (08:53)
[2022-10-07] MEDS: Metoprolol Tartrate 25 MG Tablet 12.5 MG PO ×2 (08:53→20:32)
[2022-10-07] MEDS: Lisinopril 5 MG Tablet PO (08:53)
[2022-10-07] MEDS: Furosemide 20 MG Tablet PO (08:54)
--- NOTE | 2022-10-07 08:55 | CASEMGMT ---
Discharge Planning Follow up with [facility] regarding pre-cert. Awaiting response. Keri Luna, Discharge Planning Asst.
--- NOTE | 2022-10-07 10:28 | CASEMGMT ---
Social Work Per [facility], precert to be started at this time. SW met with pt and updated that [facility] not able to accept pt but [facility] and will start precert. Pt agreeable to dc plan. Plan: [facility], pending precert [facility]
[2022-10-07] MEDS: Acetaminophen 325 MG Tablet 650 MG PO (14:13)
[2022-10-07] MEDS: Atorvastatin Calcium 80 MG Tablet PO (20:32)
[2022-10-07] MEDS: MELATONIN 10 MG TABLET PO (22:37)
[2022-10-07] MEDS: traZODone 100 MG Tablet PO (22:37)
[2022-10-07] MEDS: Albuterol 2.5 MG/3 ML VIAL.NEB. INHALATION (23:09)
[2022-10-08] VITALS (9 sets, daily range): BP systolic 112–122; BP diastolic 47–52; PULSE 61–77; RESP 12–22; TEMP 36.6; O2SAT 95–98; BMI 31.3
[2022-10-08] MEDS: Ipratropium/Albuterol Sulfate 3 ML AMPUL.NEB INHALATION ×3 (03:43→11:18)
[2022-10-08] MEDS: guaiFENesin 1,200 MG Tablet 1200 MG PO (07:34)
[2022-10-08] MEDS: Metoprolol Tartrate 25 MG Tablet 12.5 MG PO (07:34)
[2022-10-08] MEDS: Escitalopram Oxalate 10 MG Tablet 5 MG PO (07:35)
[2022-10-08] MEDS: predniSONE 20 MG Tablet 50 MG PO (07:36)
[2022-10-08] MEDS: Enoxaparin 40 MG/0.4 ML Syringe SC (07:36)
[2022-10-08] MEDS: Furosemide 20 MG Tablet PO (07:36)
[2022-10-08] MEDS: Lisinopril 5 MG Tablet PO (07:37)
[2022-10-08] MEDS: Aspirin 81 MG TAB.CHEW PO (07:37)
--- NOTE | 2022-10-08 07:43 | PCM.PN.HOSP ---
Reason for Visit Reason for Visit: Diagnoses Atherosclerotic heart disease of [place] coronary artery without angina pectoris (10/03/22) Chronic obstructive pulmonary disease, unspecified (10/03/22) Chronic respiratory failure with hypercapnia (10/03/22) Weakness (10/03/22) Other malaise (10/03/22) Solitary pulmonary nodule (10/03/22) Subjective Subjective Feels well. No events overnight. Objective Data Objective Data Vital Signs: Vital Signs Temp Pulse Resp BP Pulse Ox O2 Del Method O2 Flow Rate 36.6 C 63 19 H 112/47 L 97 Nasal Cannula 2 10/08/22 07:41 10/08/22 07:41 10/08/22 07:41 10/08/22 07:41 10/08/22 07:41 10/08/22 07:41 10/08/22 07:41 FiO2 30 10/08/22 02:25 Oxygen Flow Rate (L/min) 2 Oxygen Delivery Method Nasal Cannula Weight: 90.5 kg Body Mass Index (BMI) 31.3 Intake & Output: Intake and Output for Last 24 Hours 10/06/22 10/07/22 10/08/22 23:59 23:59 23:59 Intake Total 355 / 355 Output Total 75 / 75 Balance 280 / 280 Lab / Micro Data Result Diagrams: 10/08/22 07:22 10/08/22 07:22 Labs: Laboratory Results - last 24 hr 10/07/22 06:35: Sodium 141, Potassium 4.1, Chloride 101, Carbon Dioxide 38.0 H, Anion Gap 2 L, BUN 35 H, Creatinine 0.92, Estim Creat Clear Calc 66.86, Est GFR (MDRD) Af Amer 103, Est GFR (MDRD) Non-Af 85, BUN/Creatinine Ratio 37.8 H, Glucose 95, Calcium 8.0 L, Total Bilirubin 0.40, AST 23, ALT 49, Alkaline Phosphatase 64, Total Protein 5.1 L, Albumin 2.5 L, Globulin 2.6, Albumin/Globulin Ratio 1.0 Micro: Microbiology 10/06/22 11:35 Sputum, Expectorated/Coughed Gram Stain - Final 10/03/22 15:10 Mucosa - Nose Respiratory Panel (PCR) - Final Rhythm Strip Rhythm Strip: Sinus Rhythm Rate: 80 Ectopy: None Physical Exam Const alert and no apparent distress Constitutional Narrative: Up in chair. Eating breakfast. HEENT head/scalp atraumatic and moist oral mucous membranes Resp normal respiratory effort, no retractions, no use of accessory muscles and clear to auscultation bilaterally Cardio regular rate, regular rhythm, S1 normal heart sound and S2 normal heart sound GI GI Narrative: Left upper extremity stump within normal limits. Assessment & Plan Assessment/Plan (1) COPD (chronic obstructive pulmonary disease): PLAN: Acute exacerbation of chronic COPD with chronic hypoxic respiratory failure and pneumonia CT 10/05: shows severe emphysematous changes. Resp panel negative COVID 19 negative SCx 09/28: Pseudomonas On Prednisone taper On Levofloxacin through the (2) Debility: PLAN: Pt refused therapy eval on 10/04 and . He did see therapy today and ambulated 3'. Will require SNF upon discharge (3) Lung nodule: PLAN: noted on CT follow up CT in 3 months (4) Chronic hypercapnic respiratory failure: PLAN: 2/2 COPD On ABG, pt's pCO2 was 71.1 Patient requires volume ventilation and all other alternative therapies, including bilevel, have been considered and ruled out due to the severity of the disease state, weak breathing muscles and potential life-threatening condition including CO2 retention probability of acute exacerbation, patient requires ventilation to be used during the day as needed, addition to every night usage with facemask. Complicating this is compliance PLAN: Plan Chronic complicating conditions: History of coronary artery disease-Metoprolol, aspirin, statin Chronic anemia-Stable Chronic heart failure with preserved ejection fraction-Echo 07/03/2021 based on note from [facility] demonstrates grade 1 left ventricular diastolic dysfunction EF around 40% with dilated RV with RV systolic function normal-Did have some increase in pulmonary markings on chest x-ray, will obtain BNP-Daily weights, I's and O's-10/04: BNP slightly elevated compared to previous, received 1 dose of Lasix, O2 sat improved-10/05: Given need for intermittent IV Lasix, will schedule 20 mg of Lasix daily and monitor daily weights and I's and O's as well as BMP DVT ppx: Lovenox subcu Disposition: to [facility] today
[2022-10-08 08:00] LABS: Absolute Lymphocyte Count 1.05 X10^3/uL (0.83-4.51); Eosinophil# 0.03 X10^3/uL; Eosinophils% 0.4 % (0-5); Hematocrit 31.2 % (40-54); Hemoglobin 9.8 g/dL (13.0-16.5); Lymphocyte # 1.05 X10^3/ul (0.83-4.51); Lymphocyte % 13.7 % (19-41); Mean Corp Hgb Conc 31.4 g/dL (32-36); Mean Corpuscular Hgb 30.3 pg (27.0-32.0); Mean Corpuscular Volume 96.6 fL (80-94); Mean Platelet Vol. 10.2 fl (6.2-12.0); Monocyte# 0.57 X10^3/uL; Monocyte% 7.4 % (0-10); NRBC Flagged by Analyzer 0 % (0-5); Neutrophil # 6.02 X10^3/uL (2.7-7.7); Neutrophil % 78.2 % (47-70); Platelet Count 201 K/mm3 (150-450); RBC Distribution Width CV 15.2 % (11.6-14.6); RBC Distribution Width SD 53.9 fl (35.1-43.9); Red Blood Count 3.23 M/mm3 (4.6-6.2); White Blood Count 7.7 K/mm3 (4.4-11.0)
[2022-10-08 08:26] LABS: ALB/GLOB Ratio 0.9 RATIO (0.9-2.4); AST(SGOT) 25 U/L (15-37); Alanine Aminotransfer ALT/SGPT 53 U/L (16-61); Albumin, Serum 2.5 g/dL (3.2-5.0); Alkaline Phosphatase 71 U/L (45-117); Anion Gap 2 (5-15); BUN 30 mg/dL (7-18); BUN/Creat Ratio 32.4 RATIO (10-20); Calcium,Total 8.3 mg/dL (8.5-10.1); Chloride 101 mmol/L (98-107); Creatinine, Serum 0.93 mg/dL (0.70-1.30); EST Glomerular Filtration Rate 85 mL/min (>60); Est Glom Filt Rate - Afr Amer 103 mL/min (>60); Estimated Creatinine Clearance 66.14 ml/min; Globulin 2.9 g/dL (2.2-4.2); Glucose 91 mg/dL (74-106); Potassium 3.8 mmol/L (3.5-5.1); Protein, Total 5.4 g/dL (6.4-8.2); Sodium Level 140 mmol/L (136-145)
--- NOTE | 2022-10-08 09:43 | PCM.TXEXTCAR ---
Diet Diet Order/Speech Therapy: 10/03/22 15:36 Diet: Cardiac - Heart Healthy Food consistency:: Regular Liquid Consistency:: Regular/Thin Therapies Weight Bearing: Full weight bearing Physical Therapy: Eval and Treat Occupational Therapy: Eval and Treat Problem/Diagnosis (1) COPD (chronic obstructive pulmonary disease): Status: Chronic Code(s): J44.9 - Chronic obstructive pulmonary disease, unspecified Plan: Acute exacerbation of chronic COPD with chronic hypoxic respiratory failure and pneumonia CT 10/05: shows severe emphysematous changes. Resp panel negative COVID 19 negative SCx 09/28: Pseudomonas On Prednisone taper On Levofloxacin through the (2) Debility: Status: Acute Code(s): R53.81 - Other malaise Plan: Pt refused therapy eval on 10/04 and . He did see therapy today and ambulated 3'. Will require SNF upon discharge (3) Lung nodule: Status: Acute Code(s): R91.1 - Solitary pulmonary nodule Plan: noted on CT follow up CT in 3 months (4) Chronic hypercapnic respiratory failure: Status: Chronic Code(s): J96.12 - Chronic respiratory failure with hypercapnia Plan: 2/2 COPD On ABG, pt's pCO2 was 71.1 Patient requires volume ventilation and all other alternative therapies, including bilevel, have been considered and ruled out due to the severity of the disease state, weak breathing muscles and potential life-threatening condition including CO2 retention probability of acute exacerbation, patient requires ventilation to be used during the day as needed, addition to every night usage with facemask. Complicating this is compliance Plan Chronic complicating conditions: History of coronary artery disease-Metoprolol, aspirin, statin Chronic anemia-Stable Chronic heart failure with preserved ejection fraction-Echo 07/03/2021 based on note from [facility] demonstrates grade 1 left ventricular diastolic dysfunction EF around 40% with dilated RV with RV systolic function normal-Did have some increase in pulmonary markings on chest x-ray, will obtain BNP-Daily weights, I's and O's-10/04: BNP slightly elevated compared to previous, received 1 dose of Lasix, O2 sat improved-10/05: Given need for intermittent IV Lasix, will schedule 20 mg of Lasix daily and monitor daily weights and I's and O's as well as BMP DVT ppx: Lovenox subcu Disposition: to [facility] Allergies/Procedures Done in Hospital Allergies No Known Allergies Allergy (Verified 09/24/22 20:37) Procedures: None Type of Care/Length of Stay Estimated LOS: Convalescent Care Less Than 30 days Type of Care Needed: Skilled Rehab Potential: Good Prognosis: Fair Additional Orders/Day of Discharge Day of Discharge: 10/08/22 Discharge Plan Admission Admit Date/Time: 10/03/22 14:30 Primary Reason for Your Visit: COPD exacerbation Attending Provider: Mane Singh Primary Care Provider: Care Physician,No Primary Consulting Providers: Love Maria Instructions Additional Instructions / Restrictions: - He had a spot in your lung seen on your image of your chest, this can have repeat imaging on an outpatient basis Discharge Orders/Prescriptions Prescriptions: New acetaminophen 325 mg Tablet 650 mg PO Q6H PRN PRN (Reason: Pain 1-10 Or Fever >100.7) Qty: 0 0RF prednisone 10 mg tablet 10 mg PO DAILY Qty: 30 0RF Rx Instructions: 4 tabs daily for 3 days, then 3 tabs daily for 3 days, then 2 tabs daily for 3 days, then 1 tab daily for 3 days Continued atorvastatin 80 mg Tablet 80 mg PO QHS gabapentin 300 mg Capsule 300 mg PO TID PRN (Reason: Pain) aspirin 81 mg Tablet,Chewable 81 mg PO DAILY lisinopril 5 mg Tablet 5 mg PO DAILY albuterol sulfate [Proventil HFA] 90 mcg/actuation Hfa Aerosol Inhaler 2 puff INHALATION Q4H PRN (Reason: Wheezing) escitalopram oxalate 5 mg Tablet 5 mg PO DAILY guaifenesin 600 mg Tablet Extended Release 12hr 1,200 mg PO Q12H PRN (Reason: Cold Symptoms) Trelegy Ellipta 100-62.5-25 mcg Blister With Device 1 inh INHALATION DAILY melatonin 3 mg Capsule 6 mg PO QHS PRN (Reason: Insomnia) ipratropium-albuterol 0.5 mg-3 mg(2.5 mg base)/3 mL Solution For Nebulization 3 ml INHALATION Q6H 14 Days Qty: 0 0RF trazodone 100 mg Tablet 100 mg PO QHS PRN (Reason: insomnia) Qty: 30 0RF metoprolol tartrate 25 mg Tablet 12.5 mg PO BID 30 Days Qty: 30 0RF Discontinued quetiapine [Seroquel] 25 mg Tablet 25 mg PO QHS Hold Instructions: Resume on 10/08/22. Can consider resuming Seroquel at bedtime but would only do so if wearing BiPAP prednisone 20 mg tablet See Taper PO BREAKFAST Qty: 32 0RF Taper: Prednisone Taper 60 mg WITH BREAKFAST for 3 Days and 0 Hour 50 mg WITH BREAKFAST for 3 Days and 0 Hour 40 mg WITH BREAKFAST for 3 Days and 0 Hour 30 mg WITH BREAKFAST for 3 Days and 0 Hour 20 mg WITH BREAKFAST for 3 Days and 0 Hour 10 mg WITH BREAKFAST for 3 Days and 0 Hour levofloxacin 750 mg tablet 750 mg PO DAILY 6 Days Qty: 6 0RF Referrals / Follow Up: Care Physician,No Primary [Primary Care Provider] - Disposition Disposition (needs filled in before D/C Order can be placed): Longterm Facility
--- NOTE | 2022-10-08 09:48 | DS.PCM_ITS ---
Providers Date of Admission: 10/03/22 Primary Care Physician: No Primary Care Phys Reason For Visit: COPD, DEBILITY Diagnosis Discharge Diagnosis (1) COPD (chronic obstructive pulmonary disease): Status: Chronic Code(s): J44.9 - Chronic obstructive pulmonary disease, unspecified Plan: Acute exacerbation of chronic COPD with chronic hypoxic respiratory failure and pneumonia CT 10/05: shows severe emphysematous changes. Resp panel negative COVID 19 negative SCx 09/28: Pseudomonas On Prednisone taper On Levofloxacin through the (2) Debility: Status: Acute Code(s): R53.81 - Other malaise Plan: Pt refused therapy eval on 10/04 and . He did see therapy today and ambulated 3'. Will require SNF upon discharge (3) Lung nodule: Status: Acute Code(s): R91.1 - Solitary pulmonary nodule Plan: noted on CT follow up CT in 3 months (4) Chronic hypercapnic respiratory failure: Status: Chronic Code(s): J96.12 - Chronic respiratory failure with hypercapnia Plan: 2/2 COPD On ABG, pt's pCO2 was 71.1 Patient requires volume ventilation and all other alternative therapies, including bilevel, have been considered and ruled out due to the severity of the disease state, weak breathing muscles and potential life-threatening condition including CO2 retention probability of acute exacerbation, patient requires ventilation to be used during the day as needed, addition to every night usage with facemask. Complicating this is compliance Plan Chronic complicating conditions: * History of coronary artery disease-Metoprolol, aspirin, statin * Chronic anemia-Stable * Chronic heart failure with preserved ejection fraction-Echo 07/03/2021 based on note from [facility] demonstrates grade 1 left ventricular diastolic dysfunction EF around 40% with dilated RV with RV systolic function normal-Did have some increase in pulmonary markings on chest x-ray, will obtain BNP-Daily weights, I's and O's-10/04: BNP slightly elevated compared to previous, received 1 dose of Lasix, O2 sat improved-10/05: Given need for intermittent IV Lasix, will schedule 20 mg of Lasix daily and monitor daily weights and I's and O's as well as BMP DVT ppx: Lovenox subcu Disposition: to [facility] today Medications at Discharge Home Medications albuterol sulfate 90 mcg/actuation aerosol inhaler (Proventil HFA) 2 puff inhalation Q4H PRN Wheezing 09/24/22 aspirin 81 mg chewable tablet 81 mg PO DAILY heart health 09/24/22 atorvastatin 80 mg tablet 80 mg PO QHS cholesterol 09/24/22 escitalopram oxalate 5 mg tablet 5 mg PO DAILY Check with primary doctor fluticasone fur. 100 mcg-umeclid 62.5 mcg-vilant 25 mcg inhalat.powder (Trelegy Ellipta) 1 inh inhalation DAILY Check with primary doctor 09/24/22 gabapentin 300 mg capsule 300 mg PO TID PRN Pain 09/24/22 guaifenesin 600 mg tablet, extended release 12 hr 1,200 mg PO Q12H PRN Cold Symptoms 09/24/22 lisinopril 5 mg tablet 5 mg PO DAILY Check with primary doctor 09/24/22 melatonin 3 mg capsule 6 mg PO QHS PRN Insomnia 09/24/22 ipratropium 0.5 mg-albuterol 3 mg (2.5 mg base)/3 mL nebulization soln 3 ml inhalation Q6H 14 days #0 mL 09/30/22 trazodone 100 mg tablet 100 mg PO QHS PRN insomnia #30 tabs 09/30/22 metoprolol tartrate 25 mg tablet 12.5 mg PO BID 30 days #30 tabs 10/02/22 acetaminophen 325 mg tablet 650 mg PO Q6H PRN PRN Pain 1-10 Or Fever >100.7 #0 tabs 10/08/22 prednisone 10 mg tablet 10 mg PO DAILY #30 tabs 10/08/22 Weight / BMI Weight Weight: 90.5 kg Body Mass Index (BMI) 31.3 ABG / Lab / Microbiology Data Result Diagrams: 10/08/22 07:22 10/08/22 07:22 Laboratory: Laboratory Results - last 24 hr 10/08/22 07:22: WBC 7.7, RBC 3.23 L, Hgb 9.8 L, Hct 31.2 L, MCV 96.6 H, MCH 30.3, MCHC 31.4 L, RDW Std Deviation 53.9 H, RDW Coeff of Jessica 15.2 H, Plt Count 201, MPV 10.2, Immature Gran % (Auto) 0.300, Neut % (Auto) 78.2 H, Lymph % (Auto) 13.7 L, [place] % (Auto) 7.4, Eos % (Auto) 0.4, Baso % (Auto) 0.0, Absolute Neuts (auto) 6.0, Absolute Lymphs (auto) 1.05, Nucleated RBC % 0 10/08/22 07:22: Sodium 140, Potassium 3.8, Chloride 101, Carbon Dioxide 37.0 H, Anion Gap 2 L, BUN 30 H, Creatinine 0.93, Estim Creat Clear Calc 66.14, Est GFR (MDRD) Af Amer 103, Est GFR (MDRD) Non-Af 85, BUN/Creatinine Ratio 32.4 H, Glucose 91, Calcium 8.3 L, Total Bilirubin 0.30, AST 25, ALT 53, Alkaline Phosphatase 71, Total Protein 5.4 L, Albumin 2.5 L, Globulin 2.9, Albumin/Globulin Ratio 0.9 Microbiology: Microbiology 10/06/22 11:35 Sputum, Expectorated/Coughed Gram Stain - Final 10/03/22 15:10 Mucosa - Nose Respiratory Panel (PCR) - Final Meaningful Use Info Meaningful Use Diagnoses (Choose all that apply): None applicable Discharge Plan Admission Admit Date/Time: 10/03/22 14:30 Primary Reason for Your Visit: COPD exacerbation Attending Provider: Mane Singh Primary Care Provider: Care Physician,No Primary Consulting Providers: Love Maria Instructions Additional Instructions / Restrictions: - He had a spot in your lung seen on your image of your chest, this can have repeat imaging on an outpatient basis Discharge Orders/Prescriptions Prescriptions: New acetaminophen 325 mg Tablet 650 mg PO Q6H PRN PRN (Reason: Pain 1-10 Or Fever >100.7) Qty: 0 0RF prednisone 10 mg tablet 10 mg PO DAILY Qty: 30 0RF Rx Instructions: 4 tabs daily for 3 days, then 3 tabs daily for 3 days, then 2 tabs daily for 3 days, then 1 tab daily for 3 days Continued atorvastatin 80 mg Tablet 80 mg PO QHS gabapentin 300 mg Capsule 300 mg PO TID PRN (Reason: Pain) aspirin 81 mg Tablet,Chewable 81 mg PO DAILY lisinopril 5 mg Tablet 5 mg PO DAILY albuterol sulfate [Proventil HFA] 90 mcg/actuation Hfa Aerosol Inhaler 2 puff INHALATION Q4H PRN (Reason: Wheezing) escitalopram oxalate 5 mg Tablet 5 mg PO DAILY guaifenesin 600 mg Tablet Extended Release 12hr 1,200 mg PO Q12H PRN (Reason: Cold Symptoms) Trelegy Ellipta 100-62.5-25 mcg Blister With Device 1 inh INHALATION DAILY melatonin 3 mg Capsule 6 mg PO QHS PRN (Reason: Insomnia) ipratropium-albuterol 0.5 mg-3 mg(2.5 mg base)/3 mL Solution For Nebulization 3 ml INHALATION Q6H 14 Days Qty: 0 0RF trazodone 100 mg Tablet 100 mg PO QHS PRN (Reason: insomnia) Qty: 30 0RF metoprolol tartrate 25 mg Tablet 12.5 mg PO BID 30 Days Qty: 30 0RF Discontinued quetiapine [Seroquel] 25 mg Tablet 25 mg PO QHS Hold Instructions: Resume on 10/08/22. Can consider resuming Seroquel at bedtime but would only do so if wearing BiPAP prednisone 20 mg tablet See Taper PO BREAKFAST Qty: 32 0RF Taper: Prednisone Taper 60 mg WITH BREAKFAST for 3 Days and 0 Hour 50 mg WITH BREAKFAST for 3 Days and 0 Hour 40 mg WITH BREAKFAST for 3 Days and 0 Hour 30 mg WITH BREAKFAST for 3 Days and 0 Hour 20 mg WITH BREAKFAST for 3 Days and 0 Hour 10 mg WITH BREAKFAST for 3 Days and 0 Hour levofloxacin 750 mg tablet 750 mg PO DAILY 6 Days Qty: 6 0RF Referrals / Follow Up: Care Physician,No Primary [Primary Care Provider] - [facility] [Provider Group] - Within 1 Month (Lung nodule) Disposition Disposition (needs filled in before D/C Order can be placed): Intermediate Facility Charges/Coding Visit Charges Inpatient E&M: 88687 Disch Hosp
--- NOTE | 2022-10-08 09:53 | PHA.DC.MR ---
Pharmacy Service has performed discharge medication reconciliation for this patient. The patient's discharge medication list was reviewed for discrepancies and discrepancies were resolved. Home Medications albuterol sulfate 90 mcg/actuation aerosol inhaler (Proventil HFA) 2 puff inhalation Q4H PRN Wheezing 09/24/22 aspirin 81 mg chewable tablet 81 mg PO DAILY heart health 09/24/22 atorvastatin 80 mg tablet 80 mg PO QHS cholesterol 09/24/22 escitalopram oxalate 5 mg tablet 5 mg PO DAILY Check with primary doctor 09/24/22 fluticasone fur. 100 mcg-umeclid 62.5 mcg-vilant 25 mcg inhalat.powder (Trelegy Ellipta) 1 inh inhalation DAILY Check with primary doctor 09/24/22 gabapentin 300 mg capsule 300 mg PO TID PRN Pain 09/24/22 guaifenesin 600 mg tablet, extended release 12 hr 1,200 mg PO Q12H PRN Cold Symptoms 09/24/22 lisinopril 5 mg tablet 5 mg PO DAILY Check with primary doctor 09/24/22 melatonin 3 mg capsule 6 mg PO QHS PRN Insomnia 09/24/22 ipratropium 0.5 mg-albuterol 3 mg (2.5 mg base)/3 mL nebulization soln 3 ml inhalation Q6H 14 days #0 mL 09/30/22 trazodone 100 mg tablet 100 mg PO QHS PRN insomnia #30 tabs 09/30/22 metoprolol tartrate 25 mg tablet 12.5 mg PO BID 30 days #30 tabs 10/02/22 acetaminophen 325 mg tablet 650 mg PO Q6H PRN PRN Pain 1-10 Or Fever >100.7 #0 tabs 10/08/22 prednisone 10 mg tablet 10 mg PO DAILY #30 tabs 10/08/22
--- NOTE | 2022-10-08 10:52 | CASEMGMT ---
Social Work Precert has been obtained for skilled placement at [facility]. Physician updated and pt is ready for discharge today. Pt had concerns with breathing treatments at previous SNF. SW reviewed discharging med list with pt who is agreeable to the medication ordered. SW sent med list to [facility] who confirms they can provide medications and ordered breathing treatments. SW also sent bipap settings and [facility] states they will order this and it will be there late tonight. 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 Pt aware that he will be billed for transportation and is agreeable. Phone call to pt sherwin Hernandez and VM left with discharge time. PASRR completed and sent along with discharge orders to [facility] via [employer]. Disposition: [facility] SNF, skilled level of care TOMMY Bah
--- NOTE | 2022-10-08 12:02 | NURSING ---
Report called to Marlyn Uribe unable to take report at this time asked that i call back later.
--- NOTE | 2022-10-08 12:58 | NURSING ---
Report called to Elly at [facility].
== END 2022-10-08 13:13 | disposition skilled nursing facility (03) ==
LOC: ED 14:02 → MS3 14:44
PROVIDERS: Admitting Provider Internal Medicine; Emergency Provider Emergency Medicine
DX: J18.9 Pneumonia, unspecified organism (principal); J44.1 Chronic obstructive pulmonary disease with (acute) exacerbation; J44.0 Chronic obstructive pulmonary disease with (acute) lower respiratory infection; I50.32 Chronic diastolic (congestive) heart failure; J96.12 Chronic respiratory failure with hypercapnia; J96.11 Chronic respiratory failure with hypoxia; R53.81 Other malaise; Z87.891 Personal history of nicotine dependence; Z79.51 Long term (current) use of inhaled steroids; Z79.82 Long term (current) use of aspirin; I25.10 Atherosclerotic heart disease of native coronary artery without angina pectoris; Z86.16 Personal history of COVID-19; R91.1 Solitary pulmonary nodule; Z79.899 Other long term (current) drug therapy; R09.02 Hypoxemia
CPT/HCPCS: 36415; 36600; 71045; 71250; 80048; 80053; 82803; 83735; 83880; 84484; 85025; 87070; 87077; 87205; 87633; 93005; 94002; 94003; 94640; 94668; 94762; 96372; 96374; 96375; 96376; 97162; 97166; 97530; 97535; 99221; 99252; 99285; A4216; G0378; G0463; J1940

== ENCOUNTER 2022-10-27 22:50 | Observation (INO) | payer MEDICARE, SELFPAY ==
[2022-10-27 22:50] VITALS: BP 108/62; PULSE 94; RESP 22; TEMP 36.8; O2SAT 99; BMI 23.9
--- NOTE | 2022-10-27 23:15 | EKG12_ITS ---
Test Reason : DYSRHYTHMIA Blood Pressure : / mmHG Vent. Rate : 090 BPM Atrial Rate : 090 BPM P-R Int : 166 ms QRS Dur : 098 ms QT Int : 404 ms P-R-T Axes : 091 -39 102 degrees QTc Int : 494 ms Normal sinus rhythm Left axis deviation Septal infarct , age undetermined T wave abnormality, consider lateral ischemia Abnormal ECG Confirmed by SHERWIN CHAHAL, ALMA ([id number]), photo editor HERLINDA MACEDO ([id number]) on 10/29/2022 11:34:04 AM Referred By: ERNIE Confirmed By:YUMIKO COURTNEY MD
--- NOTE | 2022-10-27 23:15 | RAD_ITS ---
INDICATION: dyspnea EXAMINATION/TECHNIQUE: X-RAY - XR Chest 2 Views COMPARISON: 11/04/2022 FINDINGS: LINES/DEVICES: None. LUNGS: Hyperinflation and emphysema within both lungs more prominent in the right upper lobe. The previously described spiculated nodule is again noted in the right upper lobe measures approximately [address] follow-up in 3 months is recommended. MEDIASTINUM AND CARDIOVASCULAR STRUCTURES: Cardiac silhouette not enlarged. Central airways and mediastinal contour are unremarkable. BONES AND SOFT TISSUES: Unremarkable. RAD/Chest PA and Lateral IMPRESSION: Hyperinflation and emphysema within both lungs more prominent in the right upper lobe. The previously described spiculated nodule is again noted in the right upper lobe measures approximately [address] follow-up in 3 months is recommended. Electronically Signed: Lisy Lucas MD at 0:07 EDT ,
[2022-10-28] VITALS (10 sets, daily range): BP systolic 100–127; BP diastolic 40–90; PULSE 73–91; RESP 16–20; TEMP 36.6–37.4; O2SAT 95–99; BMI 22.9
[2022-10-28 00:27] LABS: Absolute Lymphocyte Count 1.25 X10^3/uL (0.83-4.51); Absolute Neutrophil Count 4.7 X10^3/uL (2.0-7.7); Basophil# 0.02 X10^3/uL; Basophil% 0.3 % (0-1); Eosinophils% 4.2 % (0-5); Hematocrit 39.6 % (40-54); Hemoglobin 12.1 g/dL (13.0-16.5); Lymphocyte # 1.25 X10^3/ul (0.83-4.51); Lymphocyte % 17.7 % (19-41); Mean Corp Hgb Conc 30.6 g/dL (32-36); Mean Corpuscular Hgb 29.5 pg (27.0-32.0); Mean Corpuscular Volume 96.6 fL (80-94); Mean Platelet Vol. 10.2 fl (6.2-12.0); Monocyte% 11.3 % (0-10); NRBC Flagged by Analyzer 0 % (0-5); Neutrophil # 4.67 X10^3/uL (2.7-7.7); Neutrophil % 66.1 % (47-70); Platelet Count 205 K/mm3 (150-450); RBC Distribution Width CV 14.6 % (11.6-14.6); RBC Distribution Width SD 51.9 fl (35.1-43.9); White Blood Count 7.1 K/mm3 (4.4-11.0)
[2022-10-28 00:38] LABS: Anion Gap 4 (5-15); BUN 46 mg/dL (7-18); BUN/Creat Ratio 34.6 RATIO (10-20); Calcium,Total 9.3 mg/dL (8.5-10.1); Chloride 98 mmol/L (98-107); Creatinine, Serum 1.33 mg/dL (0.70-1.30); EST Glomerular Filtration Rate 56 mL/min (>60); Est Glom Filt Rate - Afr Amer 68 mL/min (>60); Estimated Creatinine Clearance 49.47 ml/min; Glucose 96 mg/dL (74-106); Magnesium 2.4 mg/dL (1.6-2.6); Potassium 4.7 mmol/L (3.5-5.1); Sodium Level 136 mmol/L (136-145)
[2022-10-28 00:51] LABS: BNP,B-Type NATRIURETIC PEPTIDE 11.2 pg/mL (0-100)
--- NOTE | 2022-10-28 01:39 | EX.ED.DYSGE1 ---
HPI History of Present Illness Chief Complaint: Shortness of Breath Informant: patient and EMS Narrative Narrative: Patient is a 72-year-old male with past medical history of COPD who wears 5 L of nasal cannula oxygen 17/11 and CAD as well as hypertension hyperlipidemia. He was admitted to the hospital in September of this year secondary to COPD exacerbation. Apparently he went to a penitentiary/rehab facility following this. He states he was discharged home from the penitentiary today October 27 and after returning home despite wearing his oxygen had increasing shortness of breath that did not respond to his home nebulizer treatment. He states there is no chest pain diaphoresis nausea or vomiting associated with this. He denies any fevers or chills. He states that he cannot take care of himself at home and reports he has plans to be placed in a penitentiary long-term but that this will not occur for approximately 1 week. [facility] Medical History (Updated 10/28/22 @ 01:[address] Phi Jennings, DO) Amputation of arm CAD (coronary artery disease) Chronic hypercapnic respiratory failure COPD (chronic obstructive pulmonary disease) Ex-smoker Lung nodule Home Medications albuterol sulfate 90 mcg/actuation aerosol inhaler (Proventil HFA) 2 puff inhalation Q4H PRN Wheezing 09/24/22 [History Last Taken 09/24/22] aspirin 81 mg chewable tablet 81 mg PO DAILY heart health 09/24/22 [History Last Taken 09/24/22] atorvastatin 80 mg tablet 80 mg PO QHS cholesterol 09/24/22 [History Last Taken 09/23/22] escitalopram oxalate 5 mg tablet 5 mg PO DAILY Check with primary doctor 09/24/22 [History Last Taken 09/24/22] fluticasone fur. 100 mcg-umeclid 62.5 mcg-vilant 25 mcg inhalat.powder (Trelegy Ellipta) 1 inh inhalation DAILY Check with primary doctor 09/24/22 [History Last Taken Unknown] gabapentin 300 mg capsule 300 mg PO TID PRN Pain 09/24/22 [History Last Taken Unknown] guaifenesin 600 mg tablet, extended release 12 hr 1,200 mg PO Q12H PRN Cold Symptoms 09/24/22 [History Last Taken 09/24/22] lisinopril 5 mg tablet 5 mg PO DAILY Check with primary doctor 09/24/22 [History Last Taken 09/24/22] melatonin 3 mg capsule 6 mg PO QHS PRN Insomnia 09/24/22 [History Last Taken Unknown] trazodone 100 mg tablet 100 mg PO QHS PRN insomnia #30 tabs 09/30/22 [Rx Last Taken Unknown] metoprolol tartrate 25 mg tablet 12.5 mg (1/2 x 25 mg) PO BID 30 days #30 tabs 10/02/22 [Rx Last Taken Unknown] acetaminophen 325 mg tablet 650 mg (2 x 325 mg) PO Q6H PRN PRN Pain 1-10 Or Fever >100.7 #0 tabs 10/08/22 [Rx Last Taken Unknown] ipratropium 0.5 mg-albuterol 3 mg (2.5 mg base)/3 mL nebulization soln 3 ml inhalation Q4H 14 days #0 mL 10/08/22 [Rx Last Taken 10/03/22] prednisone 10 mg tablet 10 mg PO DAILY #30 tabs 10/08/22 [Rx Last Taken Unknown] Allergy/AdvReac Type Severity Reaction Status Date / Time No Known Allergies Allergy Verified 09/24/22 20:37 Surgical History History of ankle surgery Social History Smoking Status: Former smoker ROS ROS ED Constitutional Constitutional ED: Denies chills or fever(s) Eyes Eyes: Denies change in vision ENT ENT ED: Denies sore throat Cardiovascular Cardiovascular: Denies chest pain Respiratory/Chest Respiratory/Chest: Reports cough and dyspnea Gastrointestinal Gastrointestinal: Denies abdominal pain, diarrhea, nausea or vomiting Genitourinary Genitourinary ED: Denies dysuria Musculoskeletal Musculoskeletal: Denies myalgias Integumentary Denies rash Neurologic Neurologic: Reports weakness; Denies headache(s) Hematologic/Lymphatic Hematologic/Lymphatic: Denies easy bleeding or easy bruising EXAM Physical Exam Const Vital Signs: 10/27/22 22:50 10/28/22 00:50 Temperature 98.3 F Temperature Source Temporal Pulse Rate 94 90 Respiratory Rate 22 H 18 Blood Pressure 108/62 126/51 H Blood Pressure Mean 77 76 Pulse Ox 99 Oxygen Delivery Method Nasal Cannula Oxygen Flow Rate (L/min) 5 Positive well nourished and well developed General Appearance ED: well developed HEENT Reports dry mucous membranes HEENT Narrative: No tongue or lip swelling no oral lesions no airway edema or compromise Mouth ED: Yes dry mucous membranes Mouth: dry mucous membranes Eyes PERRL and EOMs intact bilaterally General Eye ED: Negative for pale conjunctiva Neck supple and no JVD Chest Wall palpation of chest normal Resp normal respiratory effort Resp Narrative: Breath sounds are diminished throughout with faint rhonchi and expiratory wheeze throughout consistent with history of COPD otherwise no nasal flaring or retractions or accessory muscle use there is slight tachypnea noted. 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 Negative Homans' sign bilaterally Neuro oriented x3 and CN's II-XII intact bilaterally Sensorium / Orientation: alert Psych mental status grossly normal Skin no rashes or lesions noted MDM MDM MDM Narrative Medical decision making narrative: Patient presented to the ER satting 98 to 100% on his normal 5 L. He did have faint rhonchi and wheeze but this is most likely constant/chronic in nature based on his history of smoking. Differential diagnosis includes COPD versus emphysema versus pneumothorax versus pleural effusion versus generalized weakness and failure to thrive or electrolyte derangement. Secondary to patient's report that he is unable to care for himself I did elect to perform a repeat work-up. Labs revealed no clinically significant findings and chest x-ray revealed no acute lung pathology. He remained on his 5 L and pulse ox remained 95 to 100%. At this time as patient is unable to care for himself he is not safe for discharge and therefore we will admit the patient to the medicine service for further care and social work evaluation with possibility of penitentiary placement History & Record Review Discussion w/independent historian: Patient Lab Data Attestation: I reviewed the patient's lab results. Labs: Laboratory Results - last 24 hr 10/28/22 00:05 WBC 7.1 RBC 4.10 L Hgb 12.1 L Hct 39.6 L MCV 96.6 H MCH 29.5 MCHC 30.6 L RDW Std Deviation 51.9 H RDW Coeff of Jessica 14.6 Plt Count 205 MPV 10.2 Immature Gran % (Auto) 0.400 Neut % (Auto) 66.1 Lymph % (Auto) 17.7 L [place] % (Auto) 11.3 H Eos % (Auto) 4.2 Baso % (Auto) 0.3 Absolute Neuts (auto) 4.7 Absolute Lymphs (auto) 1.25 Nucleated RBC % 0 Sodium 136 Potassium 4.7 Chloride 98 Carbon Dioxide 34.0 H Anion Gap 4 L BUN 46 H Creatinine 1.33 H Estim Creat Clear Calc 49.47 Est GFR (MDRD) Af Amer 68 Est GFR (MDRD) Non-Af 56 L BUN/Creatinine Ratio 34.6 H Glucose 96 Calcium 9.3 Magnesium 2.4 B-Natriuretic Peptide 11.2 Radiography Diagnostic Testing: Clinical Impression(s) from Imaging Studies Chest X-Ray 10/27/22 23:15 IMPRESSION: Hyperinflation and emphysema within both lungs more prominent in the right upper lobe. The previously described spiculated nodule is again noted in the right upper lobe measures approximately [address] follow-up in 3 months is recommended. Electronically Signed: Lisy Lucas MD at 0:07 EDT , Chest x-ray as interpreted by the emergency medicine physician reveals hyperinflation consistent with emphysema without acute infiltrate pneumothorax or pleural effusion Management Discussion w/another healthcare provider: Hospitalist Discharge Plan Dx/Rx/DC Orders Clinical Impression: Weakness, COPD (chronic obstructive pulmonary disease), Adult failure to thrive, Debility Disposition Disposition: Acute Care Hospital [facility]
--- NOTE | 2022-10-28 02:38 | HP.PCM.HOS_ITS ---
HPI - General General Date of Admission: 10/28/22 Date of Service: 10/28/22 Chief Complaint: Inability to take care of self HPI Narrative LILIA SIBLEY, is a 72 M with a significant history of COPD; left above the elbow amputation; former smoker with 50 PPD per day who presents to the emergency department with inability to care for himself. Patient was admitted to the hospital on 10/03/2022 and discharged to the long term on 10/08/2022. His last admission was for COPD exacerbation Upon discharge from the long term to his home patient return to emergency department on the same day. He reported that he got home and he felt short of breath. He took his inhalers but he was not getting better so he called the paramedics and was brought to the emergency department. He reports chronic wheezes and chronic productive cough of clear sputum which has not changed. Patient is on chronic 5 L of nasal cannula oxygen. At the emergency department on 4 L to 5 L of nasal cannula oxygen his oxygen saturation was about 97 to 98%. However patient stated that he is unable to take care of himself at home. Reportedly because of insurance issues the plan was for him to be discharged from the long term and then go back to a different long term. Reportedly his daughter is working on getting a new next home for him. [facility] Medical History Amputation of arm CAD (coronary artery disease) Chronic hypercapnic respiratory failure COPD (chronic obstructive pulmonary disease) Ex-smoker Lung nodule Home Medications albuterol sulfate 90 mcg/actuation aerosol inhaler (Proventil HFA) 2 puff inhalation Q4H PRN Wheezing 09/24/22 [History Last Taken 09/24/22] aspirin 81 mg chewable tablet 81 mg PO DAILY heart health 09/24/22 [History Last Taken 09/24/22] atorvastatin 80 mg tablet 80 mg PO QHS cholesterol 09/24/22 [History Last Taken 09/23/22] escitalopram oxalate 5 mg tablet 5 mg PO DAILY Check with primary doctor 09/24/22 [History Last Taken 09/24/22] fluticasone fur. 100 mcg-umeclid 62.5 mcg-vilant 25 mcg inhalat.powder (Trelegy Ellipta) 1 inh inhalation DAILY Check with primary doctor 09/24/22 [History Last Taken Unknown] gabapentin 300 mg capsule 300 mg PO TID PRN Pain 09/24/22 [History Last Taken Unknown] guaifenesin 600 mg tablet, extended release 12 hr 1,200 mg PO Q12H PRN Cold Symptoms 09/24/22 [History Last Taken 09/24/22] lisinopril 5 mg tablet 5 mg PO DAILY Check with primary doctor 09/24/22 [History Last Taken 09/24/22] melatonin 3 mg capsule 6 mg PO QHS PRN Insomnia 09/24/22 [History Last Taken Unknown] trazodone 100 mg tablet 100 mg PO QHS PRN insomnia #30 tabs 09/30/22 [Rx Last Taken Unknown] metoprolol tartrate 25 mg tablet 12.5 mg (1/2 x 25 mg) PO BID 30 days #30 tabs 10/02/22 [Rx Last Taken Unknown] acetaminophen 325 mg tablet 650 mg (2 x 325 mg) PO Q6H PRN PRN Pain 1-10 Or Fever >100.7 #0 tabs 10/08/22 [Rx Last Taken Unknown] ipratropium 0.5 mg-albuterol 3 mg (2.5 mg base)/3 mL nebulization soln 3 ml inhalation Q4H 14 days #0 mL 10/08/22 [Rx Last Taken 10/03/22] prednisone 10 mg tablet 10 mg PO DAILY #30 tabs 10/08/22 [Rx Last Taken Unknown] Allergy/AdvReac Type Severity Reaction Status Date / Time No Known Allergies Allergy Verified 09/24/22 20:37 Family History Mother Cancer Surgical History History of ankle surgery Social History Smoking Status: Former smoker ROS ROS Narrative Pertinent positives and pertinent negatives as noted in HPI. All other systems were reviewed and are negative Vital Signs Vital Signs Vital Signs: 10/27/22 22:50 10/28/22 02:14 10/28/22 00:50 Temperature 98.3 F 99.3 F H Temperature Source Temporal Temporal Pulse Rate 94 91 90 Respiratory Rate 22 H 18 18 Blood Pressure 108/62 127/90 H 126/51 H Blood Pressure Mean 77 102 76 Pulse Ox 99 97 Oxygen Delivery Method Nasal Cannula Room Air Oxygen Flow Rate (L/min) 5 Weight Weight: 73.6 kg Body Mass Index (BMI) 23.9 Physical Exam Narrative Physical exam: General: Well-nourished, well-developed. Head: Normocephalic, atraumatic, no tenderness Eyes: Vision is grossly intact. EOMI ENT, no trauma, moist mucous membranes, no rhinorrhea Neck: Nontender, No thyromegaly. CVS: Regular rate and rhythm. S1-S2 present. No murmur, gallop or rub. Respiratory : Mild rhonchi auscultation bilaterally, chest wall nontender Abdomen: Soft, nontender, nondistended, normal bowel sounds, no masses : Deferred Back: Nontender, no CVA tenderness. Extremities: Left above the elbow amputation. Nontender full range of motion. Skin: Normal color, no trauma, abrasions Neuro: Alert, oriented, cranial nerves II through XII grossly intact. Psychiatry: Normal mood. Normal affect. Not depressed. Not anxious. Results Lab / Micro Data 10/28/22 00:05 10/28/22 00:05 Labs: Laboratory Results - last 24 hr 10/28/22 00:05: WBC 7.1, RBC 4.10 L, Hgb 12.1 L, Hct 39.6 L, MCV 96.6 H, MCH 29.5, MCHC 30.6 L, RDW Std Deviation 51.9 H, RDW Coeff of Jessica 14.6, Plt Count 205, MPV 10.2, Immature Gran % (Auto) 0.400, Neut % (Auto) 66.1, Lymph % (Auto) 17.7 L, [place] % (Auto) 11.3 H, Eos % (Auto) 4.2, Baso % (Auto) 0.3, Absolute Neuts (auto) 4.7, Absolute Lymphs (auto) 1.25, Nucleated RBC % 0, Sodium 136, Potassium 4.7, Chloride 98, Carbon Dioxide 34.0 H, Anion Gap 4 L, BUN 46 H, Creatinine 1.33 H, Estim Creat Clear Calc 49.47, Est GFR (MDRD) Af Amer 68, Est GFR (MDRD) Non-Af 56 L, BUN/Creatinine Ratio 34.6 H, Glucose 96, Calcium 9.3, Magnesium 2.4, B-Natriuretic Peptide 11.2 Radiology Impression Chest X-Ray 10/27/22 23:15 IMPRESSION: Hyperinflation and emphysema within both lungs more prominent in the right upper lobe. The previously described spiculated nodule is again noted in the right upper lobe measures approximately [address] follow-up in 3 months is recommended. Electronically Signed: Lisy Lucas MD at 0:07 EDT , Assessment & Plan Assessment/Plan (1) Adult failure to thrive: (2) COPD (chronic obstructive pulmonary disease): QUALIFIERS: COPD type: emphysema Emphysema type: unspecified Qualified Code(s): J43.9 - Emphysema, unspecified PLAN: Plan Adult failure to thrive. PT and OT consult. Case management consult. COPD Not in exacerbation. Impression of chest x-ray by radiology:Hyperinflation and emphysema within both lungs more prominent in the right upper lobe. The previously described spiculated nodule is again noted in the right upper lobe measures approximately [address] follow-up in 3 months is recommended. Chest x-ray was visualized and independent interpreted. I agree with radiology interpretation of no acute cardiopulmonary process. Scheduled and as needed breathing treatments ordered Continue oxygen administration. White count is not elevated, trend. Scheduled and as needed breathing treatment ordered. Hypertension Blood pressure is stable. Will continue home blood pressure medications. Trend blood pressure and adjust blood pressure medications. DVT prophylaxis: Subcutaneous Lovenox ordered. Charges/Coding Visit Charges Inpatient E&M: 43293 Init Hosp L2
--- NOTE | 2022-10-28 09:38 | PCM.PN.HOSP ---
Reason for Visit Reason for Visit: Inability to care for himself Subjective Subjective Patient is a 72-year-old white male with a history of COPD chronically on 5 L nasal cannula who presented to the emergency department at [facility] on 10/28/2022 due to the inability to care for himself. He was recently hospitalized from 10/03/2022 through 10/08/2022 and [facility]. He was discharged from the nursing facility on 10/27/2022 and had worsening shortness of breath despite him wearing his oxygen that did not respond to his home nebulizer treatment. He denies any chest pain, diaphoresis, nausea, vomiting or fever or chills. He indicated he simply was not able to take care of himself at home and needs to be placed in nursing facility long-term. Evidently they had been working on this as an outpatient but this was not able to be pursued for about a week so he came to the emergency department for ongoing care. He was admitted to the medical floor under observation and therapy services were consulted. The reason for admission was failure to thrive at home and he did not appear to be in a COPD exacerbation on admission. Patient denies any shortness of breath. Is feeling fine at this time. Does admit that he needs more help than he has at home and cannot take care of himself. Objective Data Objective Data Vital Signs: Vital Signs Temp Pulse Resp BP Pulse Ox O2 Del Method O2 Flow Rate 98.4 F 88 18 120/69 99 Nasal Cannula 2 10/28/22 03:09 10/28/22 03:09 10/28/22 03:09 10/28/22 03:09 10/28/22 03:09 10/28/22 03:27 10/28/22 03:27 Oxygen Flow Rate (L/min) 2 Oxygen Delivery Method Nasal Cannula Weight: 70.5 kg Body Mass Index (BMI) 22.9 Intake & Output: Intake and Output for Last 24 Hours 10/26/22 10/27/22 10/28/22 23:59 23:59 23:59 Intake Total 400 / 400 Balance 400 / 400 Lab / Micro Data 10/28/22 00:05 10/28/22 00:05 Labs: Laboratory Results - last 24 hr 10/28/22 00:05: WBC 7.1, RBC 4.10 L, Hgb 12.1 L, Hct 39.6 L, MCV 96.6 H, MCH 29.5, MCHC 30.6 L, RDW Std Deviation 51.9 H, RDW Coeff of Jessica 14.6, Plt Count 205, MPV 10.2, Immature Gran % (Auto) 0.400, Neut % (Auto) 66.1, Lymph % (Auto) 17.7 L, [place] % (Auto) 11.3 H, Eos % (Auto) 4.2, Baso % (Auto) 0.3, Absolute Neuts (auto) 4.7, Absolute Lymphs (auto) 1.25, Nucleated RBC % 0, Sodium 136, Potassium 4.7, Chloride 98, Carbon Dioxide 34.0 H, Anion Gap 4 L, BUN 46 H, Creatinine 1.33 H, Estim Creat Clear Calc 49.47, Est GFR (MDRD) Af Amer 68, Est GFR (MDRD) Non-Af 56 L, BUN/Creatinine Ratio 34.6 H, Glucose 96, Calcium 9.3, Magnesium 2.4, B-Natriuretic Peptide 11.2 Radiography Diagnostic Testing: Radiology Impression Chest X-Ray 10/27/22 23:15 IMPRESSION: Hyperinflation and emphysema within both lungs more prominent in the right upper lobe. The previously described spiculated nodule is again noted in the right upper lobe measures approximately [address] follow-up in 3 months is recommended. Electronically Signed: Lisy Lucas MD at 0:07 EDT Reading Location ID and State: [facility] / [place] Tel , Service support , Physical Exam Const alert, oriented x3, no apparent distress and average body habitus Constitutional Narrative: Elderly, white male, lying in bed, appears older than stated age, appears comfortable at this time, sleeping on my arrival but awakens easily and appropriately interactive HEENT head/scalp atraumatic and moist oral mucous membranes HEENT Narrative: Dentition is poor, Mallampati is 2, no thrush Head and Scalp: normocephalic Resp normal respiratory effort, no retractions, no use of accessory muscles and clear to auscultation bilaterally Resp Narrative: Severely diminished diffusely but no adventitious sounds noted Auscultation: Negative for rales, rhonchi or wheezes Cardio regular rate, regular rhythm, S1 normal heart sound, S2 normal heart sound, no murmurs, no rub, no gallops and no clicks GI normal to inspection, nondistended, normoactive bowel sounds, soft to palpation and non-tender Extremity no clubbing, cyanosis or edema Extremity Narrative: Pedal pulses are 2+ Neuro oriented x3, moves all extremities and no focal motor deficits Speech: speech normal Psych Psych Narrative: Affect is flat and mood seems depressed Assessment & Plan Assessment/Plan (1) Adult failure to thrive: PLAN: Plan Failure to thrive -Patient indicates he was just [facility] the [facility] 10[facility]22 and was admitted after presenting to the emergency department early this morning on 10/28/2022 -Patient indicated he simply cannot take care of himself at home and will need placed long-term -PT/OT consultation -Case management/social work consultation Chronic hypoxic respiratory failure due to COPD -Patient follows with outpatient pulmonary medicine -No current signs of exacerbation -Continue DuoNebs and as needed albuterol -Continue home inhalers with Trelegy Ellipta -Continue oxygen supplementation and patient is on his baseline of 5 L currently -If develops any wheezing will add steroids Pulmonary nodule -Patient does follow-up with pulmonary medicine as an outpatient and will need close follow-up within a week or 2 after discharge for further recommendations on treatment of his newly diagnosed pulmonary nodule CAD/HTN Continue aspirin -Continue atorvastatin-continue lisinopril -Continue metoprolol History of arm amputation -Continue gabapentin -PT/OT consultation Depression -Continue Lexapro -Continue Seroquel Insomnia -Continue to resident DVT prophylaxis -Continue enoxaparin CODE STATUS -DNR CCA with no intubation Charges/Coding Visit Charges Inpatient E&M: 26506 Subs Hosp L2
[2022-10-28] MEDS: Albuterol 2.5 MG/3 ML VIAL.NEB. INHALATION ×2 (10:16→17:24)
[2022-10-28] MEDS: Enoxaparin 40 MG/0.4 ML Syringe SC (10:29)
[2022-10-28] MEDS: Ipratropium/Albuterol Sulfate 3 ML AMPUL.NEB INHALATION ×2 (13:15→19:20)
[2022-10-28] MEDS: Acetaminophen 325 MG Tablet 650 MG PO (19:42)
[2022-10-28] MEDS: Atorvastatin Calcium 80 MG Tablet PO (21:20)
[2022-10-28] MEDS: QUEtiapine 25 MG Tablet PO (21:20)
[2022-10-29] VITALS (14 sets, daily range): BP systolic 86–130; BP diastolic 60–69; PULSE 65–99; RESP 16–20; TEMP 36.4–36.9; O2SAT 94–100
[2022-10-29] MEDS: Ipratropium/Albuterol Sulfate 3 ML AMPUL.NEB INHALATION ×3 (01:15→19:36)
[2022-10-29] MEDS: Albuterol 2.5 MG/3 ML VIAL.NEB. INHALATION ×3 (05:30→22:14)
[2022-10-29 07:00] LABS: Absolute Lymphocyte Count 1.25 X10^3/uL (0.83-4.51); Absolute Neutrophil Count 2.4 X10^3/uL (2.0-7.7); Basophil# 0.02 X10^3/uL; Basophil% 0.4 % (0-1); Eosinophil# 0.29 X10^3/uL; Eosinophils% 6.3 % (0-5); Hematocrit 33.4 % (40-54); Hemoglobin 10.6 g/dL (13.0-16.5); Lymphocyte # 1.25 X10^3/ul (0.83-4.51); Lymphocyte % 27.2 % (19-41); Mean Corp Hgb Conc 31.7 g/dL (32-36); Mean Corpuscular Hgb 29.7 pg (27.0-32.0); Mean Corpuscular Volume 93.6 fL (80-94); Mean Platelet Vol. 9.5 fl (6.2-12.0); Monocyte# 0.58 X10^3/uL; Monocyte% 12.6 % (0-10); NRBC Flagged by Analyzer 0 % (0-5); Neutrophil # 2.44 X10^3/uL (2.7-7.7); Neutrophil % 53.3 % (47-70); Platelet Count 181 K/mm3 (150-450); RBC Distribution Width CV 14.4 % (11.6-14.6); RBC Distribution Width SD 49.7 fl (35.1-43.9); Red Blood Count 3.57 M/mm3 (4.6-6.2); White Blood Count 4.6 K/mm3 (4.4-11.0)
[2022-10-29 07:30] LABS: Anion Gap 1 (5-15); BUN 31 mg/dL (7-18); BUN/Creat Ratio 31.4 RATIO (10-20); Calcium,Total 8.6 mg/dL (8.5-10.1); Chloride 102 mmol/L (98-107); Creatinine, Serum 0.99 mg/dL (0.70-1.30); EST Glomerular Filtration Rate 79 mL/min (>60); Est Glom Filt Rate - Afr Amer 96 mL/min (>60); Estimated Creatinine Clearance 66.27 ml/min; Glucose 86 mg/dL (74-106); Potassium 4.4 mmol/L (3.5-5.1); Sodium Level 138 mmol/L (136-145)
[2022-10-29] MEDS: Enoxaparin 40 MG/0.4 ML Syringe SC (08:48)
[2022-10-29] MEDS: Aspirin 81 MG TAB.CHEW PO (08:49)
[2022-10-29] MEDS: Escitalopram Oxalate 10 MG Tablet 5 MG PO (08:49)
[2022-10-29] MEDS: Lisinopril 5 MG Tablet PO (08:49)
[2022-10-29] MEDS: Metoprolol Tartrate 25 MG Tablet PO ×2 (08:49→21:22)
--- NOTE | 2022-10-29 10:53 | CASEMGMT ---
Addendum entered by Ria Simms 10/29/22 14:55: NICA spoke with Cat at [facility] who state they were not able to assess pt on Thursday and therefore cannot accept him into their AL. Pt could be admitted to the SNF unit at [facility] and they could work on getting him to AL from there. NICA placed call to pt dgt who states pt is to go to [facility]. THERESA left with Shelly at [facility]. SW will await return call. TOMMY Fairbanks Addendum entered by Ria Simms 10/29/22 11:26: NICA spoke with Lorenzo at [facility]. Pt was denied continue stay by insurance on Thursday, pt appealed and lost and was therefore discharged on Thursday. Pt and dgt were working on assisted living placement but were unable to secure a facility by the time he had to dischrage due to insurance non coverage. Pt returned home on Thursday with intentions to stay at home until dgt could secure an Assisted Living for chcf placement. Pt dgt was working with [facility] to find an AL. [facility] was able to accept but no beds until after November 03, [facility] declined and [facility] accepted late in the day on Thursday. NICA placed call to [facility] and VM left. NICA will await return call from this facility and from pt dgt. TOMMY Fairbanks Original Note: Social Work SW met with pt who is known to this SW from previous visits. Pt is able to recognize SW and agreeable to discuss discharge plan. Pt was discharged from [facility] to [facility] on 10/08/22. Pt states he was discharged home on 10/27 and only home a few hours and could not care for self and returned to hospital. NICA spoke with pt regarding [employer] [employer] placement at SNF and pt has failed returning home from hospital/SNF multiple times over the last few months and most times only stays home for a few hours before he is readmitted to hospital. Pt confirms that it is time for chcf placement. Pt states his dgt and the facility were working on this but he is unsure where they are in the process. With permission, phone call to pt dgt Mary Rivas and THERESA left requesting return call. Phone call to NICA Ventura at [facility] and left requesting return call to discuss discharge from their facility. NICA inquired about where pt would like to go and pt stating he does not care which facility he goes to but [place] [facility]. SW will await return call from dgt and SNF SW to collaborate on chcf placement. TOMMY Fairbanks
--- NOTE | 2022-10-29 11:27 | CASEMGMT ---
Advance Directives During admission in September pt dgt confirmed pt has a HCPOA naming herself, Mary Rivas. Mary does not have a copy of this document but states it is on file at [facility]. on 09/29 an ORVILLE was signed by pt and faxed to [facility] medical records. Documents has not yet been received. TOMMY Fairbanks
--- NOTE | 2022-10-29 18:04 | PCM.PN.HOSP ---
Reason for Visit Reason for Visit: Failure to thrive Subjective Subjective No overnight issues. Social work is currently plan on disposition. It does appear that they were trying to get him into an assisted living facility and appealed for extended time at the chcf facility however lost the appeal and he had to go home. Unfortunately he is not able to stay home and return to the hospital. Objective Data Objective Data Vital Signs: Vital Signs Temp Pulse Resp BP Pulse Ox O2 Del Method O2 Flow Rate 97.5 F L 72 19 H 110/63 100 Nasal Cannula 2 10/29/22 14:30 10/29/22 15:17 10/29/22 15:17 10/29/22 14:30 10/29/22 14:30 10/29/22 14:32 10/29/22 14:32 Oxygen Flow Rate (L/min) 2 Oxygen Delivery Method Nasal Cannula Weight: 70.5 kg Body Mass Index (BMI) 22.9 Intake & Output: Intake and Output for Last 24 Hours 10/27/22 10/28/22 10/29/22 23:59 23:59 23:59 Intake Total 400 / 500 100 / 100 Balance 400 / 500 100 / 100 Lab / Micro Data 10/29/22 06:49 10/29/22 06:19 Labs: Laboratory Results - last 24 hr 10/29/22 06:19: Sodium 138, Potassium 4.4, Chloride 102, Carbon Dioxide 35.0 H, Anion Gap 1 L, BUN 31 H, Creatinine 0.99, Estim Creat Clear Calc 66.27, Est GFR (MDRD) Af Amer 96, Est GFR (MDRD) Non-Af 79, BUN/Creatinine Ratio 31.4 H, Glucose 86, Calcium 8.6 10/29/22 06:49: WBC 4.6, RBC 3.57 L, Hgb 10.6 L, Hct 33.4 L, MCV 93.6, MCH 29.7, MCHC 31.7 L, RDW Std Deviation 49.7 H, RDW Coeff of Jessica 14.4, Plt Count 181, MPV 9.5, Immature Gran % (Auto) 0.200, Neut % (Auto) 53.3, Lymph % (Auto) 27.2, [place] % (Auto) 12.6 H, Eos % (Auto) 6.3 H, Baso % (Auto) 0.4, Absolute Neuts (auto) 2.4, Absolute Lymphs (auto) 1.25, Nucleated RBC % 0 Physical Exam Const alert, oriented x3, no apparent distress and average body habitus Constitutional Narrative: Thin, older, white male, appears older than stated age, appears comfortable nontoxic, social work at bedside HEENT head/scalp atraumatic Head and Scalp: normocephalic Psych affect normal Psych Narrative: Patient is pleasant, appropriately interactive Assessment & Plan Assessment/Plan (1) Adult failure to thrive: PLAN: Plan Failure to thrive -Patient indicates he was just discharged from the long term on 10/27/2022 and was admitted after presenting to the emergency department early this morning on 10/28/2022 -Patient indicated he simply cannot take care of himself at home and will need placed long-term -PT/OT following -Case management/social work following Chronic hypoxic respiratory failure due to COPD -Patient follows with outpatient pulmonary medicine -No current signs of exacerbation -Continue DuoNebs and as needed albuterol -Continue home inhalers with Trelegy Ellipta -Continue oxygen supplementation and patient is on his baseline of 5 L currently -If develops any wheezing will add steroids Pulmonary nodule -Patient does follow-up with pulmonary medicine as an outpatient and will need close follow-up within a week or 2 after discharge for further recommendations on treatment of his newly diagnosed pulmonary nodule CAD/HTN Continue aspirin -Continue atorvastatin-continue lisinopril -Continue metoprolol History of arm amputation -Continue gabapentin -PT/OT consultation Depression -Continue Lexapro -Continue Seroquel Insomnia -Continue to resident DVT prophylaxis -Continue enoxaparin CODE STATUS -DNR CCA with no intubation Charges/Coding Visit Charges Inpatient E&M: 38399 [facility] Hosp L1
[2022-10-29] MEDS: Atorvastatin Calcium 80 MG Tablet PO (21:22)
[2022-10-29] MEDS: QUEtiapine 25 MG Tablet PO (23:13)
[2022-10-30] VITALS (12 sets, daily range): BP systolic 102–120; BP diastolic 42–72; PULSE 65–86; RESP 16–20; TEMP 36.6–37.2; O2SAT 95–100
[2022-10-30] MEDS: Ipratropium/Albuterol Sulfate 3 ML AMPUL.NEB INHALATION ×4 (00:36→18:40)
[2022-10-30] MEDS: Metoprolol Tartrate 25 MG Tablet PO ×2 (09:30→21:03)
[2022-10-30] MEDS: Lisinopril 5 MG Tablet PO (09:30)
[2022-10-30] MEDS: Escitalopram Oxalate 10 MG Tablet 5 MG PO (09:32)
[2022-10-30] MEDS: Aspirin 81 MG TAB.CHEW PO (09:32)
[2022-10-30] MEDS: Enoxaparin 40 MG/0.4 ML Syringe SC (09:33)
--- NOTE | 2022-10-30 10:35 | CASEMGMT ---
Addendum entered by Ria Simms 10/30/22 16:34: Social Work Voicemails left with admissions at [facility] at [phone], [phone], [phone]. SW spoke with my at [facility] at this time and she states they have not done an assessment for pt but if pt is on 5L of oxygen they cannot accept. 3L of O2 is the home order but pt states he uses 3-4L. Pt is currently on 5L. [facility] denies admission due to oxygen needs. Phone call to pt dgt and updated. A list of SNF providers including quality and resource use data and consistent with the patient?s preferred geographic region, medical needs, and insurance network were provided via the [employer] Guide Link. Dgt to review list and to have preferred choices by tomorrow morning. TOMMY Fairbanks Original Note: Social Work Call placed to [facility]. VM left for Shelly creative services coordinator requesting return call to discuss placement. NICA will await return call. TOMMY Fairbanks
[2022-10-30] MEDS: Albuterol 2.5 MG/3 ML VIAL.NEB. INHALATION (11:28)
--- NOTE | 2022-10-30 16:22 | PCM.PN.HOSP ---
Reason for Visit Reason for Visit: Adult failure to thrive Subjective Subjective No issues overnight. Still awaiting placement. Objective Data Objective Data Vital Signs: Vital Signs Temp Pulse Resp BP Pulse Ox O2 Del Method O2 Flow Rate 98.9 F 65 20 H 111/72 98 Nasal Cannula 2 10/30/22 16:19 10/30/22 16:19 10/30/22 16:19 10/30/22 16:19 10/30/22 16:19 10/30/22 16:19 10/30/22 16:19 Oxygen Flow Rate (L/min) 2 Oxygen Delivery Method Nasal Cannula Weight: 70.5 kg Body Mass Index (BMI) 22.9 Intake & Output: Intake and Output for Last 24 Hours 10/28/22 10/29/22 10/30/22 23:59 23:59 23:59 Intake Total 400 / 500 100 / 100 Balance 400 / 500 100 / 100 Lab / Micro Data 10/29/22 06:49 10/29/22 06:19 Physical Exam Const alert, oriented x3, no apparent distress and average body habitus Constitutional Narrative: Elderly, chronically ill-appearing white male, lying in bed sleeping, arouses easily upon me entering the room and normally interactive, appears comfortable nontoxic HEENT head/scalp atraumatic HEENT Narrative: Dentition is poor, no thrush Head and Scalp: normocephalic Neuro oriented x3, moves all extremities and no focal motor deficits Psych Psych Narrative: Affect is flattened seems depressed however is appropriate for the situation Assessment & Plan Assessment/Plan (1) Adult failure to thrive: PLAN: Plan Failure to thrive -Patient indicates he was just [facility] from the [facility] on 10/27/2022 and was admitted after presenting to the emergency department early this morning on 10/28/2022 -Patient indicated he simply cannot take care of himself at home and will need placed long-term -PT/OT following -Case management/social work following Chronic hypoxic respiratory failure due to COPD -Patient follows with outpatient pulmonary medicine -No current signs of exacerbation -Continue DuoNebs and as needed albuterol -Continue home inhalers with Trelegy Ellipta -Continue oxygen supplementation and patient is on his baseline of 5 L currently -If develops any wheezing will add steroids Pulmonary nodule -Patient does follow-up with pulmonary medicine as an outpatient and will need close follow-up within a week or 2 after discharge for further recommendations on treatment of his newly diagnosed pulmonary nodule CAD/HTN Continue aspirin -Continue atorvastatin-continue lisinopril -Continue metoprolol History of arm amputation -Continue gabapentin -PT/OT consultation Depression -Continue Lexapro -Continue Seroquel Insomnia -Continue to resident DVT prophylaxis -Continue enoxaparin CODE STATUS -DNR CCA with no intubation Disposition: -Patient has no medical needs. Currently awaiting placement. Charges/Coding Visit Charges Inpatient E&M: 69685 [facility] Hosp L1
[2022-10-30] MEDS: QUEtiapine 25 MG Tablet PO (21:03)
[2022-10-30] MEDS: Acetaminophen 325 MG Tablet 650 MG PO (21:03)
[2022-10-30] MEDS: Atorvastatin Calcium 80 MG Tablet PO (21:03)
[2022-10-31] VITALS (10 sets, daily range): BP systolic 92–110; BP diastolic 37–84; PULSE 63–90; RESP 18–20; TEMP 36.6–37.2; O2SAT 94–97
[2022-10-31] MEDS: Ipratropium/Albuterol Sulfate 3 ML AMPUL.NEB INHALATION ×4 (00:58→19:08)
[2022-10-31 06:49] LABS: Absolute Lymphocyte Count 1.73 X10^3/uL (0.83-4.51); Absolute Neutrophil Count 2.2 X10^3/uL (2.0-7.7); Basophil# 0.03 X10^3/uL; Basophil% 0.6 % (0-1); Eosinophil# 0.34 X10^3/uL; Eosinophils% 6.8 % (0-5); Hematocrit 33.6 % (40-54); Hemoglobin 10.5 g/dL (13.0-16.5); Lymphocyte # 1.73 X10^3/ul (0.83-4.51); Lymphocyte % 34.8 % (19-41); Mean Corp Hgb Conc 31.3 g/dL (32-36); Mean Platelet Vol. 9.9 fl (6.2-12.0); Monocyte# 0.65 X10^3/uL; Monocyte% 13.1 % (0-10); NRBC Flagged by Analyzer 0 % (0-5); Neutrophil % 44.3 % (47-70); Platelet Count 232 K/mm3 (150-450); RBC Distribution Width CV 14.3 % (11.6-14.6); RBC Distribution Width SD 50.3 fl (35.1-43.9)
[2022-10-31 07:37] LABS: Anion Gap 3 (5-15); BUN 26 mg/dL (7-18); BUN/Creat Ratio 24.8 RATIO (10-20); Calcium,Total 8.7 mg/dL (8.5-10.1); Chloride 103 mmol/L (98-107); Creatinine, Serum 1.05 mg/dL (0.70-1.30); EST Glomerular Filtration Rate 74 mL/min (>60); Est Glom Filt Rate - Afr Amer 89 mL/min (>60); Estimated Creatinine Clearance 62.48 ml/min; Glucose 87 mg/dL (74-106); Potassium 4.6 mmol/L (3.5-5.1); Sodium Level 138 mmol/L (136-145)
[2022-10-31] MEDS: Escitalopram Oxalate 10 MG Tablet 5 MG PO (09:56)
[2022-10-31] MEDS: Aspirin 81 MG TAB.CHEW PO (09:56)
[2022-10-31] MEDS: Enoxaparin 40 MG/0.4 ML Syringe SC (09:57)
[2022-10-31] MEDS: Albuterol 2.5 MG/3 ML VIAL.NEB. INHALATION (10:53)
--- NOTE | 2022-10-31 12:20 | CASEMGMT ---
Addendum entered by Ria Simms 10/31/22 13:04: Social Work Return call from pt dgt Shahnaz and she is agreeable to placement at [facility] and she has been speaking to their admissions staff. Return message from [facility] and they are able to accept pt. SW will await determination if pt can pt accepted today. TOMMY Fairbanks Original Note: Social Work SW placed call to dgt for SNF choices and no answer. VM left. SW met with pt and explained that SNF needed to be choosen. SW did explain that [facility] states they may be able to accept into the ECF. Pt agreeble to referral there. DC assistant auto center manager to send referral. Pt stating he would like to be in the area of [facility] by his family. A list of SNF providers close to [facility] provided to pt for review. TOMMY Fairbanks
--- NOTE | 2022-10-31 12:38 | CASEMGMT ---
Discharge Planning Referral sent to [facility] via [facility]. Keri Luna, Discharge Planning
--- NOTE | 2022-10-31 15:59 | PCM.TXEXTCAR ---
Diet Diet Order/Speech Therapy: 10/28/22 07:17 Diet: Cardiac - Heart Healthy Food consistency:: Regular Liquid Consistency:: Regular/Thin Routine Orders/Code Status Suppository Frequency: Daily PRN O2 Liters per Minute: 2 O2 Frequency: Continuous Keep PO Greater than or Equal to (%): 88 Routine Lab Work: CBC (As needed) and BMP (As needed) Code Status: DNRCC-A (No intubation) Wound(s) R arm: Wound Type: Skin Tear Therapies Weight Bearing: Full weight bearing Physical Therapy: Eval and Treat Occupational Therapy: Eval and Treat Problem/Diagnosis (1) Adult failure to thrive: Status: Acute Code(s): R62.7 - Adult failure to thrive Allergies/Procedures Done in Hospital Allergies No Known Allergies Allergy (Verified 09/24/22 20:37) Procedures: None Type of Care/Length of Stay Estimated LOS: Convalescent Care Less Than 30 days Type of Care Needed: Intermediate Rehab Potential: Fair Prognosis: Fair Additional Orders/Day of Discharge Day of Discharge: 10/31/22 Discharge Plan Admission Admit Date/Time: 10/28/22 01:33 Attending Provider: Vonda Corral Primary Care Provider: Care Physician,No Primary Consulting Providers: Caleb De La Garza Discharge Orders/Prescriptions Prescriptions: No Action atorvastatin 80 mg Tablet 80 mg PO QHS gabapentin 300 mg Capsule 300 mg PO TID PRN (Reason: Pain) aspirin 81 mg Tablet,Chewable 81 mg PO DAILY lisinopril 5 mg Tablet 5 mg PO DAILY albuterol sulfate [Proventil HFA] 90 mcg/actuation Hfa Aerosol Inhaler 2 puff INHALATION Q4H PRN (Reason: Wheezing) escitalopram oxalate 5 mg Tablet 5 mg PO DAILY guaifenesin 600 mg Tablet Extended Release 12hr 1,200 mg PO Q12H PRN (Reason: Cold Symptoms) Trelegy Ellipta 100-62.5-25 mcg Blister With Device 1 inh INHALATION DAILY melatonin 3 mg Capsule 6 mg PO QHS PRN (Reason: Insomnia) trazodone 100 mg Tablet 100 mg PO QHS PRN (Reason: insomnia) Qty: 30 0RF metoprolol tartrate 25 mg Tablet 12.5 mg PO BID 30 Days Qty: 30 0RF acetaminophen 325 mg Tablet 650 mg PO Q6H PRN PRN (Reason: Pain 1-10 Or Fever >100.7) Qty: 0 0RF prednisone 10 mg tablet 10 mg PO DAILY Qty: 30 0RF Rx Instructions: 4 tabs daily for 3 days, then 3 tabs daily for 3 days, then 2 tabs daily for 3 days, then 1 tab daily for 3 days ipratropium-albuterol 0.5 mg-3 mg(2.5 mg base)/3 mL Solution For Nebulization 3 ml INHALATION Q4H 14 Days Qty: 0 0RF quetiapine 25 mg tablet 25 mg PO QHS Referrals / Follow Up: Care Physician,No Primary [Primary Care Provider] -
--- NOTE | 2022-10-31 16:00 | DS.PCM_ITS ---
Providers Date of Admission: 10/28/22 Date of Discharge: 10/31/22 Primary Care Physician: No Primary Care Phys Reason For Visit: ADULT FAILURE TO THRIVE Diagnosis Discharge Diagnosis (1) Adult failure to thrive: Status: Acute Code(s): R62.7 - Adult failure to thrive Medications at Discharge Home Medications albuterol sulfate 90 mcg/actuation aerosol inhaler (Proventil HFA) 2 puff inhala tion Q4H PRN Wheezing 09/24/22 aspirin 81 mg chewable tablet 81 mg PO DAILY heart health 09/24/22 atorvastatin 80 mg tablet 80 mg PO QHS cholesterol 09/24/22 escitalopram oxalate 5 mg tablet 5 mg PO DAILY Check with primary doctor 09/24/22 fluticasone fur. 100 mcg-umeclid 62.5 mcg-vilant 25 mcg inhalat.powder (Trelegy Ellipta) 1 inh inhalation DAILY Check with primary doctor 09/24/22 gabapentin 300 mg capsule 300 mg PO TID PRN Pain 09/24/22 guaifenesin 600 mg tablet, extended release 12 hr 1,200 mg PO Q12H PRN Cold Symptoms 09/24/22 melatonin 3 mg capsule 6 mg PO QHS PRN Insomnia 09/24/22 trazodone 100 mg tablet 100 mg PO QHS PRN insomnia #30 tabs 09/30/22 metoprolol tartrate 25 mg tablet 12.5 mg (1/2 x 25 mg) PO BID 30 days #30 tabs 10/02/22 acetaminophen 325 mg tablet 650 mg (2 x 325 mg) PO Q6H PRN PRN Pain 1-10 Or Fever >100.7 #0 tabs 10/08/22 ipratropium 0.5 mg-albuterol 3 mg (2.5 mg base)/3 mL nebulization soln 3 ml inhalation Q4H 14 days #0 mL 10/08/22 quetiapine 25 mg tablet 25 mg PO QHS 10/28/22 Hospital Course Procedures - (Chest x-ray) Summary of Care Provided Minutes Spent on Discharge: 25 Hospital Course: Mr. Baltazar is a 73-year-old white male with a history of COPD and chronic hypoxic respiratory failure on 5 L of nasal cannula previously which we were able to wean to 2 L nasal cannula while he has been hospitalized who presented to the emergency department at [facility] on 10/28/2022 due to the felicia bility to care for himself. He had recently been hospitalized here from 10/03/2022 through 10/08/2022 and discharged to a halfway. He was discharged from the nursing facility on 10/27/2022 and had worsening shortness of breath despite him wearing his oxygen and unfortunately did not respond to nebulizer treatment. He denied any chest pain, diaphoresis, nausea, vomiting, or or fever/chills on presentation. He indicated he simply was not able to take care for himself at home and needed to be placed in a long-term nursing facility. Evidently, he and his daughter had been working on this as an outpatient but was not able to be pursued for about a week so he came to the emergency department for ongoing care. He was admitted to the medical floor under observation status and therapy services were consulted. He was seen by physical therapy who did not feel he was safe to go home. He had no medical needs for admission and was at his baseline oxygenation throughout his entire hospital course. In fact he only required 2 L nasal cannula to maintain oxygen saturations above 88%. He was medically stable throughout his entire hospitalization and labs showed no abnormalities. We did alter his blood pressure medication some as his blood pressures were low normal. We discontinued his lisinopril and decrease his metoprolol to 12.5 mg p.o. twice daily. It may be that we are able to eliminate this altogether and ongoing blood pressure should be monitored. He was able to be accepted for shelter facility placement after working extensively with social work during his hospitalization. He was discharged in stable medical condition on 10/31/2022. He does have a pulmonary nodule that was noted on CAT scan previously and will need pulmonary medicine follow-up. I have referred to our local immigration manager however if that is not convenient due to his placement being so far away he may need to be referred to a immigration manager that is closer to the vicinity at which his new nursing facility is located. Discharge diagnoses: Adult failure to thrive Chronic hypoxic respiratory failure COPD CAD Hypertension History of arm amputation-left Depression Insomnia Physical Exam Const alert, oriented x3, no apparent distress and average body habitus Constitutional Narrative: Elderly, chronically ill-appearing white male, lying in bed sleeping, arouses easily upon me entering the room and normally interactive, appears comfortable nontoxic General Appearance: cooperative, comfortable, well kempt and well developed Orientation / Consciousness: awake, oriented to person, oriented to place and oriented to time Exam Limitations: no limitations Nutritional Appearance: thin HEENT normocephalic, head/scalp atraumatic and moist oral mucous membranes HEENT Narrative: Dentition is poor, Mallampati is 2, no thrush Resp normal respiratory effort, no retractions, no use of accessory muscles and clear to auscultation bilaterally Resp Narrative: Severely diminished diffusely but no adventitious sounds noted Auscultation: Negative for rales, rhonchi or wheezes Cardio regular rate, regular rhythm, S1 normal heart sound, S2 normal heart sound, no murmurs, no rub, no gallops and no clicks GI normal to inspection, nondistended, normoactive bowel sounds, soft to palpation and non-tender Extremity no clubbing, cyanosis or edema Extremity Narrative: Pedal pulses are 2+ Neuro oriented x3, moves all extremities and no focal motor deficits Speech: speech normal Psych affect normal Psych Narrative: Affect is flattened seems depressed however is appropriate for the situation Weight / BMI Weight Weight: 70.5 kg Body Mass Index (BMI) 22.9 ABG / Lab / Microbiology Data 10/31/22 06:30 10/31/22 06:30 Laboratory: Laboratory Results - last 24 hr 10/31/22 06:30: WBC 5.0, RBC 3.50 L, Hgb 10.5 L, Hct 33.6 L, MCV 96.0 H, MCH 30.0, MCHC 31.3 L, RDW Std Deviation 50.3 H, RDW Coeff of Jessica 14.3, Plt Count 232, MPV 9.9, Immature Gran % (Auto) 0.400, Neut % (Auto) 44.3 L, Lymph % (Auto) 34.8, Brown % (Auto) 13.1 H, Eos % (Auto) 6.8 H, Baso % (Auto) 0.6, Absolute Neuts (auto) 2.2, Absolute Lymphs (auto) 1.73, Nucleated RBC % 0, Sodium 138, Potassium 4.6, Chloride 103, Carbon Dioxide 32.0, Anion Gap 3 L, BUN 26 H, Creatinine 1.05, Estim Creat Clear Calc 62.48, Est GFR (MDRD) Af Amer 89, Est GFR (MDRD) Non-Af 74, BUN/Creatinine Ratio 24.8 H, Glucose 87, Calcium 8.7 Meaningful Use Info Meaningful Use Diagnoses (Choose all that apply): None applicable Discharge Plan Admission Admit Date/Time: 10/28/22 01:33 Primary Reason for Your Visit: Failure to thrive Attending Provider: Vonda Corral Primary Care Provider: Nanette Physician,No Primary Consulting Providers: Caleb De La Garza Discharge Orders/Prescriptions Prescriptions: Continued atorvastatin 80 mg Tablet 80 mg PO QHS gabapentin 300 mg Capsule 300 mg PO TID PRN (Reason: Pain) aspirin 81 mg Tablet,Chewable 81 mg PO DAILY albuterol sulfate [Proventil HFA] 90 mcg/actuation Hfa Aerosol Inhaler 2 puff INHALATION Q4H PRN (Reason: Wheezing) escitalopram oxalate 5 mg Tablet 5 mg PO DAILY guaifenesin 600 mg Tablet Extended Release 12hr 1,200 mg PO Q12H PRN (Reason: Cold Symptoms) Trelegy Ellipta 100-62.5-25 mcg Blister With Device 1 inh INHALATION DAILY melatonin 3 mg Capsule 6 mg PO QHS PRN (Reason: Insomnia) trazodone 100 mg Tablet 100 mg PO QHS PRN (Reason: insomnia) Qty: 30 0RF metoprolol tartrate 25 mg Tablet 12.5 mg PO BID 30 Days Qty: 30 0RF acetaminophen 325 mg Tablet 650 mg PO Q6H PRN PRN (Reason: Pain 1-10 Or Fever >100.7) Qty: 0 0RF ipratropium-albuterol 0.5 mg-3 mg(2.5 mg base)/3 mL Solution For Nebulization 3 ml INHALATION Q4H 14 Days Qty: 0 0RF quetiapine 25 mg tablet 25 mg PO QHS Discontinued lisinopril 5 mg Tablet 5 mg PO DAILY prednisone 10 mg tablet 10 mg PO DAILY Qty: 30 0RF Rx Instructions: 4 tabs daily for 3 days, then 3 tabs daily for 3 days, then 2 tabs daily for 3 days, then 1 tab daily for 3 days Referrals / Follow Up: Care Physician,No Primary [Primary Care Provider] - Lucio Hidalgo MD [Med Staff - Active Staff] - Within 1 Month (pulmonary nodule--> appointment will be need to be made) Disposition Disposition (needs filled in before D/C Order can be placed): Long-Term Facility Charges/Coding Visit Charges Inpatient E&M: 22380 SNF Disch
--- NOTE | 2022-10-31 16:34 | CASEMGMT ---
Social Work [facility] is able to accept pt today. Physician notified and pt is ready for dc today. PASRR completed in [facility] and sent along with discharge orders to [facility]. Transportation arranged with [facility] for 7:30 grain picker via cot. SW updated pt and he is agreeable to dc plan. VM left with pt dgt Shahnaz updating on discharge plan. Nursing and [facility] notified of grain picker time. Disposition: [facility], intermediate level of care private pay TOMMY Fairbanks
--- NOTE | 2022-10-31 19:10 | NURSING ---
Report called to Courtney jay [facility] at this time.
[2022-10-31] MEDS: QUEtiapine 25 MG Tablet PO (20:25)
[2022-10-31] MEDS: Atorvastatin Calcium 80 MG Tablet PO (20:25)
[2022-10-31] MEDS: Metoprolol Tartrate 25 MG Tablet 12.5 MG PO (20:25)
--- NOTE | 2022-10-31 22:38 | NURSING ---
[facility] called requesting update on pt pick-up d/t they changed the time at 1949 to 2129. per [facility] should be her in 30 mins (2300)
== END 2022-10-31 23:45 | disposition skilled nursing facility (03) ==
LOC: ED 10-28 01:41 → MS3 10-28 03:19
PROVIDERS: Admitting Provider Hospitalist; Emergency Provider Emergency Medicine; Visit Provider Internal Medicine
DX: R62.7 Adult failure to thrive (principal); J43.9 Emphysema, unspecified; J96.11 Chronic respiratory failure with hypoxia; F32.A Depression, unspecified; Z79.82 Long term (current) use of aspirin; I10 Essential (primary) hypertension; G47.00 Insomnia, unspecified; R53.81 Other malaise; Z87.891 Personal history of nicotine dependence; Z79.51 Long term (current) use of inhaled steroids; R53.1 Weakness; R91.1 Solitary pulmonary nodule; I25.10 Atherosclerotic heart disease of native coronary artery without angina pectoris; Z99.81 Dependence on supplemental oxygen; Z79.899 Other long term (current) drug therapy; Z89.222 Acquired absence of left upper limb above elbow
CPT/HCPCS: 36415; 71046; 80048; 83735; 83880; 85025; 93005; 94640; 96372; 97161; 97165; 97530; 97535; 99221; 99285; A4216; G0378